=== PATIENT | female | born 1940 | race Caucasian/White ===

== ENCOUNTER 2016-10-23 20:12 | Inpatient (IN) | payer OTHER, MEDICARE ==
[~2016-10-23] VITALS: Ht 165.1 cm; Wt 83.5 kg
[~2016-10-23 20:12] MED LIST: AMT100 PO; ASPI-435 PO; BUTA1CAP17 PO; CLC100 PO; CYCL10TA6 PO; DILT120C67 PO; FLUT1INH7 PO; FRS/40 PO; FSM70 PO; HYDR2.5L TOP; IPRA1AER2 INH; IPRASOL4 INH; LDDP5 TD; LORA1TAB13 PO; LOSA100T30 PO; NITR0.4S UT; OXGN; OXYC-609 PO; OXYC15TA89 PO; PANT40TA PO; PLV75 PO; POTA20TA16 PO; PRED10TA PO; ROFL1TAB5 PO; SIMV10TA2 PO; TRMCR130WC TOP; TYL325X PO; UMEC1INH PO; VTMD PO
[2016-10-23] MEDS ORDERED: ALPR-411 PO (21:01)
[2016-10-23] MEDS ORDERED: BACL10TA PO (21:01)
[2016-10-23] MEDS ORDERED: TOPI100T20 PO (21:01)
[2016-10-23] MEDS ORDERED: CYNI1000 SC (21:01)
[2016-10-23] MEDS ORDERED: LOSA100T2 PO (21:01)
--- NOTE | 2016-10-23 21:07 | EMERGENCY ROOM VISIT NOTE ---
History Report prepared by Sharmin: Yassine Hou Under the Supervision of: Dr. Jesse Quintana M.D. First contact with patient: 20:56 Chief Complaint: RESPIRATORY PROBLEMS Stated Complaint: SOB,CHEST PAIN Nursing Triage Summary: Pt reports difficulty breathing, hx of COPD. pt reports back pain. denies chest pain. pt reports she uses Oxygen 4L nc at all times. History of Present Illness The patient is a 76 year old female with a history of COPD who presents to the Emergency Room with complaints of persistent shortness of breath throughout the week. The patient has a history of COPD for which she receives nebulizer treatments and wears BiPAP at night. She has been using BiPAP during the day lately secondary to shortness of breath. She wears 4L of oxygen. She takes Prednisone 10 mg as well. The patient also complains of clear productive cough. She has chest pain intermittently that is improved after taking Nitroglycerin. She has also had abdominal pain secondary to constipation. She denies fevers or chills. She had a fall two days ago but did not sustain any injuries. She has not seen her doctor in over two months. The patient lives alone but is frequently checked on by her grandson. She does have a cardiac history. She is not currently on antibiotics. Source of History: patient, family Onset: this week Position: other (respiratory) Quality: other (short of breath) Timing: other (persistent) Associated Symptoms: + abdominal pain, + chest pain, + cough, No chills, No fevers Review of Systems See HPI for pertinent positives & negatives. A total of 10 systems reviewed and were otherwise negative. Past Medical & Surgical Medical Problems: (1) AC MYOCARDIAL INFARCT,SUBENDO INFARCT,INITIAL EPIS (2) Acute bronchitis (3) ANXIETY STATE NOS (4) AORTIC VALVE DISORDER (5) ASTHMA, UNSPECIFIED (6) c diff colitis (7) CARDIOMYOPATH IN OTH DIS (8) Chest wall pain (9) CHRONIC RESPIRATORY FAILURE (10) Clostridium difficile colitis (11) CONGESTIVE HEART FAILURE NOS (12) COPD exacerbation (13) COPD exacerbation (14) copd exacerbation (15) ESOPHAGEAL REFLUX (16) Herpes zoster (17) HYPERLIPIDEMIA NEC/NOS (18) inflamation in lung (19) Multiple rib fractures (20) Multiple rib fractures (21) Multiple rib fractures (22) Neck pain, bilateral (23) OBSTR CHRONIC BRONCHITIS, W (ACUTE) EXACERBATION (24) OBSTRUCTIVE SLEEP APNEA (ADULT) (PEDIATRIC) (25) OSTEOARTHROS NOS-UNSPEC (26) OSTEOPOROSIS NOS (27) Rib pain on right side (28) Shortness of breath (29) Thoracic compression fracture (30) TOBACCO USE DISORDER Old medical records were reviewed. Nurse's notes were reviewed and I agree with. Family History FHx: lung disease Social History Smoking Status: Never Smoker Alcohol Use: none Drug Use: none Marital Status: Housing Status: lives with family Occupation Status: retired Current/Historical Medications Scheduled Amitriptyline HCl (Amitriptyline HCl), 100 MG PO HS Aspirin (Aspirin 81), 81 MG PO DAILY Clopidogrel Bisulfate (Clopidogrel), 75 MG PO DAILY Diltiazem Hcl Extended Release (Diltiazem Hcl Er), 120 MG PO DAILY Docusate Sodium (Docusate Sodium), 10 MG PO BID Fluticasone Furoate-Vilanterol (Breo Ellipta 200-25 Mcg/INH), 1 INHA PO DAILY Furosemide (Lasix), 120 MG PO DAILY Hydrocortisone (Topical) (Hydrocortisone), 1 APPLN TOP BID Ipratropium-Albuterol (Combivent Respimat), 1 PUFFS INH QID Ipratropium-Albuterol (Duoneb), 1 TREATMENT INH Q4H Losartan Potassium & Hydrochlo (Hyzaar), 12.5-100 MG PO DAILY Oxycodone Hcl (Oxycontin), 15 MG PO Q12 Oxygen (Oxygen), 4 LITERS NA CONTINOUS Pantoprazole (Protonix), 40 MG PO DAILY Potassium Ext Rel (Klor-Con), 60 MEQ PO TID Prednisone Tab (Prednisone), 10 MG PO QAM Roflumilast (Daliresp), 500 MCG PO DAILY Simvastatin (Zocor), 10 MG PO QPM Topiramate (Topamax), 100 MG PO DAILY Triamcinolone Acet (Aristocort 0.1%), 1 APPLN TOP BID Umeclidinium [place] (Incruse Ellipta), 1 INHA PO DAILY Scheduled PRN Acetaminophen (Tylenol), 650 MG PO Q4H PRN for Pain or Fever Alprazolam (Xanax), 0.5 MG PO Q12 PRN for Anxiety and/or Sedation Baclofen (Lioresal), 10 MG PO TID PRN for spasms Ikqshhqlfi-Bfwbdwsjovsai-Wgzdt (Fioricet), 1 TAB PO Q4 PRN for headache Nitroglycerin (Nitrostat), 0.4 MG UT UD PRN for Chest Pain Oxycodone HCl (Oxycodone HCl), 5 MG PO Q3.5H PRN for Pain Miscellaneous Medications Cyanocobalamin (Cyanocobalamin), 1 ML SC Allergies Coded Allergies: Zolpidem (Verified Allergy, Intermediate, RASH, 06/17/16) Banana (Verified Allergy, Unknown, 06/17/16) Metoprolol (Verified Adverse Reaction, Severe, BRONCHOSPASM,EXAC.COPD, ) Uncoded Allergies: "CLEANING PRODUCTS" (Allergy, Intermediate, Cleaning Products, 01/18/15) Physical Exam Vital Signs Date Time Temp Pulse Resp B/P Pulse Ox O2 Delivery O2 Flow Rate FiO2 10/23/16 22:13 73 16 134/81 100 Nebulizer 10.0 10/23/16 20:44 93 10/23/16 20:34 99 Nasal Cannula 4.0 10/23/16 20:21 96 Nasal Cannula 4.0 10/23/16 20:17 36.7 95 20 142/76 96 Nasal Cannula 4.0 Physical Exam General: Chronically ill-appearing older female, wearing baseline 4L nasal cannula. HEENT: Normal cephalic atraumatic. Pupils are equal round and reactive to light. Extraocular movements are intact. Oropharynx is pink with moist mucous membranes. No swelling of the mouth lips or tongue. Neck: Supple with a midline trachea. No meningeal signs or stiffness, no JVD or bruits. No Stridor. Chest: Scattered wheezing with diminished air movement, mild tachypnea. Heart: regular rate and rhythm. Abdomen: Soft nontender, nondistended without rebound guarding or rigidity. Extremities: No cyanosis clubbing or edema. No calf tenderness or assymetry. Several lower extremity bruises with no significant swelling, no petechiae. Spine/Back. Non tender to palpation. No CVA tenderness Skin: Good turgor without rashes. Neurologic exam: Cranial nerves two through 12 are intact. Motor and sensation are intact and symmetrical throughout. Medical Decision & Procedures ER Provider Diagnostic Interpretation: X-ray results as stated below per interpretation by me and the radiologist: CHEST ONE VIEW PORTABLE HISTORY: Atypical CHEST PAIN COMPARISON: Chest 06/07/2016. FINDINGS: The heart is normal in size. No pleural effusions. No pneumothorax. A few bibasilar linear scarlike densities remain unchanged. No new focal lung consolidations to suggest pneumonia. No evidence for pulmonary edema. Mild emphysema. IMPRESSION: No acute process. Electronically signed by: Redd Buck M.D. 10/23/2016 9:59 PM Dictated Date/Time: 10/23/2016 9:58 PM Laboratory Results 10/23/16 21:20 Red Blood Count 4.50, Mean Corpuscular Volume 85.6, Mean Corpuscular Hemoglobin 26.9, Mean Corpuscular Hemoglobin Concent 31.4, Mean Platelet Volume 9.0, Neutrophils (%) (Auto) 76.8, Lymphocytes (%) (Auto) 12.6, Monocytes (%) (Auto) 6.3, Eosinophils (%) (Auto) 3.6, Basophils (%) (Auto) 0.5, Neutrophils # (Auto) 6.77, Lymphocytes # (Auto) 1.11, Monocytes # (Auto) 0.56, Eosinophils # (Auto) 0.32, Basophils # (Auto) 0.04 10/23/16 21:20 Test 10/23/16 21:20 10/23/16 21:25 White Blood Count 8.82 K/uL (4.8-10.8) Red Blood Count 4.50 M/uL (4.2-5.4) Hemoglobin 12.1 g/dL (12.0-16.0) Hematocrit 38.5 % (37-47) Mean Corpuscular Volume 85.6 fL (80-100) Mean Corpuscular Hemoglobin 26.9 pg (25-34) Mean Corpuscular Hemoglobin Concent 31.4 g/dl (32-36) Platelet Count 329 K/uL (130-400) Mean Platelet Volume 9.0 fL (7.4-10.4) Neutrophils (%) (Auto) 76.8 % Lymphocytes (%) (Auto) 12.6 % Monocytes (%) (Auto) 6.3 % Eosinophils (%) (Auto) 3.6 % Basophils (%) (Auto) 0.5 % Neutrophils # (Auto) 6.77 K/uL (1.4-6.5) Lymphocytes # (Auto) 1.11 K/uL (1.2-3.4) Monocytes # (Auto) 0.56 K/uL (0.11-0.59) Eosinophils # (Auto) 0.32 K/uL (0-0.5) Basophils # (Auto) 0.04 K/uL (0-0.2) RDW Standard Deviation 43.7 fL (36.4-46.3) RDW Coefficient of Variation 13.9 % (11.5-14.5) Immature Granulocyte % (Auto) 0.2 % Immature Granulocyte # (Auto) 0.02 K/uL (0.00-0.02) Anion Gap 9.0 mmol/L (3-11) Est Creatinine Clear Calc Drug Dose 92.2 ml/min Estimated GFR () 105.2 Estimated GFR (Non- 90.8 BUN/Creatinine Ratio 24.0 (10-20) Calcium Level 8.6 mg/dl (8.5-10.1) Total Bilirubin 0.2 mg/dl (0.2-1) Direct Bilirubin < 0.1 mg/dl (0-0.2) Aspartate Amino Transf (AST/SGOT) 11 U/L (15-37) Alanine Aminotransferase (ALT/SGPT) 22 U/L (12-78) Alkaline Phosphatase 99 U/L (45-117) Total Protein 6.8 gm/dl (6.4-8.2) Albumin 3.4 gm/dl (3.4-5.0) Lipase 88 U/L (73-393) Bedside Troponin I 0.000 ng/ml (0-0.045) CY-Qeg-B-Type Natriuretic Peptide 178 pg/ml (0-900) Laboratory studies as stated above per my review. Medications Administered Medications (Trade) Dose Ordered Sig/Olimpia Route Start Time Stop Time Status Last Admin Dose Admin Methylprednisolone Sodium Succinate (Solu-Medrol IV) 125 mg ONE STAT IV 10/23/16 21:09 10/23/16 21:11 DC 10/23/16 21:30 125 MG Albuterol/ Ipratropium (Duoneb) 12 ml ONE ONCE INH 10/23/16 21:15 10/23/16 21:16 DC 10/23/16 21:36 12 ML ECG Indication: SOB/dyspnea Rate (beats per minute): 93 Rhythm: normal sinus Findings: no ectopy, other (non-specific T wave abnormalities) Comparison ECG Date: 17 June 2016 Change: no significant change ED Course 2057: Past medical records reviewed. The patient was evaluated in room C4, and a complete history and physical examination were performed. 2108: Solu-Medrol 125 mg IV. 2114: DuoNeb 12 ml INH. 2224: Checked on the patient. Updated her. 2299: [facility] Hospitalist Service consulted. The patient will be evaluated. Medical Decision Differential diagnosis includes COPD exacerbation, pneumonia, pneumothorax, acute coronary syndrome, arrhythmia. This patient comes in as described above. If she was placed in room C4. She is here for treatment and evaluation of increasing shortness of breath. She has significant history of severe COPD that is steroid and oxygen dependent and has been doing worse at home. She's been using her nebs about every hour or so and she gets extremely short of breath with any movement. She's had no fever or chills. No trauma of injury. Chest x-ray was obtained and was clear. She was given albuterol and Atrovent nebs over one hour and was feeling somewhat better but with this she still had some wheezing. She does not feel she is well enough to go home at this point I do think she needs to be admitted for the reasons outlined above. I do not find any evidence of pneumonia or CHF. Her cardiac evaluation was unremarkable so far. She will be admitted to the [facility] hospitalist group. Consults Time Called: [phone] Consulting Physician: [facility] Hospitalist Service Returned Call: [phone] Impression Primary Impression: COPD exacerbation Additional Impression: SOB (shortness of breath) Scribe Attestation The scribe's documentation has been prepared under my direction and personally reviewed by me in its entirety. I confirm that the note above accurately reflects all work, treatment, procedures, and medical decision making performed by me. Departure Information Dispostion Being Evaluated By Hospitalist Referrals Jaswant Patel M.D. (PCP) Patient Instructions My [facility] Problem Qualifiers
[2016-10-23] MEDS ORDERED: METHYLPREDNISOLONE 125 MG VIAL IV STA (21:09)
[2016-10-23] MEDS ORDERED: ALBUT/IPRATROP 3MG/0.5MG NEB 3 ML VIAL INH ONE (21:15)
[2016-10-23 21:32] LABS: BASO % 0.5 %; BASO ABS # 0.04 K/uL (0-0.2); COMPLETE YES; EOS % 3.6 %; HEMATOCRIT 38.5 % (37-47); IG% 0.2 %; LYMPH % 12.6 %; LYMPH ABS # 1.11 K/uL (1.2-3.4); MEAN CELL VOLUME 85.6 fL (80-100); MEAN CORPUSCULAR HEMOGLOBIN 26.9 pg (25-34); MEAN CORPUSCULAR HGB CONC 31.4 g/dl (32-36); MONO % 6.3 %; NEUT % 76.8 %; PLATELET COUNT 329 K/uL (130-400); WHITE BLOOD COUNT 8.82 K/uL (4.8-10.8)
[2016-10-23 21:48] LABS: ALT/SGPT 22 U/L (12-78); BLOOD UREA NITROGEN 14 mg/dl (7-18); CARBON DIOXIDE 31 mmol/L (21-32); CHLORIDE 103 mmol/L (98-107); CREATININE 0.58 mg/dl (0.60-1.20); GLUCOSE 117 mg/dl (70-99); POTASSIUM 3.8 mmol/L (3.5-5.1); SODIUM 143 mmol/L (136-145)
[2016-10-23 21:51] LABS: ALKALINE PHOSPHATASE 99 U/L (45-117); AST/SGOT 11 U/L (15-37)
[2016-10-23 22:00] LABS: CALCIUM 8.6 mg/dl (8.5-10.1)
--- NOTE | 2016-10-23 22:01 | DIAGNOSTIC IMAGING REPORT ---
CHEST ONE VIEW PORTABLE HISTORY: Atypical CHEST PAIN COMPARISON: Chest 06/07/2016. FINDINGS: The heart is normal in size. No pleural effusions. No pneumothorax. A few bibasilar linear scarlike densities remain unchanged. No new focal lung consolidations to suggest pneumonia. No evidence for pulmonary edema. Mild emphysema. IMPRESSION: No acute process. Electronically signed by: Redd Buck M.D. 10/23/2016 9:59 PM Dictated Date/Time: 10/23/2016 9:58 PM
[2016-10-23] MEDS ORDERED: ALUMINUM/MAGNESIUM/SIMETH (MAALOX MAX) 30 ML UDC PO PRN (23:15)
[2016-10-23] MEDS ORDERED: MAGNESIUM HYDROXIDE SUSP 30 ML UDC PO PRN (23:15)
[2016-10-23] MEDS ORDERED: ONDANSETRON INJ 2 MG/ML 2 ML VIAL IV PRN (23:15)
[2016-10-23] MEDS ORDERED: BACLOFEN 10 MG TAB PO PRN (23:30)
[2016-10-23] MEDS ORDERED: ALPRAZOLAM 0.5 MG TAB PO PRN (23:30)
[2016-10-23] MEDS ORDERED: NITROGLYCERIN 0.4 MG SL PER TAB CHARGE UT PRN (23:30)
--- NOTE | 2016-10-23 23:41 | History and Physical ---
History & Physical Date & Time of Service: Oct 23, 2016 at 23:20 Chief Complaint: Sob,Chest Pain Primary Care Physician: Jaswant Patel M.D. History of Present Illness Is a very pleasant 76-year-old female, with an extensive medical history which includes COPD, coronary artery disease, congestive heart failure, who presents today with shortness of breath for the past month, but acute worsening over the past 1 week. The patient states "I haven't been breathing write for a while". At her baseline she denies having a chronic cough. She states that occasionally she would have a dry quite hack, but thinks it's due to the use of her BiPAP. However for the past week she has been noticing a mildly productive cough. She states that the sputum is clear. There is no blood or purulence to the sputum. She also states that she is feeling constantly wheezy. She notes that she is also more short of breath, particularly with exertion. She states that at her baseline she is able to walk approximately 20 feet to the bathroom, but now for the past month she needs to stop half way and catch her breath before completing this task. She does have a history of CAD, and does note that she gets chest pain which she describes as "heartburn centrally". She has been taking her nitroglycerin for this, and notes that it actually helps. She also takes a PPI which she notes provides additional relief. She does note that she's been experiencing this discomfort more more frequently for the past month. It is not associated with exertion and happens mostly at rest. She denies palpitations. She denies lightheadedness, or syncope. She denies fevers, but says that she's been feeling sweaty, and has been having chills. Her appetite has been poor as well as her intake. She denies any nausea or vomiting. She denies abdominal pain. She has not had any diarrhea. She does note constipation for the past year since starting opiates for rib and vertebral fractures. She was most recently in [place] approximately 3 weeks ago. Her daughter, who is at the bedside also states that she was much more short of breath and meat than usual this year in [place] and as a result had to come back home sooner. Past Medical/Surgical History Medical Problems: (1) AC MYOCARDIAL INFARCT,SUBENDO INFARCT,INITIAL EPIS Status: Chronic (2) Acute bronchitis Status: Resolved (3) ANXIETY STATE NOS Status: Chronic (4) AORTIC VALVE DISORDER Status: Chronic (5) ASTHMA, UNSPECIFIED Status: Chronic (6) CARDIOMYOPATH IN OTH DIS Status: Chronic (7) Chest wall pain Status: Resolved (8) CHRONIC RESPIRATORY FAILURE Status: Chronic (9) Clostridium difficile colitis Status: Resolved (10) CONGESTIVE HEART FAILURE NOS Status: Chronic (11) COPD exacerbation Status: Resolved (12) ESOPHAGEAL REFLUX Status: Chronic (13) Herpes zoster Status: Chronic (14) HYPERLIPIDEMIA NEC/NOS Status: Chronic (15) Multiple rib fractures Status: Resolved (16) Multiple rib fractures Status: Resolved (17) Multiple rib fractures Status: Resolved (18) OBSTR CHRONIC BRONCHITIS, W (ACUTE) EXACERBATION Status: Chronic (19) OBSTRUCTIVE SLEEP APNEA (ADULT) (PEDIATRIC) Status: Chronic (20) OSTEOARTHROS NOS-UNSPEC Status: Chronic (21) OSTEOPOROSIS NOS Status: Chronic (22) Rib pain on right side Status: Resolved (23) Shortness of breath Status: Resolved (24) TOBACCO USE DISORDER Status: Chronic Family History FHx: lung disease Father had colon cancer Mother had heart disease otherwise unspecified Social History Smoking Status: Former Smoker Smokeless Tobacco Use: No Alcohol Use: none Drug Use: none Marital Status: Housing status: lives with family (grandson; daughter lives 3 minutes away and does majority of care for mother) Occupational Status: retired Immunizations History of Influenza Vaccine: No History of Tetanus Vaccine?: No Tetanus Immunization Date: Jun 07, 2003 History of Pneumococcal: Yes Pneumococcal Date: Jun 07, 2004 History of Hepatitis B Vaccine: No Multi-Drug Resistant Organisms History of MDRO: No Allergies Coded Allergies: Zolpidem (Verified Allergy, Intermediate, RASH, 06/17/16) Banana (Verified Allergy, Unknown, 06/17/16) Metoprolol (Verified Adverse Reaction, Severe, BRONCHOSPASM,EXAC.COPD, ) Uncoded Allergies: "CLEANING PRODUCTS" (Allergy, Intermediate, Cleaning Products, 01/18/15) Home Medications Scheduled Amitriptyline HCl (Amitriptyline HCl), 100 MG PO HS Aspirin (Aspirin 81), 81 MG PO DAILY Clopidogrel Bisulfate (Clopidogrel), 75 MG PO DAILY Diltiazem Hcl Extended Release (Diltiazem Hcl Er), 120 MG PO DAILY Docusate Sodium (Docusate Sodium), 10 MG PO BID Fluticasone Furoate-Vilanterol (Breo Ellipta 200-25 Mcg/INH), 1 INHA PO DAILY Furosemide (Lasix), 120 MG PO DAILY Hydrocortisone (Topical) (Hydrocortisone), 1 APPLN TOP BID Ipratropium-Albuterol (Combivent Respimat), 1 PUFFS INH QID Ipratropium-Albuterol (Duoneb), 1 TREATMENT INH Q4H Losartan Potassium & Hydrochlo (Hyzaar), 12.5-100 MG PO DAILY Oxycodone Hcl (Oxycontin), 15 MG PO Q12 Oxygen (Oxygen), 4 LITERS NA CONTINOUS Pantoprazole (Protonix), 40 MG PO DAILY Potassium Ext Rel (Klor-Con), 60 MEQ PO TID Prednisone Tab (Prednisone), 10 MG PO QAM Roflumilast (Daliresp), 500 MCG PO DAILY Simvastatin (Zocor), 10 MG PO QPM Topiramate (Topamax), 100 MG PO DAILY Triamcinolone Acet (Aristocort 0.1%), 1 APPLN TOP BID Umeclidinium [place] (Incruse Ellipta), 1 INHA PO DAILY Scheduled PRN Acetaminophen (Tylenol), 650 MG PO Q4H PRN for Pain or Fever Alprazolam (Xanax), 0.5 MG PO Q12 PRN for Anxiety and/or Sedation Baclofen (Lioresal), 10 MG PO TID PRN for spasms Snarfgybtw-Yzsokzcxciccm-Ytbhq (Fioricet), 1 TAB PO Q4 PRN for headache Nitroglycerin (Nitrostat), 0.4 MG UT UD PRN for Chest Pain Oxycodone HCl (Oxycodone HCl), 5 MG PO Q3.5H PRN for Pain Miscellaneous Medications Cyanocobalamin (Cyanocobalamin), 1 ML SC Review of Systems Constitutional: + chills, + fatigue, + sweats, No fever, No weight loss Eyes: No eye pain, No redness, No worsening of vision ENT: No sore throat, No tinnitus, No unusual epistaxis Respiratory: + cough, + dyspnea on exertion, + wheezing, No hemoptysis Cardiovascular: + chest pain, No claudication, No edema, No orthopnea, No palpitations Abdomen: + constipation, No diarrhea, No nausea, No pain, No vomiting Musculoskeletal: No joint pain, No muscle pain Genitourinary - Female: No dysuria, No urinary frequency Neurologic: No memory loss, No numbness/tingling, No vertigo Psychiatric: No anxiety Hematologic / Lymphatic: No abnormal bleeding/bruising, No night sweats, No swollen lymph nodes Integumentary: No color change, No new/changing skin lesions, No rash Physical Exam Vital Signs Date Time Temp Pulse Resp B/P Pulse Ox O2 Delivery O2 Flow Rate FiO2 10/23/16 22:13 73 16 134/81 100 Nebulizer 10.0 10/23/16 20:44 93 10/23/16 20:34 99 Nasal Cannula 4.0 10/23/16 20:21 96 Nasal Cannula 4.0 10/23/16 20:17 36.7 95 20 142/76 96 Nasal Cannula 4.0 General Appearance: WD/WN, no apparent distress, + obese Head: normocephalic, atraumatic Eyes: normal inspection, EOMI ENT: hearing grossly normal, pharynx normal Neck: supple, no adenopathy, no JVD (difficult to assess, due to extensive soft tissue around the neck) Respiratory/Chest: + pertinent finding (coarse breath sounds bilaterally, and expiratory wheezing, no focal crackles) Cardiovascular: regular rate, rhythm, no gallop, no murmur Abdomen/GI: normal bowel sounds, non tender, soft Back: no CVA tenderness, no muscle spasm Extremities/Musculoskelatal: no calf tenderness, no pedal edema Neurologic/Psych: alert, normal mood/affect, oriented x 3 Skin: normal color, warm/dry, no rash Lymphatic: no adenopathy Diagnostics Laboratory Results Results Past 24 Hours Test 10/23/16 21:20 10/23/16 21:25 Range/Units White Blood Count 8.82 4.8-10.8 K/uL Red Blood Count 4.50 4.2-5.4 M/uL Hemoglobin 12.1 12.0-16.0 g/dL Hematocrit 38.5 37-47 % Mean Corpuscular Volume 85.6 80-100 fL Mean Corpuscular Hemoglobin 26.9 25-34 pg Mean Corpuscular Hemoglobin Concent 31.4 32-36 g/dl Platelet Count 329 130-400 K/uL Mean Platelet Volume 9.0 7.4-10.4 fL Neutrophils (%) (Auto) 76.8 % Lymphocytes (%) (Auto) 12.6 % Monocytes (%) (Auto) 6.3 % Eosinophils (%) (Auto) 3.6 % Basophils (%) (Auto) 0.5 % Neutrophils # (Auto) 6.77 1.4-6.5 K/uL Lymphocytes # (Auto) 1.11 1.2-3.4 K/uL Monocytes # (Auto) 0.56 0.11-0.59 K/uL Eosinophils # (Auto) 0.32 0-0.5 K/uL Basophils # (Auto) 0.04 0-0.2 K/uL RDW Standard Deviation 43.7 36.4-46.3 fL RDW Coefficient of Variation 13.9 11.5-14.5 % Immature Granulocyte % (Auto) 0.2 % Immature Granulocyte # (Auto) 0.02 0.00-0.02 K/uL Sodium Level 143 136-145 mmol/L Potassium Level 3.8 3.5-5.1 mmol/L Chloride Level 103 98-107 mmol/L Carbon Dioxide Level 31 21-32 mmol/L Anion Gap 9.0 3-11 mmol/L Blood Urea Nitrogen 14 7-18 mg/dl Creatinine 0.58 0.60-1.20 mg/dl Est Creatinine Clear Calc Drug Dose 92.2 ml/min Estimated GFR () 105.2 Estimated GFR (Non- 90.8 BUN/Creatinine Ratio 24.0 10-20 Random Glucose 117 70-99 mg/dl Calcium Level 8.6 8.5-10.1 mg/dl Total Bilirubin 0.2 0.2-1 mg/dl Direct Bilirubin < 0.1 0-0.2 mg/dl Aspartate Amino Transf (AST/SGOT) 11 15-37 U/L Alanine Aminotransferase (ALT/SGPT) 22 12-78 U/L Alkaline Phosphatase 99 45-117 U/L Total Protein 6.8 6.4-8.2 gm/dl Albumin 3.4 3.4-5.0 gm/dl Lipase 88 73-393 U/L Bedside Troponin I 0.000 0-0.045 ng/ml FD-Vvs-L-Type Natriuretic Peptide 178 0-900 pg/ml CXR normal EKG Pending Impression Assessment and Plan 76-year-old female with history of COPD, CAD, and congestive heart failure, presents with increasing shortness of breath. Given the sudden decline over the past month, I certainly would consider COPD exacerbation is likely component to her presentation. However with overall deterioration, who will be with considering alternative diagnoses, such as a worsening of her congestive heart failure, or sequelae of chronic lung disease which would include pulmonary hypertension. Our plan for her is as follows: COPD Exacerbation - DuoNeb's every 4 hours daily, and every 2 hours for shortness of breath or wheezing - Patient received 125 mg Solu-Medrol in the emergency department We'll continue with 40 mg Solu-Medrol IV twice a day; rapidly weaned down to baseline dose of 10 mg prednisone daily - Set patient up for inpatient BiPAP - Hold all home medications at this time - Consult pulmonary service, for recommendations on hold med changes in light of subacute decline over the past month - Echocardiogram to be ordered to evaluate for alternative causes of increasing shortness of breath which include: CHF, pulmonary hypertension, new wall motion abnormalities suggestive of TN - Patient would benefit from repeat pulmonary function testing, once acute illness has improved Chronic shortness of breath - Evaluate further causes with echocardiogram, as described above - Increasing chest discomfort responsive to nitroglycerin, which occurs at rest is suggestive of possible unstable angina - EKG will be obtained and evaluated for any changes compared to prior EKGs - At this point I would hold off on checking a troponin level, as the patient does not complain of chest pain currently or in the past couple days Congestive heart failure - Continue Lasix 120 mg daily with 20 mEq potassium supplementation - Daily I/O, weight - No evidence clinically of acute fluid overload, BNP is negative - We'll repeat echocardiogram to evaluate ejection fraction Coronary artery disease - Continue aspirin, Plavix, simvastatin - Patient has an allergy to metoprolol; continue diltiazem Hypertension - Continue Hyzaar Chronic Back Pain - Secondary to vertebral flat fracture - Continue Flexeril - Continue oxycodone Anxiety - Continue Xanax Constipation - Continue Colace, milk of magnesium - We'll order MiraLAX DVT prophylaxis - SCDs to the knee - Lovenox 40 mg daily Disposition - Telemetry - OT and PT orders have been placed CODE STATUS - Patient consents to chest compressions/cardioversion; declines intubation and mechanical ventilation - Designates cirilo Ontiveros as substitute decision-maker if needed Level of Care Telemetry Resuscitation Status FULL NO MECH VENTILATION VTE Prophylaxis VTE Risk Assessment Done? Y/N: Yes Risk Level: Moderate Given or contraindicated: Enoxaparin (Lovenox)SQ Assessment and Plan Attending Addendum: I have physically seen and examined this patient, have directed their medical care, have supervised the medical residents activities, and agree with the H&P as noted above, with the following changes: NONE
[2016-10-24] VITALS (11 sets, daily range): BP systolic 130–178; BP diastolic 70–82; PULSE 71–110; TEMP 36.4–37; O2SAT 90–99; Ht 165.1 cm; Wt 83.5 kg
[2016-10-24 06:29] LABS: HEMATOCRIT 38.8 % (37-47); MEAN CELL VOLUME 84.7 fL (80-100); MEAN CORPUSCULAR HEMOGLOBIN 26.6 pg (25-34); MEAN CORPUSCULAR HGB CONC 31.4 g/dl (32-36); MEAN PLATELET VOLUME 8.9 fL (7.4-10.4); PLATELET COUNT 326 K/uL (130-400); RED BLOOD COUNT 4.58 M/uL (4.2-5.4); WHITE BLOOD COUNT 10.09 K/uL (4.8-10.8)
[2016-10-24 06:38] LABS: PROTHROMBIN TIME (PATIENT) 11.2 SECONDS (9.0-12.0)
[2016-10-24 07:05] LABS: BUN/CREATININE RATIO 22.9 (10-20); CALCIUM 8.8 mg/dl (8.5-10.1); CREATININE 0.64 mg/dl (0.60-1.20); POTASSIUM 3.8 mmol/L (3.5-5.1)
[2016-10-24] MEDS: ALBUT/IPRATROP 3MG/0.5MG NEB 3 ML VIAL INH SCH ×5 (07:35→19:48)
[2016-10-24] MEDS ORDERED: INFLUENZA ADMINISTRATION CHARGE ONE (08:00)
[2016-10-24] MEDS ORDERED: INFLUENZA VIRUS QUAD VACCINE 0.5 ML SYR IM. ONE (08:00)
[2016-10-24] MEDS: TRIAMCINOLONE ACET 0.1% CR 15 GM TUBE EXT SCH ×2 (08:04→20:20)
[2016-10-24] MEDS: METHYLPREDNISOLONE IV 40 MG in SYRINGE 0 ML IV SCH ×2 (08:09→20:22)
[2016-10-24] MEDS: PANTOprazole SOD 40 MG TAB PO SCH (08:10)
[2016-10-24] MEDS: DILTIAZEM HCL 120 MG EXT REL CAP PO SCH (08:11)
[2016-10-24] MEDS: ASPIRIN 81 MG ECTAB PO SCH (08:11)
[2016-10-24] MEDS: LOSARTAN/HCTZ 50-12.5 EA TAB PO SCH (08:11)
[2016-10-24] MEDS: TOPIRAMATE 100 MG TAB PO SCH (08:12)
[2016-10-24] MEDS: POTASSIUM CHLORIDE 20 MEQ TABCR PO SCH ×3 (08:12→20:21)
[2016-10-24] MEDS: LOSARTAN POTASSIUM 50 MG TAB PO SCH (08:13)
[2016-10-24] MEDS: ROFLUMILAST 500 MCG TAB PO SCH (08:13)
[2016-10-24] MEDS: FUROSEMIDE 40 MG TAB PO SCH (08:19)
[2016-10-24] MEDS: CLOPIDOGREL BISULFATE 75 MG TAB PO SCH (08:20)
[2016-10-24] MEDS: DOCUSATE SODIUM 100 MG CAP PO SCH ×2 (08:21→20:21)
[2016-10-24] MEDS: ENOXAPARIN 40 MG/0.4 ML SYR SC SCH (08:22)
[2016-10-24] MEDS ORDERED: LEVALBUTEROL 1.25MG/3ML NEB INH PRN (08:45)
[2016-10-24] MEDS: OXYCODONE HCL 15 MG TABCR (OXYCONTIN) PO SCH ×2 (09:06→20:33)
--- NOTE | 2016-10-24 10:56 | Pulmonary Consultation ---
History General Date of Service: Oct 24, 2016. Stated Complaint: Copd Exacerbation HPI The patient is a 76 year old female who presents to [facility] with complaints of Copd Exacerbation. The patient's primary care provider is Jaswant Patel M.D.. 76-year-old female admitted for progressive dyspnea on exertion/shortness of breath at rest over the previous 3-4 weeks. The patient notes severe increase in her dyspnea at rest over the previous week and becoming to Her she presented to the emergency room. In the emergency room the patient was noted to be tachypnea joint signs of labored breathing have active wheezing on physical exam was initiated on BiPAP and given Solu-Medrol 125 mg IV. She has been noting increased dyspnea on exertion with tachypnea, nonproductive cough and atypical chest pain relieved with nitroglycerin over the past 3-4 weeks. She is also noted increasing constipation over this period of time. Currently she denies: Fever, chills, productive cough, unexplained weight loss, pleurisy or typical chest pain. Current Hospital Work-up: 1. EKG: NSR no signs of acute ischemic changes 2. WBC: 10K 3. PLT: 326 4. H/H: 12/39 5. INR: 1.0 6. PT: 11.2 7. BUN/Cr: 14/0.58 8. Pro-BNP: 178 9. SaO2: 96-100% 10 Flow Rate: 4-10L 11. Troponin I: Pending 12. CXR: Treatment: 1. Solu-Medrol: 125mg IV in the ED 2. BiPAP: 3. Lasix 20mg IV ED 4. Solu-Medrol: 40mg IV BID 5. Daliresp 500mcg OP QD 6. [place] Neb QID Previous Work-up 1. Stress Echo (01/30/15) No signs of significant myocardial ischemia Normal LVEF Mild TR 2. BAL (06/07/2016) Haemophilus Parahaemolyticus 3. CT: Chest, ABD, Pelvis (05/15/2016) Bronchiectasis of the RB7, RB10 regions with associated RLL posterior atelectasis Review of Systems Constitutional: reports: malaise, weakness ENT: reports: no symptoms Cardiovascular: reports: chest tightness Respiratory: reports: as stated in HPI Gastrointestinal: reports: as stated in HPI Genitourinary - Female: reports: no symptoms Musculoskeletal: reports: back pain, joint pain, myalgias Integumentary: reports: no symptoms Neurologic: reports: no symptoms Psychiatric: reports: no symptoms Endocrine: no symptoms Hematologic / Lymphatic: no symptoms Allergic / Immunologic: no symptoms Past Medical History Past Medical History: 1. Altered mental status 2. Ambulatory dysfunction 3. Anxiety 4. C. difficile colitis 5. Cardiomyopathy/ Chronic ischemic heart disease 6. Cataract 7. Migraines 8. Moderately Sever Chronic obstructive pulmonary disease a. Dependence on supplemental oxygen b. FEV1: 1.00/52% (11/30/2011) c. FVC: significant reversibility 9. Chronic pain 10. Chronic reflux esophagitis 11. 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 GI bleed 14. Herpes zoster 15. Hiatal hernia 16. Hyperlipidemia 17. Hypertension 18. Hypokalemia 19. Insomnia 20. Leg weakness 21. Multiple rib fractures 22. Obstructive sleep apnea 23. Osteoporosis 24. Recurrent UTI 25. Renal calculi 26. Vitamin B12 deficiency Past Surgical History: 1. Card Cath 2. Hysterectomy 3. Oophorectomy Family History FHx: lung disease 1. Asthma 2. Heart Disease 3. Colon Cancer 4. Kidney Cancer 5. Heart Disease Social History Denied: History of Drug Use Former smoker ( ) Housing Without Smoke Detectors Marital History - Never Drank Alcohol Occupation: Retired From Work [employer] Housing: lives with family (grandson; daughter lives 3 minutes away and does majority of care for mother) Hx Tobacco Use In Past Year?: No Smoking Status: Never Smoker Marital status: Housing status: lives with family (grandson; daughter lives 3 minutes away and does majority of care for mother) Occupational Status: retired Immunizations History of Influenza Vaccine: No History of Tetanus Vaccine?: No Tetanus Immunization Date: Jun 07, 2003 History of Pneumococcal: Yes Pneumococcal Date: Jun 07, 2004 History of Hepatitis B Vaccine: No History of MDRO History of MDRO: No Allergies Coded Allergies: Zolpidem (Verified Allergy, Intermediate, RASH, 06/17/16) Banana (Verified Allergy, Unknown, 06/17/16) Metoprolol (Verified Adverse Reaction, Severe, BRONCHOSPASM,EXAC.COPD, ) Uncoded Allergies: "CLEANING PRODUCTS" (Allergy, Intermediate, Cleaning Products, 01/18/15) Current Medications Reported Home Medications Medications Dose Route/Sig Max Daily Dose Days Date Category Dose Instructions Hyzaar (Losartan Potassium & Hydrochlo) 1 Tab Tab 12.5-100 Mg PO DAILY 90 10/23/16 Reported Xanax (Alprazolam) 0.5 Mg Tab 0.5 Mg PO Q12 PRN 10/23/16 Reported Lioresal (Baclofen) 10 Mg Tab 10 Mg PO TID PRN 10/23/16 Reported Cyanocobalamin 1,000 Mcg/Ml Inj 1 Ml SC 10/23/16 Reported Topamax (Topiramate) 100 Mg Tab 100 Mg PO DAILY 10/23/16 Reported Oxycodone HCl 5 Mg Tab 5 Mg PO Q3.5H PRN 06/17/16 Reported Oxycontin (Oxycodone Hcl) 15 Mg Tab 15 Mg PO Q12 06/17/16 Reported Duoneb (Ipratropium-Albuterol) 3 Ml Nebu 1 Treatment INH Q4H 06/17/16 Reported Hydrocortisone (Hydrocortisone (Topical)) 2.5 % Lot 1 Appln TOP BID 10 06/17/16 Reported Combivent Respimat (Ipratropium-Albuterol) 1 Aer Aer 1 Puffs INH QID 06/17/16 Reported Fioricet (Kfzwegdvhy-Lmmjzdrohlduu-Dodco) 1 Cap Cap 1 Tab PO Q4 PRN 06/17/16 Reported Aspirin 81 (Aspirin) 81 Mg Tab 81 Mg PO DAILY 06/17/16 Reported Prednisone 10 Mg Tab 10 Mg PO QAM 06/03/16 Reported Docusate Sodium 100 Mg Cap 10 Mg PO BID 05/23/16 Rx Incruse Ellipta (Umeclidinium [place]) 62.5 Mcg/Inh Inh 1 Inha PO DAILY 30 05/23/16 Rx Breo Ellipta 200-25 Mcg/INH (Fluticasone Furoate-Vilanterol) 1 Inh Inh 1 Inha PO DAILY 05/23/16 Rx Tylenol (Acetaminophen) 325 Mg Tab 650 Mg PO Q4H PRN 30 05/23/16 Rx Klor-Con (Potassium Chloride) 20 Meq Tabcr 60 Meq PO TID 05/15/16 Reported Daliresp (Roflumilast) 500 Mcg Tab 500 Mcg PO DAILY 04/12/16 Reported Protonix (Pantoprazole Sodium) 40 Mg Tab 40 Mg PO DAILY 01/18/15 Reported Diltiazem Hcl Er (Diltiazem Hcl Extended Release) 120 Mg Cap 120 Mg PO DAILY 01/18/15 Reported Amitriptyline HCl 100 Mg Tab 100 Mg PO HS 01/18/15 Reported Clopidogrel (Clopidogrel Bisulfate) 75 Mg Tab 75 Mg PO DAILY 01/18/15 Reported Aristocort 0.1% (Triamcinolone Acet) 90 Appln/30 Gm Cr 1 Appln TOP BID 01/19/13 Reported APPLY SPARINGLY TO AFFECTED AREA(S). Nitrostat (Nitroglycerin) 0.4 Mg Sub 0.4 Mg UT UD PRN 01/19/[address] ONE TABLET UNDER THE TONGUE EVERY MINUTES FOR UP TO 3 DOSES IF NEEDED FOR CHEST PAIN. Oxygen Gas 4 Liters NA CONTINOUS 01/19/13 Reported Zocor (Simvastatin) 10 Mg Tab 10 Mg PO QPM 04/19/11 Reported Lasix (Furosemide) 40 Mg Tab 120 Mg PO DAILY 04/19/11 Reported Physical Physical Exam Vital Signs: Date Time Temp Pulse Resp B/P Pulse Ox O2 Delivery O2 Flow Rate FiO2 10/24/16 08:30 36.8 104 18 144/70 97 Nasal Cannula 4.0 10/24/16 08:00 98 Nasal Cannula 4.0 10/24/16 07:36 110 20 98 Nasal Cannula 4.0 10/24/16 04:00 36.8 88 16 141/82 98 CPAP 10/24/16 04:00 97 Nasal Cannula 4.0 10/24/16 00:15 37.0 97 20 178/81 97 Nasal Cannula 4.0 10/23/16 23:53 76 18 128/70 97 10/23/16 22:13 73 16 134/81 100 Nebulizer 10.0 10/23/16 20:44 93 10/23/16 20:34 99 Nasal Cannula 4.0 10/23/16 20:21 96 Nasal Cannula 4.0 10/23/16 20:17 36.7 95 20 142/76 96 Nasal Cannula 4.0 General Appearance: moderate distress Head: NORMOCEPHALIC, ATRAUMATIC Eyes: PERRLA, NO DISCHARGE, EOMI, SCLERAE NORMAL ENT: NORMAL EAR EXAM, NORMAL NASAL EXAM, NORMAL MOUTH EXAM, NORMAL THROAT EXAM , NORMAL DENTAL EXAM Neck: NORMAL RANGE OF MOTION, NO TENDERNESS, TRACHEA MIDLINE, NO STRIDOR Respiratory: accessory muscle use, rhonchi, wheezing, other (thoracic ultrasound: Showing minimal bilateral B-lines at the apices notable bilateral B- lines at the bases no pleural effusions noted) Cardiovasular: REGULAR RATE/RHYTHM, NORMAL S1S2, NO M/G/R, NO MURMUR, NO GALLOP Abdomen: NO REBOUND, NO MASSES, NO GUARDING, NO ORGANOMEGALY, hypoactive bowel sounds Genitourinary - Female: EXTERNAL GENITALIA NORMAL Back: NORMAL INSPECTION, NO MIDLINE TENDERNESS, paravertebral tenderness Upper Extremities: NO EDEMA Lower Extremities: edema Edema: Bilateral LE (2+) Pulses: carotid (R) (1+), carotid (L) (1+), posterior tibial (R), posterior tibial (L) (1+) Neuro: ALERT, ORIENTED x 3, NORMAL MOTOR EXAM, NORMAL SENSATION Reflexes: biceps (R) (2+), bicpes (L) (2+), achilles (R) (2+), achilles (L) (2+ ) Babinski Testing: right (downgoing), left (downgoing) Psychiatric: NORMAL AFFECT, NO SUICIDAL IDEATION Diagnostics Labs Results Past 24 Hours Test 10/23/16 21:20 10/23/16 21:25 10/24/16 06:18 Range/Units White Blood Count 8.82 10.09 4.8-10.8 K/uL Red Blood Count 4.50 4.58 4.2-5.4 M/uL Hemoglobin 12.1 12.2 12.0-16.0 g/dL Hematocrit 38.5 38.8 37-47 % Mean Corpuscular Volume 85.6 84.7 80-100 fL Mean Corpuscular Hemoglobin 26.9 26.6 25-34 pg Mean Corpuscular Hemoglobin Concent 31.4 31.4 32-36 g/dl Platelet Count 329 326 130-400 K/uL Mean Platelet Volume 9.0 8.9 7.4-10.4 fL Neutrophils (%) (Auto) 76.8 % Lymphocytes (%) (Auto) 12.6 % Monocytes (%) (Auto) 6.3 % Eosinophils (%) (Auto) 3.6 % Basophils (%) (Auto) 0.5 % Neutrophils # (Auto) 6.77 1.4-6.5 K/uL Lymphocytes # (Auto) 1.11 1.2-3.4 K/uL Monocytes # (Auto) 0.56 0.11-0.59 K/uL Eosinophils # (Auto) 0.32 0-0.5 K/uL Basophils # (Auto) 0.04 0-0.2 K/uL RDW Standard Deviation 43.7 41.9 36.4-46.3 fL RDW Coefficient of Variation 13.9 13.7 11.5-14.5 % Immature Granulocyte % (Auto) 0.2 % Immature Granulocyte # (Auto) 0.02 0.00-0.02 K/uL Sodium Level 143 140 136-145 mmol/L Potassium Level 3.8 3.8 3.5-5.1 mmol/L Chloride Level 103 103 98-107 mmol/L Carbon Dioxide Level 31 28 21-32 mmol/L Anion Gap 9.0 9.0 3-11 mmol/L Blood Urea Nitrogen 14 15 7-18 mg/dl Creatinine 0.58 0.64 0.60-1.20 mg/dl Est Creatinine Clear Calc Drug Dose 92.2 83.5 ml/min Estimated GFR () 105.2 101.9 Estimated GFR (Non- 90.8 87.9 BUN/Creatinine Ratio 24.0 22.9 10-20 Random Glucose 117 148 70-99 mg/dl Calcium Level 8.6 8.8 8.5-10.1 mg/dl Total Bilirubin 0.2 0.2-1 mg/dl Direct Bilirubin < 0.1 0-0.2 mg/dl Aspartate Amino Transf (AST/SGOT) 11 15-37 U/L Alanine Aminotransferase (ALT/SGPT) 22 12-78 U/L Alkaline Phosphatase 99 45-117 U/L Total Protein 6.8 6.4-8.2 gm/dl Albumin 3.4 3.4-5.0 gm/dl Lipase 88 73-393 U/L Bedside Troponin I 0.000 0-0.045 ng/ml GY-Htd-Y-Type Natriuretic Peptide 178 0-900 pg/ml Prothrombin Time 11.2 9.0-12.0 SECONDS Prothromb Time International Ratio 1.0 0.9-1.1 Troponin I < 0.015 0-0.045 ng/ml Diagnostic Radiology CT: Chest, ABD, Pelvis (05/15/2016) Bronchiectasis of the RB7, RB10 regions with associated RLL posterior atelectasis EKG EKG: NSR no signs of acute ischemic changes Impression Assessment and Plan 76-year-old female admitted for acute on chronic shortness of breath/dyspnea: #1 dyspnea: At this time I agree with current steroid use and holding off on antibiotics. I will also order a noncontrast CT of the chest and patient had previous CT showing bronchiectatic change in the right lower lobe with chronic atelectasis. Also order KUB as patient has decreased/hypo-attenuated bowel sounds history of chronic opiate use and C. difficile. Also follow-up on influenza A and B swab, echocardiogram, and initiate Xopenex on a when necessary basis. Also agree with current BiPAP settings and continued use is much as tolerated. #2 ID: Order C. difficile sample in place patient isolation for C. difficile/ history of Thank you for this consultation we'll continue to follow.
--- NOTE | 2016-10-24 11:36 | DIAGNOSTIC IMAGING REPORT ---
CT OF THE CHEST WITHOUT IV CONTRAST CLINICAL HISTORY: Shortness of breath. COPD exacerbation. Right lower lobe bronchiectasis. COMPARISON STUDY: Chest CT April 12, 2016 and chest radiograph October 23, 2016. CT DOSE: 550.13 mGy.cm TECHNIQUE: Axial images of the chest were obtained without IV contrast. Images were reviewed in the axial, sagittal, and coronal planes. IV contrast was not administered for this examination. FINDINGS: No enlarged axillary, mediastinal or hilar lymph nodes are present. There is no pericardial effusion. There is moderate coronary artery calcification. An aberrant right subclavian artery is incidentally noted. Central airways are patent. There is moderate emphysema. There are no areas of consolidation to suggest pneumonia. There are no suspicious pulmonary nodules. A few small calcified and noncalcified pulmonary nodules are unchanged in its earlier exams. These are benign. No new nodules are present. There are old bilateral rib fractures. There is a severe T4 compression fracture which has progressed since exam of May 13, 2016. Minimal retropulsion at this level. Note is also made of a healing fracture through the spinous process at this level. There is a mild T3 compression fracture. IMPRESSION: 1. No acute intrathoracic findings. 2. Moderate emphysema. 3. No thoracic lymphadenopathy. 4. Severe T4 compression fracture which is old. Vertebral body height loss has significantly increased since CT of May 13, 2016. Healing fracture through the spinous process of the T4 vertebra. Electronically signed by: Ovidio Santos M.D. 10/24/2016 11:34 AM Dictated Date/Time: 10/24/2016 11:23 AM
--- NOTE | 2016-10-24 13:17 | DIAGNOSTIC IMAGING REPORT ---
KUB CLINICAL HISTORY: chronic opioid use COMPARISON STUDY: 05/13/2016 FINDINGS: There is no pathologic bowel dilatation. There is no conventional radiographic evidence organomegaly. There are no calcification suspicious for renal calculi. There are nonspecific pelvic basin calcifications likely vascular. There are old rib fractures present. There is scattered stool present within the colon. IMPRESSION: No evidence of pathologic bowel dilatation. No evidence of significant constipation. Electronically signed by: Stephen Ferrell M.D. 10/24/2016 1:15 PM Dictated Date/Time: 10/24/2016 1:13 PM
[2016-10-24] MEDS ORDERED: PERFLUTREN LIPID MICROSPHERE (DEFINITY) IV ONE (14:05)
[2016-10-24] MEDS: BUTALBITAL/ACETAMIN/CAFFEINE TAB PO PRN ×2 (14:50→19:14)
--- NOTE | 2016-10-24 17:12 | ECHOCARDIOGRAM REPORT ---
*NOTICE TO RECEIVING CONSTITUTION PARTY AGENCY This information is strictly Confidential and protected under [place] law. [place] law prohibits you from making any further disclosure of this information unless further disclosure is expressly permitted by the written consent of the person to whom it pertains or is authorized by law. A general authorization for the release of medical or other information is not sufficient for this purpose. Hospital accepts no responsibility if the information is made available to any other person, INCLUDING THE PATIENT. Interpretation Summary * Name: WANDY ROE Study Date: 10/24/2016 01:21 PM BP: 144/81 mmHg * Patient Location: [facility]\S\N283\S\2 HR: 101 * : 1940 (M/d/yyyy) Gender: Female Height: 65 in * Age: 76 yrs Ethnicity: CA Weight: 189 lb * Ordering Physician: Tylor Allen * Referring Physician: Self, Referred * Performed By: Eli Chandler [facility] * * Reason For Study: CHF * BSA: 1.9 m2 * Normal biventricular systolic function. * Mild concentric left ventricular hypertrophy. * Left ventricular diastolic dysfunction. * Mild left atrial dilatation. * No significant valvular abnormalities. Procedure Details * A complete two-dimensional transthoracic echocardiogram was performed (2D, M-mode, Doppler and color flow Doppler). * The study was technically difficult. * There were technical limitations due to patient'sPoor acoustic windows secondary to severe lung disease. * A contrast injection of Definity was performed to improve assessment of LV function. * Contrast was injected into an intravenous site in the right arm. * One vial of Definity ultrasound contrast was diluted in normal saline to a total volume of 10 ml. A total of '2' ml of solution was administered during imaging. * Lot # [id number] of Definity utilized for procedure. * Expiration date 1 AUG 20. * The attending nurse who injected the contrast agent was RONNY SCOTT CPL, RN. Left Ventricle * The left ventricle is normal in size. * There is mild concentric left ventricular hypertrophy. * A full diastolic examination was done with clinical findings of Class I diastolic dysfunction. * Left ventricular systolic function is normal. * Ejection Fraction = 60-65%. * The left ventricular wall motion is normal. Right Ventricle * The right ventricle is normal in size and function. Atria * The left atrium is mildly dilated. * Right atrial size is normal. * No ASD detected; PFO is not assessed. Mitral Valve * There is mild mitral annular calcification. * The mitral valve is grossly normal. * There is no mitral valve stenosis. * Significant mitral regurgitation is absent. Tricuspid Valve * The tricuspid valve is not well visualized, but is grossly normal. * There is no tricuspid stenosis. * Significant tricuspid regurgitation is absent. Aortic Valve * The aortic valve is not well visualized. * Aortic stenosis is absent. * Aortic valve area was calculated at 2.3 cm\S\2 using the continuity equation. * No aortic regurgitation is present. Pulmonic Valve * The pulmonic valve is not well visualized. * The pulmonary valve is inadequately visualized, but the Doppler data is adequate for interpretation. * There is no significant pulmonary regurgitation. Great Vessels * The aortic root is normal size. Pericardium/Pleural * There is no pericardial effusion. Great Vessels * Normal inferior vena cava diameter and respiratory variation suggests normal central venous pressure. MMode 2D Measurements and Calculations IVSd 1.2 cm IVSs 1.7 cm LVIDd 4.3 cm LVIDs 2.9 cm LVPWd 1.2 cm LVPWs 1.4 cm IVS/LVPW 0.99 FS 32.5 % EDV(Teich) 81.7 ml ESV(Teich) 31.7 ml EF(Teich) 61.2 % EDV(cubed) 77.9 ml ESV(cubed) 24.0 ml EF(cubed) 69.2 % % IVS thick 45.0 % % LVPW thick 20.6 % LV mass(C)d 179.2 grams LV mass(C)dI 92.8 grams/m\S\2 LV mass(C)s 162.8 grams LV mass(C)sI 84.3 grams/m\S\2 SV(Teich) 50.0 ml SI(Teich) 25.9 ml/m\S\2 SV(cubed) 53.9 ml SI(cubed) 27.9 ml/m\S\2 Ao root diam 3.8 cm Ao root area 11.3 cm\S\2 LA dimension 4.1 cm LA/Ao 1.1 LVOT diam 2.0 cm LVOT area 3.0 cm\S\2 LVAs ap4 11.4 cm\S\2 LVLs ap4 4.6 cm ESV(MOD-sp4) 24.3 ml ESV(sp4-el) 24.4 ml Doppler Measurements and Calculations MV E max steve 73.3 cm/sec MV A max steve 100.8 cm/sec MV E/A 0.73 MV P1/2t max steve 83.0 cm/sec MV P1/2t 45.2 msec MVA(P1/2t) 4.9 cm\S\2 MV dec slope 537.9 cm/sec\S\2 MV dec time 0.23 sec Ao V2 max 126.3 cm/sec Ao max PG 6.4 mmHg Ao max PG (full) 2.8 mmHg HERNANDEZ(V,A) 2.3 cm\S\2 HERNANDEZ(V,D) 2.3 cm\S\2 LV V1 max PG 3.6 mmHg LV V1 max 94.9 cm/sec PA V2 max 128.3 cm/sec PA max PG 6.6 mmHg
--- NOTE | 2016-10-24 18:00 | Family Medicine Progress Note ---
Progress Note Date of Service Oct 24, 2016. Subjective Pt evaluation today including: conversation w/ patient, physical exam, chart review, lab review Pain: denies any pain Voiding: no voiding problems 76-year-old female with past medical history of asthma, cardiomyopathy, COPD, CHF, osteoporosis, C. difficile colitis presented with complaints of shortness of breath which started about a month ago with worsening about a week ago with mildly productive cough. Has been using BiPAP overnight and tolerating it well. Feels somewhat better today than breathing is somewhat improved. Denies any chest pain, palpitations, dizziness Constitutional: No chills, No fever Eyes: No worsening of vision ENT: No hearing loss, No unusual epistaxis Respiratory: + shortness of breath, + wheezing, No cough, No sputum Cardiovascular: No chest pain Breast: No breast lump Abdomen: No nausea, No pain, No vomiting Musculoskeletal: No joint pain Female : No dysuria Neurologic: No memory loss, No paralysis Psychiatric: No depression symptoms Medications Current Inpatient Medications Medications (Trade) Dose Ordered Sig/Olimpia Route Start Time Stop Time Status Last Admin Dose Admin Enoxaparin Sodium (Lovenox Inj) 40 mg Q24H SC 10/24/16 09:00 11/23/16 08:59 10/24/16 08:22 40 MG Acetaminophen (Tylenol Tab) 650 mg Q4H PRN PO 10/23/16 23:15 11/22/16 23:14 Al Hydrox/Mg Hydrox/Simethicone (Maalox Max Susp) 15 ml Q4H PRN PO 10/23/16 23:15 11/22/16 23:14 Magnesium Hydroxide (Milk Of Magnesia Susp) 30 ml Q12H PRN PO 10/23/16 23:15 11/22/16 23:14 Ondansetron HCl (Zofran Inj) 4 mg Q6H PRN IV 10/23/16 23:15 11/22/16 23:14 Polyethylene (Miralax Powder Packet) 17 gm DAILY PRN PO 10/23/16 23:15 11/22/16 23:14 Albuterol/ Ipratropium 3 ml 3 ml QIDR INH 10/24/16 08:00 11/23/16 07:59 10/24/16 16:00 3 ML Methylprednisolone Sodium Succinate/ Syringe (Solu-Medrol IV/ Syringe) 0.64 ml @ 1.5 mls/min BID IV 10/24/16 09:00 11/23/16 08:59 10/24/16 08:09 1.5 MLS/MIN Alprazolam (Xanax Tab) 0.5 mg Q12 PRN PO 10/23/16 23:30 11/22/16 23:29 Amitriptyline HCl (Elavil Tab) 100 mg HS PO 10/24/16 21:00 11/23/16 20:59 Aspirin (Ecotrin Tab) 81 mg DAILY PO 10/24/16 09:00 11/23/16 08:59 10/24/16 08:11 81 MG Baclofen (Lioresal Tab) 10 mg TID PRN PO 10/23/16 23:30 11/22/16 23:29 Clopidogrel Bisulfate (plAVix TAB) 75 mg DAILY PO 10/24/16 09:00 11/23/16 08:59 10/24/16 08:20 75 MG Diltiazem HCl (TIAzac CAP) 120 mg DAILY PO 10/24/16 09:00 11/23/16 08:59 10/24/16 08:11 120 MG Docusate Sodium (coLACE CAP) 100 mg BID PO 10/24/16 09:00 11/23/16 08:59 10/24/16 08:21 100 MG Furosemide (Lasix Tab) 120 mg DAILY PO 10/24/16 09:00 11/23/16 08:59 10/24/16 08:19 120 MG Nitroglycerin (Nitrostat Tab) 0.4 mg UD PRN [place] 10/23/16 23:30 11/22/16 23:29 Oxycodone HCl (Oxycontin Tab) 15 mg Q12 PO 10/24/16 09:00 11/07/16 08:59 10/24/16 09:06 15 MG Pantoprazole Sodium (Protonix Tab) 40 mg DAILY PO 10/24/16 09:00 11/23/16 08:59 10/24/16 08:10 40 MG Potassium Chloride (Klor-Con Tab) 60 meq TID PO 10/24/16 09:00 11/23/16 08:59 10/24/16 14:50 60 MEQ Roflumilast (Daliresp Tab) 500 mcg DAILY PO 10/24/16 09:00 11/23/16 08:59 10/24/16 08:13 500 MCG Simvastatin (Zocor Tab) 10 mg QPM PO 10/24/16 21:00 11/23/16 20:59 Topiramate (Topamax Tab) 100 mg DAILY PO 10/24/16 09:00 11/23/16 08:59 10/24/16 08:12 100 MG Triamcinolone Acetonide (Kenalog 0.1% Cream) 1 appln BID EXT 10/24/16 09:00 11/23/16 08:59 Acetaminophen/ Butalbital/ Caffeine (Fioricet Tab) 1 tab Q4 PRN PO 10/23/16 23:30 11/22/16 23:29 10/24/16 14:50 1 TAB Miscellaneous Information (Order Awaiting Action) 1 ea QS N/A 10/24/16 08:00 11/23/16 07:59 Miscellaneous Information (Order Awaiting Action) 1 ea QS N/A 10/24/16 08:00 11/23/16 07:59 HCTZ/Losartan Potassium (Hyzaar 50-12.5 Tab) 1 tab DAILY PO 10/24/16 09:00 11/23/16 08:59 10/24/16 08:11 1 TAB Losartan Potassium (coZAAR TAB) 50 mg DAILY PO 10/24/16 09:00 11/23/16 08:59 10/24/16 08:13 50 MG Levalbuterol (Xopenex 1.25MG/ 3ML Neb) 1.25 mg Q6R PRN INH 10/24/16 08:45 11/23/16 08:44 Objective Vital Signs Date Time Temp Pulse Resp B/P Pulse Ox O2 Delivery O2 Flow Rate FiO2 10/24/16 16:26 83 20 98 Nasal Cannula 4.0 10/24/16 16:00 Nasal Cannula 4.0 10/24/16 15:21 36.7 91 16 130/74 97 10/24/16 12:00 Nasal Cannula 4.0 10/24/16 11:19 36.4 110 19 144/81 97 Room Air 10/24/16 11:11 109 20 98 Nasal Cannula 4.0 10/24/16 08:30 36.8 104 18 144/70 97 Nasal Cannula 4.0 10/24/16 08:00 98 Nasal Cannula 4.0 10/24/16 07:36 110 20 98 Nasal Cannula 4.0 10/24/16 04:00 36.8 88 16 141/82 98 CPAP 10/24/16 04:00 97 Nasal Cannula 4.0 10/24/16 00:15 37.0 97 20 178/81 97 Nasal Cannula 4.0 10/23/16 23:53 76 18 128/70 97 10/23/16 22:13 73 16 134/81 100 Nebulizer 10.0 10/23/16 20:44 93 10/23/16 20:34 99 Nasal Cannula 4.0 10/23/16 20:21 96 Nasal Cannula 4.0 10/23/16 20:17 36.7 95 20 142/76 96 Nasal Cannula 4.0 Physical Exam General Appearance: WD/WN, no apparent distress Eyes: normal inspection ENT: normal ENT inspection, hearing grossly normal Neck: supple Respiratory/Chest: chest non-tender, + decreased breath sounds Cardiovascular: regular rate, rhythm, no edema Abdomen: normal bowel sounds, non tender, soft, + distended (mildly) Extremities: no pedal edema Neurologic/Psychiatric: alert, normal mood/affect, oriented x 3 Skin: normal color Laboratory Results 10/24/16 06:18 10/24/16 06:18 Test 10/23/16 21:20 10/23/16 21:25 10/24/16 06:18 10/24/16 14:20 Immature Granulocyte % (Auto) 0.2 % White Blood Count 8.82 K/uL (4.8-10.8) Red Blood Count 4.50 M/uL (4.2-5.4) 4.58 M/uL (4.2-5.4) Hemoglobin 12.1 g/dL (12.0-16.0) Hematocrit 38.5 % (37-47) Mean Corpuscular Volume 85.6 fL (80-100) 84.7 fL (80-100) Mean Corpuscular Hemoglobin 26.9 pg (25-34) 26.6 pg (25-34) Mean Corpuscular Hemoglobin Concent 31.4 g/dl (32-36) 31.4 g/dl (32-36) Platelet Count 329 K/uL (130-400) Mean Platelet Volume 9.0 fL (7.4-10.4) 8.9 fL (7.4-10.4) Neutrophils (%) (Auto) 76.8 % Lymphocytes (%) (Auto) 12.6 % Monocytes (%) (Auto) 6.3 % Eosinophils (%) (Auto) 3.6 % Basophils (%) (Auto) 0.5 % Neutrophils # (Auto) 6.77 K/uL (1.4-6.5) Lymphocytes # (Auto) 1.11 K/uL (1.2-3.4) Monocytes # (Auto) 0.56 K/uL (0.11-0.59) Eosinophils # (Auto) 0.32 K/uL (0-0.5) Basophils # (Auto) 0.04 K/uL (0-0.2) Immature Granulocyte # (Auto) 0.02 K/uL (0.00-0.02) Total Bilirubin 0.2 mg/dl (0.2-1) Direct Bilirubin < 0.1 mg/dl (0-0.2) Aspartate Amino Transf (AST/SGOT) 11 U/L (15-37) Alanine Aminotransferase (ALT/SGPT) 22 U/L (12-78) Alkaline Phosphatase 99 U/L (45-117) Total Protein 6.8 gm/dl (6.4-8.2) Albumin 3.4 gm/dl (3.4-5.0) Lipase 88 U/L (73-393) Bedside Troponin I 0.000 ng/ml (0-0.045) IX-[id number]-Type Natriuretic Peptide 178 pg/ml (0-900) RDW Standard Deviation 41.9 fL (36.4-46.3) RDW Coefficient of Variation 13.7 % (11.5-14.5) Prothrombin Time 11.2 SECONDS (9.0-12.0) Prothromb Time International Ratio 1.0 (0.9-1.1) Anion Gap 9.0 mmol/L (3-11) Est Creatinine Clear Calc Drug Dose 83.5 ml/min Estimated GFR () 101.9 Estimated GFR (Non- 87.9 BUN/Creatinine Ratio 22.9 (10-20) Calcium Level 8.8 mg/dl (8.5-10.1) Troponin I < 0.015 ng/ml (0-0.045) Influenza Type A Antigen Neg for Influ A (NEG) Influenza Type B Antigen Neg for Influ B (NEG) Assessment and Plan 76-year-old female with past medical history of asthma, cardiomyopathy, COPD, CHF, osteoporosis, C. difficile colitis presented with complaints of shortness of breath which started about a month ago with worsening about a week ago with mildly productive cough. Acute on chronic COPD Exacerbation - DuoNeb's every 4 hours daily, and every 2 hours for shortness of breath or wheezing - 40 mg Solu-Medrol BID - Echocardiogram ordered for potential pulmonary hypertension -Pulmonology consultation- appreciate input - CT chest ordered Congestive heart failure - Continue Lasix 120 mg daily with 20 mEq potassium supplementation - Daily I/O, weight Coronary artery disease - Continue aspirin, Plavix, simvastatin - Patient has an allergy to metoprolol; continue diltiazem - Troponins trended and negative so far Hypertension - Continue Hyzaar Chronic Back Pain - Secondary to vertebral flat fracture - Continue Flexeril - Continue oxycodone Anxiety - Continue Xanax Constipation - Continue Colace, milk of magnesium and MiraLAX DVT prophylaxis - SCDs to the knee - Lovenox 40 mg daily Disposition - Telemetry - OT and PT CPR but no mechanical ventilation Resident Physician Supervision Note: I interviewed and examined the patient. Discussed with Dr. Austin and agree with findings and plan as documented in the note. Any exceptions or clarifications are listed here: Upon my examination this afternoon, the patient noted increase ease in breathing compared to admission. Pulmonary note reviewed and appreciated. Documented By: Evaristo Rojas Documented By: Evaristo Rojas Resident Tracking Resident Involvement: Resident Care Provided Care Provided: Adult Hospital Medicine
[2016-10-24] MEDS: ACETAMINOPHEN 325 MG TAB PO PRN (18:04)
[2016-10-24] MEDS: SIMVASTATIN 10 MG TAB PO SCH (20:21)
[2016-10-24] MEDS: AMITRIPTYLINE HCL 100 MG TAB PO SCH (20:21)
[2016-10-25] VITALS (11 sets, daily range): BP systolic 106–138; BP diastolic 68–82; PULSE 77–92; TEMP 36.5–36.8; O2SAT 77–98
[2016-10-25 05:53] LABS: HEMATOCRIT 37.7 % (37-47); MEAN CELL VOLUME 84.2 fL (80-100); MEAN CORPUSCULAR HEMOGLOBIN 26.6 pg (25-34); MEAN CORPUSCULAR HGB CONC 31.6 g/dl (32-36); MEAN PLATELET VOLUME 9.1 fL (7.4-10.4); PLATELET COUNT 355 K/uL (130-400); RED BLOOD COUNT 4.48 M/uL (4.2-5.4); WHITE BLOOD COUNT 12.96 K/uL (4.8-10.8)
[2016-10-25 06:37] LABS: BUN/CREATININE RATIO 27.7 (10-20); CALCIUM 9.2 mg/dl (8.5-10.1); CREATININE 0.7 mg/dl (0.60-1.20); POTASSIUM 4.6 mmol/L (3.5-5.1)
--- NOTE | 2016-10-25 07:08 | Clinical Documentation Query ---
CLINICAL DOCUMENTATION QUERY 76 year old female with a history of COPD who presents to the Emergency Room with complaints of persistent shortness of breath. Pulmonology is stating, "place patient on volume restriction as she is showing bilateral lower extremity 2+ edema and B-lines about midway of the thorax via ultrasound. We'll monitor patient over the next 24 hours but try to diurese 0.5-1 L over the next 24 hours." In your clinical opinion is this patient being managed for: ( ) Acute on Chronic Diastolic (Preserved EF) CHF ( ) Chronic diastolic (Preserved EF) CHF ( ) Other explanation of clinical findings (Please Explain) ( ) Unable to determine (Please Define) ( ) Need to Discuss ( ) Not Agree The medical record reflects the following clinical findings, treatment, and risk factors. Clinical Indicators: As above. Echo showed EF of 60-65%, left ventricular hypertrophy, with class I diastolic dysfunction. Treatment: Lasix, I/O's, daily weights, fluid restriction, with diuresis goal of 0.5-1L, Echo Risk Factors: Age, hx of CHF, COPD, Please clarify and document your clinical opinion in the progress notes and discharge summary. Terms such as "probable", "suspected", "likely", "questionable", "possible", or "still to be ruled out" are acceptable. IF IN AGREEMENT, YOU MUST DOCUMENT ABOVE DIAGNOSTIC STATEMENT IN DAILY PROGRESS NOTES AND DISCHARGE SUMMARY. This document is not part of the patient's record. Thank You, Jude Fairbanks, THERESE [phone]
--- NOTE | 2016-10-25 07:11 | Clinical Documentation Query ---
CLINICAL DOCUMENTATION QUERY 76 year old female with a history of COPD who presents to the Emergency Room with complaints of persistent shortness of breath. Pulmonology is stating, "place patient on volume restriction as she is showing bilateral lower extremity 2+ edema and B-lines about midway of the thorax via ultrasound. We'll monitor patient over the next 24 hours but try to diurese 0.5-1 L over the next 24 hours." In your clinical opinion is this patient being managed for: ( ) Acute on Chronic Diastolic (Preserved EF) CHF ( ) Chronic diastolic (Preserved EF) CHF ( ) Other explanation of clinical findings (Please Explain) ( ) Unable to determine (Please Define) ( ) Need to Discuss ( X) Not Agree The medical record reflects the following clinical findings, treatment, and risk factors. Clinical Indicators: As above. Echo showed EF of 60-65%, left ventricular hypertrophy, with class I diastolic dysfunction. Treatment: Lasix, I/O's, daily weights, fluid restriction, with diuresis goal of 0.5-1L, Echo Risk Factors: Age, hx of CHF, COPD, Please clarify and document your clinical opinion in the progress notes and discharge summary. Terms such as "probable", "suspected", "likely", "questionable", "possible", or "still to be ruled out" are acceptable. IF IN AGREEMENT, YOU MUST DOCUMENT ABOVE DIAGNOSTIC STATEMENT IN DAILY PROGRESS NOTES AND DISCHARGE SUMMARY. This document is not part of the patient's record. Thank You, Jude Fairbanks, RN [phone]
[2016-10-25] MEDS: ALBUT/IPRATROP 3MG/0.5MG NEB 3 ML VIAL INH SCH ×5 (07:19→19:59)
[2016-10-25] MEDS: CLOPIDOGREL BISULFATE 75 MG TAB PO SCH (09:25)
[2016-10-25] MEDS: TRIAMCINOLONE ACET 0.1% CR 15 GM TUBE EXT SCH ×2 (09:25→21:00)
[2016-10-25] MEDS: METHYLPREDNISOLONE IV 40 MG in SYRINGE 0 ML IV SCH ×2 (09:25→21:28)
[2016-10-25] MEDS: ASPIRIN 81 MG ECTAB PO SCH (09:25)
[2016-10-25] MEDS: PANTOprazole SOD 40 MG TAB PO SCH (09:26)
[2016-10-25] MEDS: ROFLUMILAST 500 MCG TAB PO SCH (09:26)
[2016-10-25] MEDS: DOCUSATE SODIUM 100 MG CAP PO SCH ×2 (09:26→21:26)
[2016-10-25] MEDS: TOPIRAMATE 100 MG TAB PO SCH (09:26)
[2016-10-25] MEDS: LOSARTAN/HCTZ 50-12.5 EA TAB PO SCH (09:27)
[2016-10-25] MEDS: FUROSEMIDE 40 MG TAB PO SCH (09:27)
[2016-10-25] MEDS: LOSARTAN POTASSIUM 50 MG TAB PO SCH (09:27)
[2016-10-25] MEDS: POTASSIUM CHLORIDE 20 MEQ TABCR PO SCH ×3 (09:28→21:27)
[2016-10-25] MEDS: DILTIAZEM HCL 120 MG EXT REL CAP PO SCH (09:28)
[2016-10-25] MEDS: ENOXAPARIN 40 MG/0.4 ML SYR SC SCH (09:29)
[2016-10-25] MEDS: POLYETHYLENE (MIRALAX) 17 GM PACK PO PRN (09:33)
[2016-10-25] MEDS: OXYCODONE HCL 15 MG TABCR (OXYCONTIN) PO SCH ×2 (09:34→21:25)
--- NOTE | 2016-10-25 12:24 | PROGRESS NOTE ---
DATE: 10/25/2016 PROBLEM LIST: 1. Severe COPD. 2. Chronic atelectasis. 3. Dyspnea. SUBJECTIVE: The patient reports she is feeling much better today, not quite short of breath. No significant chest heaviness or tightness. She still does have little bit of cough. The cough is nonproductive. She has not noticed any wheezing. No significant shortness of breath on exertion. She is still using her oxygen and still using BiPAP. She has been diuresing quite a bit. No chest pain. She does complain a little bit of left-sided flank/abdominal pain. She states it is in the area where she had shingles previously. She has no swelling in her extremities. No other complaints at this time. OBJECTIVE: GENERAL: The patient is a 76-year-old female in no acute distress. She is alert and oriented x3. Mood is good. Affect is good. VITAL SIGNS: Temp 36.8, pulse 84, respirations 16, blood pressure 137/78, pulse ox 93% on 2 liters. HEENT: Normocephalic, atraumatic. Pupils equal, round and reactive to light and accommodation. Extraocular movements are intact. [place] moist gingival and buccal mucosae. NECK: Short and thick. No mass. No adenopathy. No JVD. No thyromegaly. No bruit. CHEST: The patient has diminished breath sounds bilaterally. She does have few coarse wheezes. No rales noted. CARDIOVASCULAR: Regular rate and rhythm. No murmurs, gallops or rub. Normal S1, S2. ABDOMEN: Bowel sounds present. Abdomen is soft and nontender. No guarding, rigidity or organomegaly. EXTREMITIES: At most +1 edema, no erythema, no tenderness. No cyanosis or clubbing noted. NEUROLOGIC: Cranial nerves II-XII are intact. No focal deficit noted. LABORATORY DATA: Shows a white count of 12,000, H\T\H of 11.9 and 37.7, platelet count 355,000. BUN 19, creatinine 0.7, potassium is 4.6. Influenza A and B are negative. Abdominal x-ray shows no evidence of constipation. No evidence of stool retention. No other abnormality. CT of the chest shows moderate emphysema, stable T4 compression fracture which is old, dating back at least to 2016. IMPRESSION: This is a 76-year-old female with fairly severe chronic obstructive pulmonary disease at this time. She is currently on Solu-Medrol 40 b.i.d., I would continue that for another 24 hours with the possibility of transitioning her over to oral prednisone tomorrow. I think that some of what is happening can be attributed to is general overall decline in her pulmonary function. This was discussed with her as well. At this point, continue her current meds as they are. Continue aggressive pulmonary toilet. I did discuss the possibility of doing chest percussion, but patient does not feel that there is much mucous there, and with her thoracic compression fracture I would be concerned that this may cause more discomfort than anything else. For now, just continue to monitor. If patient continues to do well, she should be ready from a pulmonary aspect to be discharged within the next 24-48 hours. Patient's case reviewed and plan agreed upon. GARY
--- NOTE | 2016-10-25 13:15 | Family Medicine Progress Note ---
Progress Note Date of Service Oct 25, 2016. Subjective Pt evaluation today including: conversation w/ patient, physical exam Pain: well-controlled PO Intake: good Voiding: no voiding problems 76-year-old female with past medical history of asthma, cardiomyopathy, COPD, CHF, osteoporosis, C. difficile colitis presented with complaints of shortness of breath which started about a month ago with worsening about a week ago with mildly productive cough. Has been using BiPAP overnight and tolerating it well. Feels better. Has been getting breathing treatments which seem to be helping with her symptoms. Denies any chest pain, palpitations. Constitutional: No chills, No fever Eyes: No worsening of vision ENT: No hearing loss Respiratory: + shortness of breath, No cough, No sputum Cardiovascular: No chest pain Abdomen: No diarrhea, No nausea, No pain, No vomiting Musculoskeletal: No joint pain Female : No dysuria Psychiatric: No depression symptoms Medications Current Inpatient Medications Medications (Trade) Dose Ordered Sig/Olimpia Route Start Time Stop Time Status Last Admin Dose Admin Enoxaparin Sodium (Lovenox Inj) 40 mg Q24H SC 10/24/16 09:00 11/23/16 08:59 10/25/16 09:29 40 MG Acetaminophen (Tylenol Tab) 650 mg Q4H PRN PO 10/23/16 23:15 11/22/16 23:14 10/24/16 18:04 650 MG Al Hydrox/Mg Hydrox/Simethicone (Maalox Max Susp) 15 ml Q4H PRN PO 10/23/16 23:15 11/22/16 23:14 Magnesium Hydroxide (Milk Of Magnesia Susp) 30 ml Q12H PRN PO 10/23/16 23:15 11/22/16 23:14 Ondansetron HCl (Zofran Inj) 4 mg Q6H PRN IV 10/23/16 23:15 11/22/16 23:14 Polyethylene (Miralax Powder Packet) 17 gm DAILY PRN PO 10/23/16 23:15 11/22/16 23:14 10/25/16 09:33 17 GM Albuterol/ Ipratropium 3 ml 3 ml QIDR INH 10/24/16 08:00 11/23/16 07:59 10/24/16 12:00 3 ML Methylprednisolone Sodium Succinate/ Syringe (Solu-Medrol IV/ Syringe) 0.64 ml @ 1.5 mls/min BID IV 10/24/16 09:00 11/23/16 08:59 10/25/16 09:25 1.5 MLS/MIN Alprazolam (Xanax Tab) 0.5 mg Q12 PRN PO 10/23/16 23:30 11/22/16 23:29 Amitriptyline HCl (Elavil Tab) 100 mg HS PO 10/24/16 21:00 11/23/16 20:59 10/24/16 20:21 100 MG Aspirin (Ecotrin Tab) 81 mg DAILY PO 10/24/16 09:00 11/23/16 08:59 10/25/16 09:25 81 MG Baclofen (Lioresal Tab) 10 mg TID PRN PO 10/23/16 23:30 11/22/16 23:29 Clopidogrel Bisulfate (plAVix TAB) 75 mg DAILY PO 10/24/16 09:00 11/23/16 08:59 10/25/16 09:25 75 MG Diltiazem HCl (TIAzac CAP) 120 mg DAILY PO 10/24/16 09:00 11/23/16 08:59 10/25/16 09:28 120 MG Docusate Sodium (coLACE CAP) 100 mg BID PO 10/24/16 09:00 11/23/16 08:59 10/25/16 09:26 100 MG Furosemide (Lasix Tab) 120 mg DAILY PO 10/24/16 09:00 11/23/16 08:59 10/25/16 09:27 120 MG Nitroglycerin (Nitrostat Tab) 0.4 mg UD PRN [place] 10/23/16 23:30 11/22/16 23:29 Oxycodone HCl (Oxycontin Tab) 15 mg Q12 PO 10/24/16 09:00 11/07/16 08:59 10/25/16 09:34 15 MG Pantoprazole Sodium (Protonix Tab) 40 mg DAILY PO 10/24/16 09:00 11/23/16 08:59 10/25/16 09:26 40 MG Potassium Chloride (Klor-Con Tab) 60 meq TID PO 10/24/16 09:00 11/23/16 08:59 10/25/16 14:00 60 MEQ Roflumilast (Daliresp Tab) 500 mcg DAILY PO 10/24/16 09:00 11/23/16 08:59 10/25/16 09:26 500 MCG Simvastatin (Zocor Tab) 10 mg QPM PO 10/24/16 21:00 11/23/16 20:59 10/24/16 20:21 10 MG Topiramate (Topamax Tab) 100 mg DAILY PO 10/24/16 09:00 11/23/16 08:59 10/25/16 09:26 100 MG Triamcinolone Acetonide (Kenalog 0.1% Cream) 1 appln BID EXT 10/24/16 09:00 11/23/16 08:59 10/25/16 09:25 1 APPLN Acetaminophen/ Butalbital/ Caffeine (Fioricet Tab) 1 tab Q4 PRN PO 10/23/16 23:30 11/22/16 23:29 10/24/16 19:14 1 TAB Miscellaneous Information (Order Awaiting Action) 1 ea QS N/A 10/24/16 08:00 11/23/16 07:59 Miscellaneous Information (Order Awaiting Action) 1 ea QS N/A 10/24/16 08:00 11/23/16 07:59 HCTZ/Losartan Potassium (Hyzaar 50-12.5 Tab) 1 tab DAILY PO 10/24/16 09:00 11/23/16 08:59 10/25/16 09:27 1 TAB Losartan Potassium (coZAAR TAB) 50 mg DAILY PO 10/24/16 09:00 11/23/16 08:59 10/25/16 09:27 50 MG Levalbuterol (Xopenex 1.25MG/ 3ML Neb) 1.25 mg Q6R PRN INH 10/24/16 08:45 11/23/16 08:44 Objective Vital Signs Date Time Temp Pulse Resp B/P Pulse Ox O2 Delivery O2 Flow Rate FiO2 10/25/16 12:40 92 20 93 Nasal Cannula 4.0 10/25/16 12:00 Room Air 2.0 10/25/16 11:11 36.8 84 16 137/78 93 Nasal Cannula 5.5 10/25/16 08:00 Room Air 2.0 10/25/16 07:45 36.7 88 18 138/82 93 Room Air 10/25/16 07:19 77 20 91 Nasal Cannula 4.0 10/25/16 04:22 36.6 85 16 115/70 98 Mask 4.0 10/25/16 04:00 Nasal Cannula 2.0 CPAP 10/25/16 00:14 36.7 81 20 122/71 96 BiPAP 2.0 10/25/16 00:00 Nasal Cannula 2.0 CPAP 10/24/16 20:00 Nasal Cannula 2.0 CPAP 10/24/16 19:48 71 20 90 Nasal Cannula 4.0 10/24/16 19:46 37.0 86 20 139/80 99 Nasal Cannula 10/24/16 16:26 83 20 98 Nasal Cannula 4.0 10/24/16 16:00 Nasal Cannula 4.0 10/24/16 15:21 36.7 91 16 130/74 97 Physical Exam General Appearance: WD/WN, no apparent distress Eyes: normal inspection ENT: normal ENT inspection, hearing grossly normal Neck: supple Respiratory/Chest: chest non-tender, normal breath sounds, no respiratory distress, no accessory muscle use, + wheezing (scattered) Cardiovascular: regular rate, rhythm, no edema Abdomen: soft, no organomegaly Extremities: + pedal edema, + pertinent finding (right lower extremity swelling which is chronic) Neurologic/Psychiatric: alert, normal mood/affect, oriented x 3 Laboratory Results 10/25/16 05:35 10/25/16 05:35 Test 10/25/16 05:35 Red Blood Count 4.48 M/uL (4.2-5.4) Mean Corpuscular Volume 84.2 fL (80-100) Mean Corpuscular Hemoglobin 26.6 pg (25-34) Mean Corpuscular Hemoglobin Concent 31.6 g/dl (32-36) RDW Standard Deviation 41.6 fL (36.4-46.3) RDW Coefficient of Variation 13.6 % (11.5-14.5) Mean Platelet Volume 9.1 fL (7.4-10.4) Anion Gap 4.0 mmol/L (3-11) Est Creatinine Clear Calc Drug Dose 76.4 ml/min Estimated GFR () 98.9 Estimated GFR (Non- 85.4 BUN/Creatinine Ratio 27.7 (10-20) Calcium Level 9.2 mg/dl (8.5-10.1) Assessment and Plan 76-year-old female with past medical history of asthma, cardiomyopathy, COPD, CHF, osteoporosis, C. difficile colitis presented with complaints of shortness of breath which started about a month ago with worsening about a week ago with mildly productive cough. Is currently on BiPAP overnight. Acute on chronic COPD Exacerbation - DuoNeb's every 4 hours daily, and every 2 hours for shortness of breath or wheezing - 40 mg Solu-Medrol BID- will transition to PO steroids tomorrow - Echocardiogram : * Normal biventricular systolic function. * Mild concentric left ventricular hypertrophy. * Left ventricular diastolic dysfunction. * Mild left atrial dilatation. * No significant valvular abnormalities. - CT chest: 1. No acute intrathoracic findings. 2. Moderate emphysema. 3. No thoracic lymphadenopathy. 4. Severe T4 compression fracture which is old. Vertebral body height loss has significantly increased since CT of May 13, 2016. Healing fracture through the spinous process of the T4 vertebra. Congestive heart failure - Continue Lasix 120 mg daily with 20 mEq potassium supplementation - Daily I/O, weight Coronary artery disease - Continue aspirin, Plavix, simvastatin - Patient has an allergy to metoprolol; continue diltiazem - Troponins trended and negative Hypertension - Continue Hyzaar Chronic Back Pain - Secondary to vertebral flat fracture - Continue Flexeril - Continue oxycodone Anxiety - Continue Xanax Constipation - Continue Colace, milk of magnesium and MiraLAX DVT prophylaxis - SCDs to the knee - Lovenox 40 mg daily Disposition - Telemetry - OT and PT CPR but no mechanical ventilation Resident Physician Supervision Note: I was present with Dr. Austin during the history and exam. I discussed the case with the resident and agree with the findings and plan as documented in the note. Any exceptions or clarifications are listed here: Subtle improvement compared to yesterday. Will continue IV solumedrol and hopefully transition to PO steroids in the AM. Documented By: Evaristo Rojas Resident Tracking Resident Involvement: Resident Care Provided (he he) Care Provided: Adult Hospital Medicine
[2016-10-25] MEDS: AMITRIPTYLINE HCL 100 MG TAB PO SCH (21:26)
[2016-10-25] MEDS: SIMVASTATIN 10 MG TAB PO SCH (21:26)
[2016-10-25] MEDS: BUTALBITAL/ACETAMIN/CAFFEINE TAB PO PRN (21:33)
[2016-10-26] VITALS (10 sets, daily range): BP systolic 94–141; BP diastolic 52–79; PULSE 70–103; TEMP 36.3–36.8; O2SAT 92–99
[2016-10-26 05:34] LABS: HEMATOCRIT 39.7 % (37-47); MEAN CELL VOLUME 84.5 fL (80-100); MEAN CORPUSCULAR HEMOGLOBIN 26.2 pg (25-34); PLATELET COUNT 369 K/uL (130-400); WHITE BLOOD COUNT 11.72 K/uL (4.8-10.8)
[2016-10-26] MEDS: ALBUT/IPRATROP 3MG/0.5MG NEB 3 ML VIAL INH SCH ×3 (05:50→15:46)
[2016-10-26 06:17] LABS: BUN/CREATININE RATIO 29.5 (10-20); CALCIUM 8.8 mg/dl (8.5-10.1); CREATININE 0.77 mg/dl (0.60-1.20); POTASSIUM 4.8 mmol/L (3.5-5.1)
[2016-10-26] MEDS: METHYLPREDNISOLONE IV 40 MG in SYRINGE 0 ML IV SCH ×2 (07:41→20:21)
[2016-10-26] MEDS: ASPIRIN 81 MG ECTAB PO SCH (07:41)
[2016-10-26] MEDS: ROFLUMILAST 500 MCG TAB PO SCH (07:42)
[2016-10-26] MEDS: LOSARTAN POTASSIUM 50 MG TAB PO SCH (07:43)
[2016-10-26] MEDS: OXYCODONE HCL 15 MG TABCR (OXYCONTIN) PO SCH ×2 (07:43→20:33)
[2016-10-26] MEDS: TOPIRAMATE 100 MG TAB PO SCH (07:43)
[2016-10-26] MEDS: DILTIAZEM HCL 120 MG EXT REL CAP PO SCH (07:44)
[2016-10-26] MEDS: CLOPIDOGREL BISULFATE 75 MG TAB PO SCH (07:44)
[2016-10-26] MEDS: POTASSIUM CHLORIDE 20 MEQ TABCR PO SCH ×3 (07:44→20:24)
[2016-10-26] MEDS: PANTOprazole SOD 40 MG TAB PO SCH (07:45)
[2016-10-26] MEDS: LOSARTAN/HCTZ 50-12.5 EA TAB PO SCH (07:45)
[2016-10-26] MEDS: FUROSEMIDE 40 MG TAB PO SCH (07:45)
[2016-10-26] MEDS: ENOXAPARIN 40 MG/0.4 ML SYR SC SCH (07:47)
[2016-10-26] MEDS: TRIAMCINOLONE ACET 0.1% CR 15 GM TUBE EXT SCH ×2 (07:47→20:22)
[2016-10-26] MEDS: DOCUSATE SODIUM 100 MG CAP PO SCH ×2 (08:19→20:25)
[2016-10-26] MEDS ORDERED: NURSING VERBAL MED ORDER ONE (14:00)
--- NOTE | 2016-10-26 18:18 | Family Medicine Progress Note ---
Progress Note Date of Service Oct 26, 2016. Subjective Pt evaluation today including: conversation w/ patient, physical exam, chart review, lab review Pain: denies pain PO Intake: good Voiding: no voiding problems Constitutional: No chills, No fever Eyes: No worsening of vision ENT: No hearing loss Respiratory: + shortness of breath, No cough Cardiovascular: No chest pain Abdomen: + constipation, No nausea, No pain Musculoskeletal: No joint pain Female : No dysuria Neurologic: No memory loss Medications Current Inpatient Medications Medications (Trade) Dose Ordered Sig/Olimpia Route Start Time Stop Time Status Last Admin Dose Admin Enoxaparin Sodium (Lovenox Inj) 40 mg Q24H SC 10/24/16 09:00 11/23/16 08:59 10/26/16 07:47 40 MG Acetaminophen (Tylenol Tab) 650 mg Q4H PRN PO 10/23/16 23:15 11/22/16 23:14 10/24/16 18:04 650 MG Al Hydrox/Mg Hydrox/Simethicone (Maalox Max Susp) 15 ml Q4H PRN PO 10/23/16 23:15 11/22/16 23:14 Magnesium Hydroxide (Milk Of Magnesia Susp) 30 ml Q12H PRN PO 10/23/16 23:15 11/22/16 23:14 Ondansetron HCl (Zofran Inj) 4 mg Q6H PRN IV 10/23/16 23:15 11/22/16 23:14 Polyethylene (Miralax Powder Packet) 17 gm DAILY PRN PO 10/23/16 23:15 11/22/16 23:14 10/25/16 09:33 17 GM Albuterol/ Ipratropium 3 ml 3 ml QIDR INH 10/24/16 08:00 11/23/16 07:59 10/26/16 15:46 3 ML Methylprednisolone Sodium Succinate/ Syringe (Solu-Medrol IV/ Syringe) 0.64 ml @ 1.5 mls/min BID IV 10/24/16 09:00 11/23/16 08:59 10/26/16 07:41 1.5 MLS/MIN Alprazolam (Xanax Tab) 0.5 mg Q12 PRN PO 10/23/16 23:30 11/22/16 23:29 10/25/16 21:25 0.5 MG Amitriptyline HCl (Elavil Tab) 100 mg HS PO 10/24/16 21:00 11/23/16 20:59 10/25/16 21:26 100 MG Aspirin (Ecotrin Tab) 81 mg DAILY PO 10/24/16 09:00 11/23/16 08:59 10/26/16 07:41 81 MG Baclofen (Lioresal Tab) 10 mg TID PRN PO 10/23/16 23:30 11/22/16 23:29 Clopidogrel Bisulfate (plAVix TAB) 75 mg DAILY PO 10/24/16 09:00 11/23/16 08:59 10/26/16 07:44 75 MG Diltiazem HCl (TIAzac CAP) 120 mg DAILY PO 10/24/16 09:00 11/23/16 08:59 10/26/16 07:44 120 MG Docusate Sodium (coLACE CAP) 100 mg BID PO 10/24/16 09:00 11/23/16 08:59 10/26/16 08:19 100 MG Furosemide (Lasix Tab) 120 mg DAILY PO 10/24/16 09:00 11/23/16 08:59 10/26/16 07:45 120 MG Nitroglycerin (Nitrostat Tab) 0.4 mg UD PRN UT 10/23/16 23:30 11/22/16 23:29 Oxycodone HCl (Oxycontin Tab) 15 mg Q12 PO 10/24/16 09:00 11/07/16 08:59 10/26/16 07:43 15 MG Pantoprazole Sodium (Protonix Tab) 40 mg DAILY PO 10/24/16 09:00 11/23/16 08:59 10/26/16 07:45 40 MG Potassium Chloride (Klor-Con Tab) 60 meq TID PO 10/24/16 09:00 11/23/16 08:59 10/26/16 07:44 60 MEQ Roflumilast (Daliresp Tab) 500 mcg DAILY PO 10/24/16 09:00 11/23/16 08:59 10/26/16 07:42 500 MCG Simvastatin (Zocor Tab) 10 mg QPM PO 10/24/16 21:00 11/23/16 20:59 10/25/16 21:26 10 MG Topiramate (Topamax Tab) 100 mg DAILY PO 10/24/16 09:00 11/23/16 08:59 10/26/16 07:43 100 MG Triamcinolone Acetonide (Kenalog 0.1% Cream) 1 appln BID EXT 10/24/16 09:00 11/23/16 08:59 10/26/16 07:47 1 APPLN Acetaminophen/ Butalbital/ Caffeine (Fioricet Tab) 1 tab Q4 PRN PO 10/23/16 23:30 11/22/16 23:29 10/25/16 21:33 1 TAB Miscellaneous Information (Order Awaiting Action) 1 ea QS N/A 10/24/16 08:00 11/23/16 07:59 Miscellaneous Information (Order Awaiting Action) 1 ea QS N/A 10/24/16 08:00 11/23/16 07:59 HCTZ/Losartan Potassium (Hyzaar 50-12.5 Tab) 1 tab DAILY PO 10/24/16 09:00 11/23/16 08:59 10/26/16 07:45 1 TAB Losartan Potassium (coZAAR TAB) 50 mg DAILY PO 10/24/16 09:00 11/23/16 08:59 10/26/16 07:43 50 MG Levalbuterol (Xopenex 1.25MG/ 3ML Neb) 1.25 mg Q6R PRN INH 10/24/16 08:45 11/23/16 08:44 Nystatin (Mycostatin Powder) 1 appln BID EXT 10/26/16 21:00 11/25/16 20:59 Objective Vital Signs Date Time Temp Pulse Resp B/P Pulse Ox O2 Delivery O2 Flow Rate FiO2 10/26/16 16:00 Nasal Cannula 4.0 10/26/16 15:47 79 18 92 Nasal Cannula 4.0 10/26/16 15:30 36.6 86 20 132/74 99 Nasal Cannula 4.0 10/26/16 12:00 Nasal Cannula 4.0 10/26/16 11:43 36.8 101 18 141/67 96 Nasal Cannula 4.0 10/26/16 10:48 103 18 99 Nasal Cannula 4.0 10/26/16 08:00 Room Air 4.0 10/26/16 07:18 36.3 74 16 94/52 95 BiPAP 4.0 10/26/16 05:50 89 18 95 Nasal Cannula 4.0 10/26/16 04:52 36.3 70 16 106/53 98 BiPAP 3.0 10/26/16 04:05 Nasal Cannula 4.0 10/26/16 00:05 Nasal Cannula 4.0 10/25/16 23:37 36.5 77 16 106/68 77 BiPAP 10/25/16 20:00 Nasal Cannula 4.0 10/25/16 19:59 84 18 93 Nasal Cannula 4.0 10/25/16 19:50 36.7 92 20 126/75 96 Nasal Cannula 4.0 Physical Exam General Appearance: WD/WN, no apparent distress Eyes: normal inspection ENT: normal ENT inspection, hearing grossly normal Neck: supple Respiratory/Chest: chest non-tender, + wheezing (scattered) Cardiovascular: regular rate, rhythm Abdomen: normal bowel sounds, non tender, soft Extremities: normal range of motion, non-tender, no pedal edema Neurologic/Psychiatric: alert, normal mood/affect, oriented x 3 Laboratory Results 10/26/16 05:21 10/26/16 05:21 Test 10/26/16 05:21 Red Blood Count 4.70 M/uL (4.2-5.4) Mean Corpuscular Volume 84.5 fL (80-100) Mean Corpuscular Hemoglobin 26.2 pg (25-34) Mean Corpuscular Hemoglobin Concent 31.0 g/dl (32-36) RDW Standard Deviation 41.7 fL (36.4-46.3) RDW Coefficient of Variation 13.7 % (11.5-14.5) Mean Platelet Volume 9.0 fL (7.4-10.4) Anion Gap 6.0 mmol/L (3-11) Est Creatinine Clear Calc Drug Dose 68.4 ml/min Estimated GFR () 88.2 Estimated GFR (Non- 76.1 BUN/Creatinine Ratio 29.5 (10-20) Calcium Level 8.8 mg/dl (8.5-10.1) Date/Time Source Procedure Growth Status 10/26/16 05:50 Stool C.difficile Toxin B Gene (PCR) - Final No C. difficile toxin B gene detected Complete Assessment and Plan 76-year-old female with past medical history of asthma, cardiomyopathy, COPD, CHF, osteoporosis, C. difficile colitis presented with complaints of shortness of breath which started about a month ago with worsening about a week ago with mildly productive cough. Is currently on BiPAP overnight. Had some LUQ abdominal pain in the morning which was relieved after a bowel movement later in the evening Acute on chronic COPD Exacerbation - DuoNeb's every 4 hours daily, and every 2 hours for shortness of breath or wheezing - 40 mg Solu-Medrol BID- - Echocardiogram : * Normal biventricular systolic function. * Mild concentric left ventricular hypertrophy. * Left ventricular diastolic dysfunction. * Mild left atrial dilatation. * No significant valvular abnormalities. - CT chest: 1. No acute intrathoracic findings. 2. Moderate emphysema. 3. No thoracic lymphadenopathy. 4. Severe T4 compression fracture which is old. Vertebral body height loss has significantly increased since CT of May 13, 2016. Healing fracture through the spinous process of the T4 vertebra. Congestive heart failure - Continue Lasix 120 mg daily with 20 mEq potassium supplementation - Daily I/O, weight Coronary artery disease - Continue aspirin, Plavix, simvastatin - Patient has an allergy to metoprolol; continue diltiazem - Troponins trended and negative Hypertension - Continue Hyzaar Chronic Back Pain - Secondary to vertebral flat fracture - Continue Flexeril - Continue oxycodone Anxiety - Continue Xanax Constipation - Continue Colace, milk of magnesium and MiraLAX DVT prophylaxis - SCDs to the knee - Lovenox 40 mg daily Disposition - Telemetry - OT and PT CPR but no mechanical ventilation Resident Physician Supervision Note: I was present with Dr. Austin during the history and exam. I discussed the case with the resident and agree with the findings and plan as documented in the note. Any exceptions or clarifications are listed here: Documented By: Evaristo Rojas Resident Tracking Resident Involvement: Resident Care Provided Care Provided: Adult Hospital Medicine
--- NOTE | 2016-10-26 19:57 | PROGRESS NOTE ---
DATE: 10/26/2016 PROBLEM LIST: Includes: 1. Severe chronic obstructive pulmonary disease. 2. Chronic atelectasis. 3. Dyspnea. SUBJECTIVE: The patient reports that she is actually feeling worse today. She states that she feels like she in not moving as much air and she is not sure what triggered it. She states that nothing has really changed that she is aware of. She is still using her BiPAP. She feels that she has to use it frequently; however, when I saw her, she was off her BiPAP. She is using her nebulizer and feels that is somewhat helpful. She is not having any significant coughing at this time. She is not having any wheezing. She states that her chest does feel tight. She has no chest pain or painful respirations. Also, she is feeling very depressed and frustrated. She knows that her breathing is not really getting any better and she realizes that it may not get better. She is also frustrated in that. She is tired of fighting. We did have a long conversation regarding this. She denies any other concerns or problems at this time. OBJECTIVE: GENERAL: The patient is a 76-year-old female, currently in no acute distress. She is able to complete sentences without significant respiratory difficulty. She is alert and oriented x3. Mood is good. Affect is good. VITAL SIGNS: Temp 36.6, pulse 86, respirations 20, blood pressure is 132/74 and pulse ox 98% on 4 liters. HEENT: Normocephalic and atraumatic. Pupils are equal, round and reactive to light and accommodation. Extraocular movements are intact. [place] moist gingival and buccal mucosa. NECK: Supple. No mass. No adenopathy. No bruit. CHEST: Diminished breath sounds. She does not have very good air movement. I do not appreciate any wheezing at this time; however, I am not sure her air movement is enough to elicit any wheezing. CARDIOVASCULAR: Regular rate and rhythm. No murmurs, gallops or rubs. ABDOMEN: Soft and nontender. No guarding, rigidity or organomegaly. EXTREMITIES: No erythema or edema. NEUROLOGIC: Cranial nerves II through XII are intact. There is no focal deficit. LABORATORY DATA: Shows a white count of 11,000, H\T\H of 12.3 and 39.7 and platelet count 369,000. She had a C. diff toxin done that was negative. No new imaging data. IMPRESSION: This is a 76-year-old female, who we follow in the office, who has fairly severe oxygen dependent chronic obstructive pulmonary disease. At this point, the patient's breathing is progressively worsening unfortunately. I think that some of her breathing difficulty is secondary to her anxiety and stress. We did have a long conversation regarding some of her responsibilities and things she needs to do. We also discussed whether she was tired of fighting or not. At this point, she states that she is tired of fighting. Although, I am not sure she is ready for hospice; I would like to broach this tomorrow with her as she was getting very anxious and upset. For now, I would like for the patient to continue transition to prednisone. I think that she will do fine with this. I think that another night in the hospital would be beneficial for her with potential discharge to home tomorrow. She seemed agreeable to this. I also recommend to continue aggressive pulmonary toilet. At some point, we may need to consider hospice or at least palliative and I would like to discuss this with her tomorrow in more detail. Of note, also she did bring up that she has a rash under her breast. I will also start her on some Nystatin powder as she has gotten yeast infections in the past. We will continue to follow through hospitalization. Patient reviewed and plan agreed with. GARY
[2016-10-26] MEDS: SIMVASTATIN 10 MG TAB PO SCH (20:24)
[2016-10-26] MEDS: AMITRIPTYLINE HCL 100 MG TAB PO SCH (20:25)
[2016-10-26] MEDS: ACETAMINOPHEN 325 MG TAB PO PRN (20:34)
[2016-10-26] MEDS: NYSTATIN POWDER 15GM BTL EXT SCH (20:34)
[2016-10-27 04:32] VITALS: BP 125/72; PULSE 82; TEMP 36.7; O2SAT 96
[2016-10-27 06:26] LABS: CREATININE 0.75 mg/dl (0.60-1.20)
[2016-10-27 07:20] VITALS: BP 126/78; PULSE 81; TEMP 36.4; O2SAT 98
[2016-10-27 07:24] VITALS: PULSE 82; O2SAT 96
[2016-10-27] MEDS: ALBUT/IPRATROP 3MG/0.5MG NEB 3 ML VIAL INH SCH ×2 (07:29→11:17)
[2016-10-27] MEDS: CLOPIDOGREL BISULFATE 75 MG TAB PO SCH (08:44)
[2016-10-27] MEDS: DOCUSATE SODIUM 100 MG CAP PO SCH (08:44)
[2016-10-27] MEDS: ASPIRIN 81 MG ECTAB PO SCH (08:45)
[2016-10-27] MEDS: PANTOprazole SOD 40 MG TAB PO SCH (08:45)
[2016-10-27] MEDS: ENOXAPARIN 40 MG/0.4 ML SYR SC SCH (08:45)
[2016-10-27] MEDS: TOPIRAMATE 100 MG TAB PO SCH (08:45)
[2016-10-27] MEDS: DILTIAZEM HCL 120 MG EXT REL CAP PO SCH (08:46)
[2016-10-27] MEDS: ROFLUMILAST 500 MCG TAB PO SCH (08:47)
[2016-10-27] MEDS: LOSARTAN POTASSIUM 50 MG TAB PO SCH (08:47)
[2016-10-27] MEDS: LOSARTAN/HCTZ 50-12.5 EA TAB PO SCH (08:47)
[2016-10-27] MEDS: POTASSIUM CHLORIDE 20 MEQ TABCR PO SCH (08:48)
[2016-10-27] MEDS: METHYLPREDNISOLONE IV 40 MG in SYRINGE 0 ML IV SCH (08:49)
[2016-10-27] MEDS: FUROSEMIDE 40 MG TAB PO SCH (08:49)
[2016-10-27] MEDS: TRIAMCINOLONE ACET 0.1% CR 15 GM TUBE EXT SCH (08:50)
[2016-10-27] MEDS: NYSTATIN POWDER 15GM BTL EXT SCH (08:50)
[2016-10-27] MEDS: OXYCODONE HCL 15 MG TABCR (OXYCONTIN) PO SCH (09:00)
[2016-10-27] MEDS: POLYETHYLENE (MIRALAX) 17 GM PACK PO PRN (09:08)
--- NOTE | 2016-10-27 10:07 | PULMONARY PROGRESS NOTE ---
DATE: 10/27/2016 PROBLEM LIST: Includes: 1. Severe chronic obstructive pulmonary disease. 2. Chronic atelectasis. 3. Dyspnea. SUBJECTIVE: The patient reports that she is about the same today. Overall, she feels that she may be a little bit better. She does feel that she is ready to go home. She is not having any significant coughing at this time. She is spending more time off the BiPAP. She is using her oxygen. She has not noted any wheezing. She has not had any fever or chills. She has not had any chest discomfort. No abdominal pain. No increased swelling in her extremities. OBJECTIVE: GENERAL: The patient is a 76-year-old female. She does not appear in any acute distress. She is alert and oriented x3. Mood is good. Affect is good. She is able to complete sentences. VITAL SIGNS: Temp 36.4, pulse 81, respiration 20, blood pressure is 126/78, pulse ox 98% on 4 liters. HEENT: Normocephalic, atraumatic. Pupils equal, round and reactive to light and accommodation. Extraocular movements are intact. [place] moist gingival and buccal mucosa. NECK: Short and thick. No mass. No adenopathy. No bruit. CHEST: Diminished breath sounds but I do not appreciate any wheezing today. There is no rale or rhonchi noted. CARDIOVASCULAR: Regular rate and rhythm. There are no murmurs, gallops or rubs at this time. ABDOMEN: Bowel sounds are present throughout. Abdomen soft, nontender. No guarding, rigidity or organomegaly. EXTREMITIES: +1 edema bilaterally. No tenderness at this time. No cyanosis, clubbing or edema. NEUROLOGIC: Cranial nerves II-XII are intact. There is no focal deficit noted. LABORATORY DATA: No new lab data. No new imaging data. IMPRESSION: This is a 76-year-old female with severe chronic obstructive pulmonary disease. At this time, she appears fairly close to her baseline. I think that she can be discharged to home. Would recommend to start at 40 mg of prednisone and keep her on for 5 days, then taper by 5 mg every 3-4 days. I would like her on the 35 mg until I see her in the office next Monday. I did contact the office and she is set up for 1:45 in the [place] office. Otherwise, she is to continue her pulmonary toilet as it is. She is to continue her routine nebulization and inhaler. Currently, she is not on any antibiotic, I do not feel that she needs it. I would like for her to restart her Daliresp now. Patient reviewed and plan agreed with. GARY
--- NOTE | 2016-10-27 10:27 | Discharge Instructions ---
Discharge Instructions Date of Service Oct 27, 2016. Admission Reason for Admission: Copd Exacerbation Discharge Discharge Diagnosis / Problem: COPD exacerbation Discharge Goals Goal(s): Improve function Activity Recommendations Activity Limitations: resume your previous activity . Instructions / Follow-Up Instructions / Follow-Up You were admitted for difficulty breathing and treated for COPD exacerbation. Recommendations : Acute on chronic COPD Exacerbation - Continue home inhalers and Daliresp along with your Oxygen - Use 40 mg Prednisone daily until this weekend and then use 35 mg until you see Gilmer Chandler on Monday Congestive heart failure - Continue Lasix 120 mg daily with 20 mEq potassium supplementation as scheduled Coronary artery disease - Continue aspirin, Plavix, simvastatin - Continue diltiazem Hypertension - Continue Hyzaar Chronic Back Pain - Continue Flexeril - Continue oxycodone Anxiety - Continue Xanax Constipation - Continue Colace, milk of magnesium and MiraLAX Please follow up with Gilmer Chandler as scheduled on Thursday 11/02 Current Hospital Diet Patient's current hospital diet: AHA Diet (Heart Healthy), Low Sodium Diet (2gm Na) Discharge Diet Recommended Diet: AHA Diet (Heart Healthy), Low Sodium Diet (2gm Na) Pending Studies Studies pending at discharge: no Medical Emergencies . Who to Call and When: Medical Emergencies: If at any time you feel your situation is an emergency, please call 911 immediately. . Non-Emergent Contact Non-Emergency issues call your: Primary Care Provider . . "Provider Documentation" section prepared by Chantell Austin. . VTE Core Measure Inpt VTE Proph given/why not?: Enoxaparin (Lovenox)SQ
--- NOTE | 2016-10-27 10:28 | Discharge Summary ---
Discharge Summary Date of Service Oct 27, 2016. (Chantell Austin MD) 10/27/2016 (Evaristo Rojas D.O.) Discharge Summary Admission Date: Oct 23, 2016 at 23:15 Discharge Date: Oct 27, 2016 Discharge Disposition: Home Principal Diagnosis: COPD exacerbation Immunizations: Have You Had Influenza Vaccine: No History of Tetanus Vaccine?: No Tetanus Immunization Date: Jun 07, 2003 History of Pneumococcal: Yes Pneumococcal Date: Jun 07, 2004 History of Hepatitis B Vaccine: No Consultations: Pulmonology (Chantell Austin MD) Medication Reconciliation New Medications: Prednisone Tab (Prednisone) 10 Mg Tab 10 MG PO DIRECTED, #24 TABS Use 4 tabs ( 4X10 mg )40 mg tabs for 3 days Use 3 tabs and half tab ( 3X 10 mg tabs and half tab) 35 mg for 3 days Continued Medications: Acetaminophen (Tylenol) 325 Mg Tab 650 MG PO Q4H PRN for Pain or Fever for 30 Days, #240 TAB Alprazolam (Xanax) 0.5 Mg Tab 0.5 MG PO Q12 PRN for Anxiety and/or Sedation, TAB Amitriptyline HCl (Amitriptyline HCl) 100 Mg Tab 100 MG PO HS Aspirin (Aspirin 81) 81 Mg Tab 81 MG PO DAILY Baclofen (Lioresal) 10 Mg Tab 10 MG PO TID PRN for spasms, TAB Aknsjncodg-Uhxgqilwacnrz-Suuqn (Fioricet) 1 Cap Cap 1 TAB PO Q4 PRN for headache Clopidogrel Bisulfate (Clopidogrel) 75 Mg Tab 75 MG PO DAILY Cyanocobalamin (Cyanocobalamin) 1,000 Mcg/Ml Inj 1 ML SC Diltiazem Hcl Extended Release (Diltiazem Hcl Er) 120 Mg Cap 120 MG PO DAILY Docusate Sodium (Docusate Sodium) 100 Mg Cap 10 MG PO BID, #60 CAP Fluticasone Furoate-Vilanterol (Breo Ellipta 200-25 Mcg/INH) 1 Inh Inh 1 INHA PO DAILY, #1 INHALER Furosemide (Lasix) 40 Mg Tab 120 MG PO DAILY, 0 Refills Hydrocortisone (Topical) (Hydrocortisone) 2.5 % Lot 1 APPLN TOP BID for 10 Days, #60 ML Ipratropium-Albuterol (Combivent Respimat) 1 Aer Aer 1 PUFFS INH QID, INH Ipratropium-Albuterol (Duoneb) 3 Ml Nebu 1 TREATMENT INH Q4H, INHA Losartan Potassium & Hydrochlo (Hyzaar) 1 Tab Tab 12.5-100 MG PO DAILY for 90 Days, TAB 3 Refills Nitroglycerin (Nitrostat) 0.4 Mg Sub 0.4 MG UT UD PRN for Chest Pain, BTL PLACE ONE TABLET UNDER THE TONGUE EVERY MINUTES FOR UP TO 3 DOSES IF NEEDED FOR CHEST PAIN. Oxycodone Hcl (Oxycontin) 15 Mg Tab 15 MG PO Q12, #60 Oxycodone HCl (Oxycodone HCl) 5 Mg Tab 5 MG PO Q3.5H PRN for Pain, #75 Oxygen (Oxygen) Gas 4 LITERS NA CONTINOUS Pantoprazole (Protonix) 40 Mg Tab 40 MG PO DAILY, TAB Potassium Ext Rel (Klor-Con) 20 Meq Tabcr 60 MEQ PO TID, TAB Roflumilast (Daliresp) 500 Mcg Tab 500 MCG PO DAILY, TAB 5 Refills Simvastatin (Zocor) 10 Mg Tab 10 MG PO QPM, 0 Refills Topiramate (Topamax) 100 Mg Tab 100 MG PO DAILY, TAB Triamcinolone Acet (Aristocort 0.1%) 90 Appln/30 Gm Cr 1 APPLN TOP BID APPLY SPARINGLY TO AFFECTED AREA(S). Umeclidinium [place] (Incruse Ellipta) 62.5 Mcg/Inh Inh 1 INHA PO DAILY for 30 Days, #1 INHALER Discontinued Medications: Prednisone Tab (Prednisone) 10 Mg Tab 10 MG PO QAM, TAB Discharge Exam Feeling better.denies any chest pain, fevers chills, palpitations. Review of Systems: Constitutional: No chills, No fever Eyes: No worsening of vision ENT: No hearing loss Respiratory: No cough, No sputum Cardiovascular: No chest pain Abdomen: No nausea, No pain, No vomiting Genitourinary - Female: No dysuria Neurologic: No memory loss, No paralysis Physical Exam: General Appearance: WD/WN, no apparent distress Eyes: normal inspection ENT: normal ENT inspection, hearing grossly normal Neck: supple Respiratory/Chest: chest non-tender, no respiratory distress, no accessory muscle use, + wheezing (scattered) Cardiovascular: regular rate, rhythm Abdomen / GI: normal bowel sounds, non tender, soft Extremities: no pedal edema (trace), + pertinent finding (chronic leg swelling) Neurologic/Psychiatric: alert, normal mood/affect, oriented x 3 Skin: normal color (Chantell Austin MD) Hospital Course 76-year-old female, with an extensive medical history which includes COPD, coronary artery disease, congestive heart failure, who presents today with shortness of breath for the past month, but acute worsening over the past 1 week. The patient states "I haven't been breathing write for a while". At her baseline she denies having a chronic cough. She states that occasionally she would have a dry quite hack, but thinks it's due to the use of her BiPAP. However for the past week she has been noticing a mildly productive cough. She states that the sputum is clear. There is no blood or purulence to the sputum. She also states that she is feeling constantly wheezy. She notes that she is also more short of breath, particularly with exertion. She states that at her baseline she is able to walk approximately 20 feet to the bathroom, but now for the past month she needs to stop half way and catch her breath before completing this task. She does have a history of CAD, and does note that she gets chest pain which she describes as "heartburn centrally". She has been taking her nitroglycerin for this, and notes that it actually helps. She also takes a PPI which she notes provides additional relief. She does note that she's been experiencing this discomfort more more frequently for the past month. It is not associated with exertion and happens mostly at rest. She denies palpitations. She denies lightheadedness, or syncope. She denies fevers, but says that she's been feeling sweaty, and has been having chills. Her appetite has been poor as well as her intake. She denies any nausea or vomiting. She denies abdominal pain. She has not had any diarrhea. She does note constipation for the past year since starting opiates for rib and vertebral fractures. She was most recently in [place] approximately 3 weeks ago. Her daughter, who is at the bedside also states that she was much more short of breath and meat than usual this year in [place] and as a result had to come back home sooner. Acute on chronic COPD Exacerbation - DuoNeb's were given every 4 hours daily, and every 2 hours for shortness of breath or wheezing - She initially received 40 mg Solu-Medrol BID,she was discharged on 40 mg of prednisone daily for the next 3 days and wean to 35 mg daily for the next 3 days until she sees pulmonology as an outpatient - Echocardiogram : * Normal biventricular systolic function. * Mild concentric left ventricular hypertrophy. * Left ventricular diastolic dysfunction. * Mild left atrial dilatation. * No significant valvular abnormalities. - CT chest: 1. No acute intrathoracic findings. 2. Moderate emphysema. 3. No thoracic lymphadenopathy. 4. Severe T4 compression fracture which is old. Vertebral body height loss has significantly increased since CT of May 13, 2016. Healing fracture through the spinous process of the T4 vertebra. Congestive heart failure - Continue Lasix 120 mg daily with 20 mEq potassium supplementation Coronary artery disease - Continue aspirin, Plavix, simvastatin - Patient has an allergy to metoprolol; continue diltiazem - Troponins were trended trended and negative Hypertension - Continue Hyzaar Chronic Back Pain - Secondary to vertebral flat fracture - Continue Flexeril - Continue oxycodone Anxiety - Continue Xanax Constipation - Continue Colace, milk of magnesium and MiraLAX Follow-up appointment with Gilmer Chandler on Monday, 11/02 Total Time Spent: Greater than 30 minutes This includes examination of the patient, discharge planning, medication reconciliation, and communication with other providers. (Chantell Austin MD) Resident Physician Supervision Note: I was present with Dr. Austin during the history and exam. I discussed the case with the resident and agree with the findings and plan as documented in the note. Any exceptions or clarifications are listed here: [None] Documented By: Evaristo Rojas (Evaristo Rojas,D.O.) Discharge Instructions Please refer to the electronic Patient Visit Report (Discharge Instructions) for additional information. (Chantell Austin MD) Follow-Up With Gilmer Chandler on 11/02 (Chantell Austin MD) Additional Copies To Gilmer Chandler PA-C Resident Tracking Resident Involvement: Resident Care Provided Care Provided: Adult [facility] Medicine (Chantell Austin MD)
[2016-10-27] MEDS ORDERED: PRED10TA PO (11:11)
[2016-10-27 11:17] VITALS: PULSE 94; O2SAT 98
[2016-10-27 11:33] VITALS: BP 136/73; PULSE 98; TEMP 36.3; O2SAT 98
[2016-10-27 11:53] VITALS: BP 136/73; PULSE 98; TEMP 36.3; O2SAT 98
[2016-11-30] MEDS ORDERED: AZIT250T PO (09:46)
[2016-11-30] MEDS ORDERED: FLUC150T PO (09:46)
[2016-11-30] MEDS ORDERED: ROFL1TAB5 PO (09:46)
[2016-11-30] MEDS ORDERED: PRED10TA PO (09:51)
== END 2016-10-27 13:30 | disposition home or self-care (01) | DRG 192 ==
LOC: ENRESERVDT → ENRESERVTM → C.EDB 20:14 → C.MED 23:15
PROVIDERS: ADMIT Student in an Organized Health Care Education/Training Program; ATTEND Family Medicine
DX: J44.1 Chronic obstructive pulmonary disease with (acute) exacerbation (principal); I50.9 Heart failure, unspecified; F17.200 Nicotine dependence, unspecified, uncomplicated; F41.9 Anxiety disorder, unspecified; I25.2 Old myocardial infarction; J45.909 Unspecified asthma, uncomplicated; K21.9 Gastro-esophageal reflux disease without esophagitis; E78.5 Hyperlipidemia, unspecified; G47.33 Obstructive sleep apnea (adult) (pediatric); M81.0 Age-related osteoporosis without current pathological fracture; M19.90 Unspecified osteoarthritis, unspecified site; Z79.82 Long term (current) use of aspirin; Z99.81 Dependence on supplemental oxygen; I25.10 Atherosclerotic heart disease of native coronary artery without angina pectoris; I10 Essential (primary) hypertension; M54.9 Dorsalgia, unspecified; G89.29 Other chronic pain; K59.00 Constipation, unspecified

== ENCOUNTER → 2016-11-04 | Outpatient (CLI) | payer OTHER, MEDICARE ==
[~2016-11-04] MED LIST changes: +ACET-1311 PO; +ALPR-411 PO; +AZIT250T PO; +BACL10TA PO; -CYCL10TA6 PO; +CYNI1000 SC; +ERGO500011 PO; +FLUC150T PO; +FLUT1INH INH; -FSM70 PO; -LDDP5 TD; -LORA1TAB13 PO; +LOSA100T2 PO; -LOSA100T30 PO; +LVQ500 PO; +TOPI100T20 PO; -VTMD PO
--- NOTE | 2016-11-04 09:49 | DIAGNOSTIC IMAGING REPORT ---
ULTRASOUND RIGHT UPPER QUADRANT ABDOMEN CLINICAL HISTORY: Right upper quadrant abdominal pain. COMPARISON STUDY: Abdominal CT dated 05/15/2016. TECHNIQUE: Real-time, grayscale, and color flow sonography of the right upper quadrant of the abdomen was performed. Images are reviewed in the transverse and longitudinal planes. FINDINGS: Liver: The liver is normal in size and echotexture. There is no intrahepatic biliary ductal dilatation. The main portal vein is patent. Gallbladder: The gallbladder is normal in appearance. No gallstones are identified. There is no gallbladder wall thickening or pericholecystic fluid. A sonographic Morris's sign is reportedly absent. The common bile duct measures up to 0.6 cm in diameter. Pancreas: Visualized portions of the pancreatic head and body appear atrophic. Right kidney: Survey images of the right kidney demonstrate mild cortical atrophy. There is no hydronephrosis. Ascites: None. IMPRESSION: No acute sonographic abnormality is identified in the right upper quadrant. No gallstones are seen. Electronically signed by: Cyril Saldivar M.D. 11/04/2016 9:48 AM Dictated Date/Time: 11/04/2016 9:47 AM
== END | disposition home or self-care (01) ==
LOC: C.ULTR 09:13
PROVIDERS: ATTEND Physician Assistant
DX: R10.9 Unspecified abdominal pain (principal)

== ENCOUNTER 2016-11-10 08:42 | Inpatient (IN) | payer OTHER, MEDICARE ==
[~2016-11-10] VITALS: Ht 152.4 cm; Wt 84.5 kg
[~2016-11-10 08:42] MED LIST changes: -ACET-1311 PO; -AZIT250T PO; -ERGO500011 PO; -FLUC150T PO; -FLUT1INH INH; -LVQ500 PO
[2016-11-10] MEDS ORDERED: CEFTRIAXONE SOD INJ 1 GM ADDVIAL IV STA (08:55)
[2016-11-10] MEDS ORDERED: IPRATROPIUM BROMIDE NEB SOLN 0.02% 2.5 ML VIAL INH STA (08:55)
[2016-11-10] MEDS ORDERED: LEVALBUTEROL 1.25MG/0.5ML NEB INH STA (08:55)
[2016-11-10] MEDS ORDERED: METHYLPREDNISOLONE 125 MG VIAL IV STA (08:55)
[2016-11-10 09:11] VITALS: PULSE 104; O2SAT 100
--- NOTE | 2016-11-10 09:14 | EMERGENCY ROOM VISIT NOTE ---
History Report prepared by Sharmin: Yassine Hou Under the Supervision of: Dr. Cyril Deleon M.D. First contact with patient: 08:52 Chief Complaint: SHORTNESS OF BREATH Stated Complaint: SOB Nursing Triage Summary: Pt presents with c/o difficulty breathing worse over the past couple days. Cough of clear sputum. Pain in back/chest from coughing. History of Present Illness The patient is a 76 year old female who presents to the Emergency Room with complaints of persistent shortness of breath for the past two days. The patient has also had a productive cough. The cough is somewhat painful in her chest. She denies fevers. The patient has a history of COPD for which she wears 4L of oxygen at home. She also uses a nebulizer and inhalers at home. Her last nebulizer treatment was one hour prior to arrival, which did improve her symptoms. The patient is on Prednisone 10 mg all the time. She is also on Plavix and Aspirin but no Coumadin. She is not currently on antibiotics. She was in the hospital less than one month ago for a COPD exacerbation. She did not have the cough at that time. Source of History: patient Onset: two days ago Position: other (respiratory) Quality: other (short of breath) Timing: other (persistent) Modifying Factors (Relieving): other (nebulzer) Associated Symptoms: + chest pain (with cough), + cough, No fevers Review of Systems See HPI for pertinent positives & negatives. A total of 10 systems reviewed and were otherwise negative. Past Medical & Surgical Medical Problems: (1) AC MYOCARDIAL INFARCT,SUBENDO INFARCT,INITIAL EPIS (2) Acute bronchitis (3) ANXIETY STATE NOS (4) AORTIC VALVE DISORDER (5) ASTHMA, UNSPECIFIED (6) c diff colitis (7) CARDIOMYOPATH IN OTH DIS (8) Chest wall pain (9) CHRONIC RESPIRATORY FAILURE (10) Clostridium difficile colitis (11) CONGESTIVE HEART FAILURE NOS (12) COPD exacerbation (13) COPD exacerbation (14) copd exacerbation (15) ESOPHAGEAL REFLUX (16) Herpes zoster (17) HYPERLIPIDEMIA NEC/NOS (18) inflamation in lung (19) Multiple rib fractures (20) Multiple rib fractures (21) Multiple rib fractures (22) Neck pain, bilateral (23) OBSTR CHRONIC BRONCHITIS, W (ACUTE) EXACERBATION (24) OBSTRUCTIVE SLEEP APNEA (ADULT) (PEDIATRIC) (25) OSTEOARTHROS NOS-UNSPEC (26) OSTEOPOROSIS NOS (27) Rib pain on right side (28) Shortness of breath (29) SOB (shortness of breath) (30) Thoracic compression fracture (31) TOBACCO USE DISORDER Family History FHx: lung disease Social History Smoking Status: Former Smoker Alcohol Use: none Drug Use: none Marital Status: Housing Status: lives with family Occupation Status: retired Current/Historical Medications Scheduled Amitriptyline HCl (Amitriptyline HCl), 100 MG PO HS Aspirin (Aspirin 81), 81 MG PO DAILY Clopidogrel Bisulfate (Clopidogrel), 75 MG PO DAILY Diltiazem Hcl Extended Release (Diltiazem Hcl Er), 120 MG PO DAILY Docusate Sodium (Docusate Sodium), 10 MG PO BID Fluticasone Furoate-Vilanterol (Breo Ellipta 200-25 Mcg/INH), 1 INHA PO DAILY Furosemide (Lasix), 120 MG PO DAILY Hydrocortisone (Topical) (Hydrocortisone), 1 APPLN TOP BID Ipratropium-Albuterol (Combivent Respimat), 1 PUFFS INH QID Ipratropium-Albuterol (Duoneb), 1 TREATMENT INH Q4H Losartan Potassium & Hydrochlo (Hyzaar), 12.5-100 MG PO DAILY Oxycodone Hcl (Oxycontin), 15 MG PO Q12 Oxygen (Oxygen), 4 LITERS NA CONTINOUS Pantoprazole (Protonix), 40 MG PO BID Potassium Ext Rel (Klor-Con), 60 MEQ PO TID Prednisone Tab (Prednisone), 10 MG PO DIRECTED Simvastatin (Zocor), 10 MG PO QPM Topiramate (Topamax), 100 MG PO DAILY Triamcinolone Acet (Aristocort 0.1%), 1 APPLN TOP BID Umeclidinium Tracy (Incruse Ellipta), 1 INHA PO DAILY Scheduled PRN Acetaminophen (Tylenol), 650 MG PO Q4 PRN for Pain or Fever Alprazolam (Xanax), 0.5 MG PO Q12 PRN for Anxiety and/or Sedation Baclofen (Lioresal), 10 MG PO TID PRN for spasms Xsbqtzyyuh-Vrlcqaoxsbyvd-Ondnv (Fioricet), 1 TAB PO Q4 PRN for headache Nitroglycerin (Nitrostat), 0.4 MG UT UD PRN for Chest Pain Oxycodone HCl (Oxycodone HCl), 5 MG PO Q3.5H PRN for Pain Allergies Coded Allergies: Zolpidem (Verified Allergy, Intermediate, RASH, 11/10/16) Banana (Verified Allergy, Unknown, 11/10/16) Metoprolol (Verified Adverse Reaction, Severe, BRONCHOSPASM,EXAC.COPD, 05/19) Uncoded Allergies: "CLEANING PRODUCTS" (Allergy, Intermediate, Cleaning Products, 01/18/15) Physical Exam Vital Signs Date Time Temp Pulse Resp B/P Pulse Ox O2 Delivery O2 Flow Rate FiO2 11/10/16 11:51 Nasal Cannula 4.0 11/10/16 11:05 108 22 143/59 99 Nasal Cannula 4.0 11/10/16 09:52 97 22 149/74 99 Nasal Cannula 4.0 11/10/16 09:16 105 22 154/77 100 Nebulizer 11/10/16 09:11 104 22 100 Nasal Cannula 4.0 11/10/16 08:57 105 11/10/16 08:55 98 Nasal Cannula 4.0 11/10/16 08:54 98 Nasal Cannula 4.0 11/10/16 08:46 95 Nasal Cannula 4.0 11/10/16 08:45 36.7 108 20 138/70 95 Nasal Cannula 4.0 Physical Exam GENERAL: Patient is in no acute distress. HEENT: No acute trauma, normocephalic atraumatic, mucous membranes moist, no nasal congestion, no scleral icterus. NECK: No stridor, no adenopathy, no meningismus, trachea is midline. LUNGS: Increased respiratory rate, wheezing bilaterally, no rhonchi, breath sounds are equal. HEART: Tachycardic with a regular rhythm and no murmurs. ABDOMEN: Soft, nontender, bowel sounds positive, no hernias, no peritonitis. EXTREMITIES: No cyanosis or edema, full range of motion of all the joints without pain or difficulty, no signs for acute trauma. NEUROLOGIC: Oriented x 3, no acute motor or sensory deficits, no focal weakness. SKIN: No rash, no jaundice, no diaphoresis. Medical Decision & Procedures ER Provider Diagnostic Interpretation: X-ray results as stated below per interpretation by me and the radiologist: CHEST ONE VIEW PORTABLE CLINICAL HISTORY: EVALUATE RESPIRATORY DISTRESS. DYSPNEA COMPARISON STUDY: No previous studies for comparison. FINDINGS: The bones soft tissues and hemidiaphragms are normal. The cardiomediastinal silhouette is normal. The lungs are clear. The pulmonary vasculature is normal. IMPRESSION: Negative chest. Electronically signed by: Conor Santos M.D. 11/10/2016 9:27 AM Dictated Date/Time: 11/10/2016 9:19 AM Laboratory Results 11/10/16 09:00 Red Blood Count 4.69, Mean Corpuscular Volume 85.7, Mean Corpuscular Hemoglobin 26.4, Mean Corpuscular Hemoglobin Concent 30.8, Mean Platelet Volume 8.9, Neutrophils (%) (Auto) 73.9, Lymphocytes (%) (Auto) 14.1, Monocytes (%) (Auto) 7.2, Eosinophils (%) (Auto) 3.6, Basophils (%) (Auto) 0.5, Neutrophils # (Auto) 7.23, Lymphocytes # (Auto) 1.38, Monocytes # (Auto) 0.70, Eosinophils # (Auto) 0.35, Basophils # (Auto) 0.05 11/10/16 09:00 Test 11/10/16 09:00 11/10/16 10:00 White Blood Count 9.78 K/uL (4.8-10.8) Red Blood Count 4.69 M/uL (4.2-5.4) Hemoglobin 12.4 g/dL (12.0-16.0) Hematocrit 40.2 % (37-47) Mean Corpuscular Volume 85.7 fL (80-100) Mean Corpuscular Hemoglobin 26.4 pg (25-34) Mean Corpuscular Hemoglobin Concent 30.8 g/dl (32-36) Platelet Count 293 K/uL (130-400) Mean Platelet Volume 8.9 fL (7.4-10.4) Neutrophils (%) (Auto) 73.9 % Lymphocytes (%) (Auto) 14.1 % Monocytes (%) (Auto) 7.2 % Eosinophils (%) (Auto) 3.6 % Basophils (%) (Auto) 0.5 % Neutrophils # (Auto) 7.23 K/uL (1.4-6.5) Lymphocytes # (Auto) 1.38 K/uL (1.2-3.4) Monocytes # (Auto) 0.70 K/uL (0.11-0.59) Eosinophils # (Auto) 0.35 K/uL (0-0.5) Basophils # (Auto) 0.05 K/uL (0-0.2) RDW Standard Deviation 43.6 fL (36.4-46.3) RDW Coefficient of Variation 14.0 % (11.5-14.5) Immature Granulocyte % (Auto) 0.7 % Immature Granulocyte # (Auto) 0.07 K/uL (0.00-0.02) Anion Gap 5.0 mmol/L (3-11) Est Creatinine Clear Calc Drug Dose 76.0 ml/min Estimated GFR () 103.0 Estimated GFR (Non- 88.8 BUN/Creatinine Ratio 21.0 (10-20) Calcium Level 9.0 mg/dl (8.5-10.1) Total Bilirubin 0.3 mg/dl (0.2-1) Aspartate Amino Transf (AST/SGOT) 9 U/L (15-37) Alanine Aminotransferase (ALT/SGPT) 29 U/L (12-78) Alkaline Phosphatase 93 U/L (45-117) Total Protein 6.8 gm/dl (6.4-8.2) Albumin 3.4 gm/dl (3.4-5.0) Globulin 3.4 gm/dl (2.5-4.0) Albumin/Globulin Ratio 1.0 (0.9-2) Prothrombin Time 10.8 SECONDS (9.0-12.0) Prothromb Time International Ratio 1.0 (0.9-1.1) Activated Partial Thromboplast Time 27.3 SECONDS (21.0-31.0) Partial Thromboplastin Ratio 1.1 Laboratory results reviewed by me. Medications Administered Medications (Trade) Dose Ordered Sig/Olimpia Route Start Time Stop Time Status Last Admin Dose Admin Levalbuterol (Xopenex 1.25MG/ 0.5ML Neb) 1.25 mg NOW STAT INH 11/10/16 08:55 11/10/16 08:59 DC 11/10/16 09:11 1.25 MG Ipratropium Tracy (Atrovent 0.02% 0.5MG/2.5ML Neb) 0.5 mg NOW STAT INH 11/10/16 08:55 11/10/16 08:59 DC 11/10/16 09:11 0.5 MG Methylprednisolone Sodium Succinate (Solu-Medrol IV) 80 mg NOW STAT IV 11/10/16 08:55 11/10/16 08:59 DC 11/10/16 09:14 80 MG Ceftriaxone Sodium (Rocephin Inj) 1 gm NOW STAT IV 11/10/16 08:55 11/10/16 08:59 DC 11/10/16 09:14 1 GM ECG Indication: SOB/dyspnea Rate (beats per minute): 106 Rhythm: sinus tachycardia Findings: no acute ischemic change, no ectopy, other (non-specific T wave changes) ED Course 0854: The patient was evaluated in room B2. A complete history and physical exam was performed. 0855: Rocephin 1 gm IV, Solu-Medrol 80 mg IV, Ipratropium Tracy 0.5 mg INH, : Levalbuterol 1.25 mg INH. 1100: Reassessed and updated the patient. Medicine is being paged. 1112: Discussed the case with DEBBIE Estrada Hospitalist. The patient will be evaluated. Medical Decision Differential diagnosis includes exacerbation of COPD, pneumonia, bronchitis, CHF , cardiac ischemia, dysthymia, anemia, electrolyte imbalance. There is no leukocytosis or concerning anemia. No significant electrolyte abnormality, kidney failure or hepatitis. There is no coagulopathy. EKG shows a sinus tachycardia with an old anterior septal infarct, no acute ischemia. Chest x-ray does not show any obvious pneumonia, no CHF or pneumothorax. The patient presents with increasing dyspnea. She has chronic COPD and wears chronic O2. Despite her outpatient treatment, she feels like she is worsening. Looking at old records, she has had similar presentations and has required hospitalization. The patient received a Xopenex Atrovent neb, she was given IV ceftriaxone and IV Solu-Medrol. Despite this treatment, the patient still feels quite poorly. She is too short of breath to be at home. I suspect she has acute bronchitis with a flare of her COPD. I did discuss the case with the patient case manager. The on-call hospitalist was consulted. Consults Time Called: 1100 Consulting Physician: DEBBIE Estrada Hospitalist Returned Call: 1112 The patient will be evaluated. Impression Primary Impression: Shortness of breath Additional Impressions: COPD exacerbation Acute bronchitis Scribe Attestation The scribe's documentation has been prepared under my direction and personally reviewed by me in its entirety. I confirm that the note above accurately reflects all work, treatment, procedures, and medical decision making performed by me. Departure Information Dispostion Being Evaluated By Hospitalist Referrals No Doctor, Assigned (PCP) Patient Instructions My [facility] Problem Qualifiers Additional Impressions: Acute bronchitis Bronchitis organism: unspecified organism Qualified Codes: J20.9 - Acute bronchitis, unspecified
[2016-11-10 09:29] LABS: BASO % 0.5 %; BASO ABS # 0.05 K/uL (0-0.2); COMPLETE YES; EOS % 3.6 %; HEMATOCRIT 40.2 % (37-47); IG% 0.7 %; LYMPH % 14.1 %; LYMPH ABS # 1.38 K/uL (1.2-3.4); MEAN CELL VOLUME 85.7 fL (80-100); MEAN CORPUSCULAR HEMOGLOBIN 26.4 pg (25-34); MEAN CORPUSCULAR HGB CONC 30.8 g/dl (32-36); MEAN PLATELET VOLUME 8.9 fL (7.4-10.4); MONO % 7.2 %; NEUT % 73.9 %; PLATELET COUNT 293 K/uL (130-400); RED BLOOD COUNT 4.69 M/uL (4.2-5.4); WHITE BLOOD COUNT 9.78 K/uL (4.8-10.8)
--- NOTE | 2016-11-10 09:29 | DIAGNOSTIC IMAGING REPORT ---
CHEST ONE VIEW PORTABLE CLINICAL HISTORY: EVALUATE RESPIRATORY DISTRESS. DYSPNEA COMPARISON STUDY: No previous studies for comparison. FINDINGS: The bones soft tissues and hemidiaphragms are normal. The cardiomediastinal silhouette is normal. The lungs are clear. The pulmonary vasculature is normal. IMPRESSION: Negative chest. Electronically signed by: Conor Sanots M.D. 11/10/2016 9:27 AM Dictated Date/Time: 11/10/2016 9:19 AM
[2016-11-10] MEDS ORDERED: ACET-1311 PO (09:36)
[2016-11-10 09:49] LABS: CREATININE 0.62 mg/dl (0.60-1.20); POTASSIUM 3.8 mmol/L (3.5-5.1)
[2016-11-10 10:21] LABS: PARTIAL THROMBOPLASTIN RATIO 1.1; PROTHROMBIN TIME (PATIENT) 10.8 SECONDS (9.0-12.0)
[2016-11-10 11:51] VITALS: BMI 35.7
[2016-11-10] MEDS ORDERED: POLYETHYLENE (MIRALAX) 17 GM PACK PO PRN (12:15)
[2016-11-10] MEDS ORDERED: ONDANSETRON INJ 2 MG/ML 2 ML VIAL IV PRN (12:15)
[2016-11-10] MEDS ORDERED: LEVALBUTEROL/IPRATROPIUM NEB INH SCH (12:15)
[2016-11-10] MEDS ORDERED: NITROGLYCERIN 0.4 MG SL PER TAB CHARGE SL PRN (12:15)
--- NOTE | 2016-11-10 12:45 | History and Physical ---
History & Physical Date & Time of Service: November 10, 2016 at 12:35 Chief Complaint: SOB Primary Care Physician: Jaswant Patel M.D. History of Present Illness 76-year-old female with a past medical history of extensive COPD, coronary artery disease, hyperlipidemia, anxiety, severe compression fractures presented to the ER with complaints of persistent shortness of breath that started 2 days prior to arrival. She was recently admitted from October 23- for COPD exacerbation and discharged on 40 mg of prednisone to be weaned down. She had been using 10 mg of prednisone for the last 4 days. She also complained about cough productive of mucoid sputum. She however denied any fevers or chills. Also complains of backache which is worsened with coughing Past Medical/Surgical History Medical Problems: (1) AC MYOCARDIAL INFARCT,SUBENDO INFARCT,INITIAL EPIS Status: Chronic (2) Acute bronchitis Status: Resolved (3) ANXIETY STATE NOS Status: Chronic (4) AORTIC VALVE DISORDER Status: Chronic (5) ASTHMA, UNSPECIFIED Status: Chronic (6) CARDIOMYOPATH IN OTH DIS Status: Chronic (7) Chest wall pain Status: Resolved (8) CHRONIC RESPIRATORY FAILURE Status: Chronic (9) Clostridium difficile colitis Status: Resolved (10) CONGESTIVE HEART FAILURE NOS Status: Chronic (11) COPD exacerbation Status: Resolved (12) ESOPHAGEAL REFLUX Status: Chronic (13) Herpes zoster Status: Chronic (14) HYPERLIPIDEMIA NEC/NOS Status: Chronic (15) Multiple rib fractures Status: Resolved (16) Multiple rib fractures Status: Resolved (17) Multiple rib fractures Status: Resolved (18) OBSTR CHRONIC BRONCHITIS, W (ACUTE) EXACERBATION Status: Chronic (19) OBSTRUCTIVE SLEEP APNEA (ADULT) (PEDIATRIC) Status: Chronic (20) OSTEOARTHROS NOS-UNSPEC Status: Chronic (21) OSTEOPOROSIS NOS Status: Chronic (22) Rib pain on right side Status: Resolved (23) Shortness of breath Status: Resolved (24) TOBACCO USE DISORDER Status: Chronic Family History FHx: lung disease Social History Smoking Status: Former Smoker Drug Use: none Marital Status: Housing status: lives with family Occupational Status: retired Immunizations History of Influenza Vaccine: No History of Tetanus Vaccine?: No Tetanus Immunization Date: Jun 07, 2003 History of Pneumococcal: Yes Pneumococcal Date: Jun 07, 2004 History of Hepatitis B Vaccine: No Multi-Drug Resistant Organisms History of MDRO: No Allergies Coded Allergies: Zolpidem (Verified Allergy, Intermediate, RASH, 11/10/16) Banana (Verified Allergy, Unknown, 11/10/16) Metoprolol (Verified Adverse Reaction, Severe, BRONCHOSPASM,EXAC.COPD, 05/19) Uncoded Allergies: "CLEANING PRODUCTS" (Allergy, Intermediate, Cleaning Products, 01/18/15) Home Medications Scheduled Amitriptyline HCl (Amitriptyline HCl), 100 MG PO HS Aspirin (Aspirin 81), 81 MG PO DAILY Clopidogrel Bisulfate (Clopidogrel), 75 MG PO DAILY Diltiazem Hcl Extended Release (Diltiazem Hcl Er), 120 MG PO DAILY Docusate Sodium (Docusate Sodium), 10 MG PO BID Fluticasone Furoate-Vilanterol (Breo Ellipta 200-25 Mcg/INH), 1 INHA PO DAILY Furosemide (Lasix), 120 MG PO DAILY Hydrocortisone (Topical) (Hydrocortisone), 1 APPLN TOP BID Ipratropium-Albuterol (Combivent Respimat), 1 PUFFS INH QID Ipratropium-Albuterol (Duoneb), 1 TREATMENT INH Q4H Losartan Potassium & Hydrochlo (Hyzaar), 12.5-100 MG PO DAILY Oxycodone Hcl (Oxycontin), 15 MG PO Q12 Oxygen (Oxygen), 4 LITERS NA CONTINOUS Pantoprazole (Protonix), 40 MG PO BID Potassium Ext Rel (Klor-Con), 60 MEQ PO TID Prednisone Tab (Prednisone), 10 MG PO DIRECTED Simvastatin (Zocor), 10 MG PO QPM Topiramate (Topamax), 100 MG PO DAILY Triamcinolone Acet (Aristocort 0.1%), 1 APPLN TOP BID Umeclidinium [place] (Incruse Ellipta), 1 INHA PO DAILY Scheduled PRN Acetaminophen (Tylenol), 650 MG PO Q4 PRN for Pain or Fever Alprazolam (Xanax), 0.5 MG PO Q12 PRN for Anxiety and/or Sedation Baclofen (Lioresal), 10 MG PO TID PRN for spasms Ceambersln-Txgwhimqgraqf-Peyup (Fioricet), 1 TAB PO Q4 PRN for headache Nitroglycerin (Nitrostat), 0.4 MG UT UD PRN for Chest Pain Oxycodone HCl (Oxycodone HCl), 5 MG PO Q3.5H PRN for Pain Review of Systems Constitutional: No chills, No fever Eyes: No worsening of vision ENT: No hearing loss Respiratory: + cough, + dyspnea at rest, + dyspnea on exertion, + shortness of breath, + sputum (clear), No hemoptysis Cardiovascular: No PND, No chest pain, No edema, No orthopnea Abdomen: No nausea, No pain, No vomiting Musculoskeletal: + joint pain (chronic back pain) Genitourinary - Female: No dysuria, No urinary frequency, No urinary urgency Neurologic: No memory loss, No numbness/tingling, No paralysis Psychiatric: + anxiety, No depression symptoms Endocrine: No fatigue Hematologic / Lymphatic: No abnormal bleeding/bruising Physical Exam Vital Signs Date Time Temp Pulse Resp B/P Pulse Ox O2 Delivery O2 Flow Rate FiO2 11/10/16 11:51 Nasal Cannula 4.0 11/10/16 11:05 108 22 143/59 99 Nasal Cannula 4.0 11/10/16 09:52 97 22 149/74 99 Nasal Cannula 4.0 11/10/16 09:16 105 22 154/77 100 Nebulizer 11/10/16 09:11 104 22 100 Nasal Cannula 4.0 11/10/16 08:57 105 11/10/16 08:55 98 Nasal Cannula 4.0 11/10/16 08:54 98 Nasal Cannula 4.0 11/10/16 08:46 95 Nasal Cannula 4.0 11/10/16 08:45 36.7 108 20 138/70 95 Nasal Cannula 4.0 General Appearance: WD/WN, + moderate distress Head: normocephalic, atraumatic Eyes: normal inspection ENT: normal ENT inspection, hearing grossly normal Neck: supple Respiratory/Chest: + respiratory distress, + accessory muscle use, + wheezing ( diffusely) Cardiovascular: + tachycardia Back: no CVA tenderness Extremities/Musculoskelatal: + pedal edema Neurologic/Psych: alert, normal mood/affect, oriented x 3 Skin: normal color Diagnostics Laboratory Results Results Past 24 Hours Test 11/10/16 09:00 11/10/16 10:00 Range/Units White Blood Count 9.78 4.8-10.8 K/uL Red Blood Count 4.69 4.2-5.4 M/uL Hemoglobin 12.4 12.0-16.0 g/dL Hematocrit 40.2 37-47 % Mean Corpuscular Volume 85.7 80-100 fL Mean Corpuscular Hemoglobin 26.4 25-34 pg Mean Corpuscular Hemoglobin Concent 30.8 32-36 g/dl Platelet Count 293 130-400 K/uL Mean Platelet Volume 8.9 7.4-10.4 fL Neutrophils (%) (Auto) 73.9 % Lymphocytes (%) (Auto) 14.1 % Monocytes (%) (Auto) 7.2 % Eosinophils (%) (Auto) 3.6 % Basophils (%) (Auto) 0.5 % Neutrophils # (Auto) 7.23 1.4-6.5 K/uL Lymphocytes # (Auto) 1.38 1.2-3.4 K/uL Monocytes # (Auto) 0.70 0.11-0.59 K/uL Eosinophils # (Auto) 0.35 0-0.5 K/uL Basophils # (Auto) 0.05 0-0.2 K/uL RDW Standard Deviation 43.6 36.4-46.3 fL RDW Coefficient of Variation 14.0 11.5-14.5 % Immature Granulocyte % (Auto) 0.7 % Immature Granulocyte # (Auto) 0.07 0.00-0.02 K/uL Sodium Level 141 136-145 mmol/L Potassium Level 3.8 3.5-5.1 mmol/L Chloride Level 104 98-107 mmol/L Carbon Dioxide Level 32 21-32 mmol/L Anion Gap 5.0 3-11 mmol/L Blood Urea Nitrogen 13 7-18 mg/dl Creatinine 0.62 0.60-1.20 mg/dl Est Creatinine Clear Calc Drug Dose 76.0 ml/min Estimated GFR () 103.0 Estimated GFR (Non- 88.8 BUN/Creatinine Ratio 21.0 10-20 Random Glucose 107 70-99 mg/dl Calcium Level 9.0 8.5-10.1 mg/dl Total Bilirubin 0.3 0.2-1 mg/dl Aspartate Amino Transf (AST/SGOT) 9 15-37 U/L Alanine Aminotransferase (ALT/SGPT) 29 12-78 U/L Alkaline Phosphatase 93 45-117 U/L Total Protein 6.8 6.4-8.2 gm/dl Albumin 3.4 3.4-5.0 gm/dl Globulin 3.4 2.5-4.0 gm/dl Albumin/Globulin Ratio 1.0 0.9-2 Prothrombin Time 10.8 9.0-12.0 SECONDS Prothromb Time International Ratio 1.0 0.9-1.1 Activated Partial Thromboplast Time 27.3 21.0-31.0 SECONDS Partial Thromboplastin Ratio 1.1 Microbiology Results 11/10/16 Blood Culture, Received Pending 11/10/16 Blood Culture, Received Pending Diagnostic Radiology CHEST ONE VIEW PORTABLE CLINICAL HISTORY: EVALUATE RESPIRATORY DISTRESS. DYSPNEA COMPARISON STUDY: No previous studies for comparison. FINDINGS: The bones soft tissues and hemidiaphragms are normal. The cardiomediastinal silhouette is normal. The lungs are clear. The pulmonary vasculature is normal. IMPRESSION: Negative chest. EKG Sinus tachycardia possible limb lead reversal. interpretation assumes no reversal. Left posterior fascicular block Nonspecific T wave abnormality Abnormal ECG When compared with ECG of 23-OCT-2016 20:34, there now appears to be a limb lead reversal Impression Assessment and Plan Acute on chronic COPD Exacerbation CXR negative - ABG ordered - DuoNeb's every 6 hours daily, and every 2 hours for shortness of breath or wheezing - Solumedrol 60 mg q6h - levaquin 500 mg qd - Echocardiogram : 10/23 * Normal biventricular systolic function. * Mild concentric left ventricular hypertrophy. * Left ventricular diastolic dysfunction. * Mild left atrial dilatation. * No significant valvular abnormalities. - CT chest:10/24 1. No acute intrathoracic findings. 2. Moderate emphysema. 3. No thoracic lymphadenopathy. 4. Severe T4 compression fracture which is old. Vertebral body height loss has significantly increased since CT of May 13, 2016. Healing fracture through the spinous process of the T4 vertebra. Congestive heart failure - Continue Lasix 120 mg daily with 20 mEq potassium supplementation Coronary artery disease - Continue aspirin, Plavix, simvastatin - continue diltiazem Hypertension - Continue Hyzaar Chronic Back Pain - Secondary to vertebral Compression fracture - Continue Flexeril - Continue oxycodone Anxiety - Continue Xanax DVT prophylaxis: Lovenox Disposition: admitted to telemetry Level of Care Telemetry Advanced Directives Existing Living Will: Yes Existing Power of Mud Analysis Well Logging Captain: Yes VTE Prophylaxis VTE Risk Assessment Done? Y/N: Yes Risk Level: Moderate Given or contraindicated: Enoxaparin (Lovenox)SQ Resident Tracking Resident Involvement: Resident Care Provided Care Provided: Adult Hospital Medicine Reviewed: Pt Seen/Exam by Me History Resident Physician Supervision Note: I interviewed and examined the patient. Discussed with Dr. Austin and agree with findings and plan as documented in the note. Any exceptions or clarifications are listed here: Patient returns to the ER after recent admission for acute exacerbation of COPD with worsening shortness of breath after being tapered down to her home dose of prednisone. She was not acutely hypoxic but she had increased work of breathing and tachypnea in the ER despite nebulizer treatments and IV Solu- Medrol. She is also having to use BiPAP as needed at home, but normally she is on 4 L nasal cannula chronically. Laboratories were all essentially normal, her EKG showed a limb lead reversal but otherwise no ischemic changes, and her chest x-ray showed no acute changes. She will be admitted for acute exacerbation of COPD. Vital signs reviewed Morbidly obese, in no acute distress, is mildly diaphoretic Regular rate and rhythm, no murmurs gallops or rubs Diffuse mild wheezing but very difficult to auscultate breath sounds throughout given morbidly obese body habitus Abdomen positive bowel sounds, morbidly obese, soft, nontender, nondistended Extremities right greater than left trace pitting edema which she says is chronic for her Skin no rashes 76-year-old female with multiple medical problems here with recurrent acute exacerbation of COPD. ABG with no evidence of significant hypercarbia or acidosis. -IV steroids and taper down as able to to her home dose of prednisone 10 mg daily -Nebulizers scheduled around the clock and she will bring in her home inhalers which are long-acting beta agonist with inhaled corticosteroid and long-acting muscarinic antagonist -Levaquin 500 milligrams IV daily for severe exacerbation of COPD -Appreciate pulmonology consultation -BiPAP when necessary -Continue home medications for all other conditions -Checking Doppler of the right lower extremity to rule out DVT -Lovenox for DVT prophylaxis, however patient is refusing this due to multiple bruises on her abdomen from previous admission-we'll order SCDs Documented By: Jazmin Karimi
[2016-11-10 12:54] LABS: ALLEN TEST POS (POS); O2 ADMINISTRATION 4L
[2016-11-10 13:00] LABS: ARTERIAL BLD GAS O2 SATURATION 97.7 % (90-95); ARTERIAL BLOOD GAS BASE EXCESS 4.9 mEq/L (-9-1.8); ARTERIAL BLOOD GAS HCO3 30 mmol/L (19-24); ARTERIAL BLOOD GAS PO2 100 mm/Hg (80-95); ARTERIAL BLOOD GAS pH 7.45 (7.35-7.45)
[2016-11-10] MEDS ORDERED: BUTALBITAL/ACETAMIN/CAFFEINE TAB PO PRN (13:00)
[2016-11-10] MEDS ORDERED: ACETAMINOPHEN 325 MG TAB PO PRN (13:00)
[2016-11-10] MEDS ORDERED: BACLOFEN 10 MG TAB PO PRN (13:00)
[2016-11-10 13:16] VITALS: BP 133/76; PULSE 107; TEMP 36.9; O2SAT 94
[2016-11-10] MEDS ORDERED: POTASSIUM CHLORIDE 20 MEQ TABCR PO SCH (14:00)
[2016-11-10] MEDS: ENOXAPARIN 40 MG/0.4 ML SYR SC SCH (14:00)
[2016-11-10 14:25] VITALS: PULSE 105; O2SAT 100
[2016-11-10] MEDS ORDERED: IPRATROPIUM BROMIDE NEB SOLN 0.02% 2.5 ML VIAL INH SCH (15:00)
[2016-11-10] MEDS ORDERED: LEVALBUTEROL 1.25MG/0.5ML NEB INH SCH (15:00)
[2016-11-10] MEDS: METHYLPREDNISOLONE IV 60 MG in SYRINGE 0 ML IV SCH ×2 (15:35→20:51)
[2016-11-10] MEDS: LEVOFLOXACIN / D5W 500 MG in PREMIXED IN D5W 100 ML IV SCH (15:35)
[2016-11-10 15:44] VITALS: BP 143/77; PULSE 100; TEMP 36.8; O2SAT 95
[2016-11-10] MEDS ORDERED: NURSING VERBAL MED ORDER ONE (16:00)
[2016-11-10] MEDS: OXYCODONE HCL IR 5 MG TAB (IMMEDIATE RELEASE) PO PRN (16:15)
--- NOTE | 2016-11-10 17:13 | PULMONARY CONSULTATION ---
DATE OF CONSULTATION: 11/10/2016 TIME: 3:00 p.m. REPORT OF CONSULTATION: The patient was seen in room #232. She is a 76-year-old female with a longstanding history of COPD. She has had breathing problems for about 15 years. She was last hospitalized from October 23 through October 27. She had an exacerbation of COPD at that time. She was doing well. She followed up and saw Gilmer Chandler PA-C on November 04. Beginning in November 07 she developed a worsening cough. She states she does not usually cough. She typically is short of breath, but without much cough. The cough has been severe at times. She tried benzonatate Perles without benefit. She tried Coricidin HBP without benefit. Her cough has been productive of scant amounts of clear sputum. There has been no hemoptysis at all. The cough has made it hard for her to sleep. She has had nasal congestion. She has had a sore throat. She has had some sweats but no fevers. She has not had chest pains. She has noticed increased back pain. She has a history of compression fractures and when her cough gets worse, the back pain gets worse. She has had increased urinary incontinence related to her coughing. She was not feeling well. Her daughter stayed with her last night because she knew she did not feel good. Today, they came to the Emergency Room and she was admitted. PAST MEDICAL HISTORY: 1. MD 2. CHF. 3. COPD as noted. 4. Rib fractures, April 2016 when she was hospitalized after a fall. 5. GERD. 6. Anxiety. 7. Prior C. diff. 8. Hyperlipidemia. 9. Herpes zoster. PAST SURGICAL HISTORY: 1. Hysterectomy. 2. Low back surgery. 3. Cardiac catheterization x3. SOCIAL HISTORY: Tobacco none for 7 years. Previously 1 pack per day for about 45 years. ETOH - very occasional. ALLERGIES: 1. ZOLPIDEM. 2. METOPROLOL. 3. CLEANING AGENTS. FAMILY HISTORY: Father at age 80, colon cancer. Mother at age 70, CHF. MEDICATIONS AT HOME: 1. Alprazolam 0.5 q. 12 hours p.r.n. 2. Aspirin 81 mg daily. 3. Baclofen 10 mg t.i.d. p.r.n. spasms. 4. Fioricet p.r.n. 5. Clopidogrel 75 mg daily. 6. Diltiazem 120 mg daily. 7. Docusate 100 mg b.i.d. 8. Breo Ellipta 200/25 one puff daily. 9. Furosemide 40 mg daily. 10. Hydrocortisone topical. 11. Combivent Respimat q.i.d. 12. DuoNebs q. 4 hours p.r.n. 13. Losartan 12.5/100 one daily. 14. Nitro p.r.n. 15. Oxycodone 5 mg q. 3-1/2 hours p.r.n. 16. O2 4 liters continuous. 17. Pantoprazole 40 mg b.i.d. 18. Potassium 60 mEq b.i.d. 19. Prednisone 10 mg daily. 20. Simvastatin 10 mg daily. 21. Topiramate 100 mg daily. 22. Aristocort 0.1% b.i.d. 23. Incruse Ellipta 1 puff daily. REVIEW OF SYSTEMS: In addition to the above-mentioned complaints, the patient's daughter thinks that the right leg is a little swollen compared with normal. The patient is not complaining of pain. The remainder of the review of systems is negative except as noted above. Ten systems were reviewed. PHYSICAL EXAMINATION: GENERAL: The patient is a 76-year-old female who was cooperative, alert and oriented. She did not appear in any distress. She coughed occasionally. VITAL SIGNS: The patient's BMI is 35.7. Weight is 83 kilograms. Temperature is 36.9. HEENT: Eye exam showed evidence of cataract surgery bilaterally. Nares were clear. Mouth exam was unremarkable. NECK: Palpation of the neck reveals no lymph nodes or masses. CHEST: Normal expansion and development. Heart rate was 110 per minute. The rhythm was regular. Blood pressure 133/76. Respiratory rate 22 per minute and not labored. Auscultation revealed wheezes heard bilaterally on expiration. She had marked prolongation to the expiratory phase of respiration. Saturation was 94% on 4 liters. ABDOMEN: Soft. It was obese. Bowel sounds were present. There was no tenderness to palpation or masses. EXTREMITIES: Showed that the right leg is slightly larger than the left leg, below the knee. She has ecchymosis in the left arm area from use of a blood pressure cuff in the Emergency Room. In part, because of this, she has refused subcutaneous injections for anticoagulation. IMAGING DATA: Chest x-ray done today was essentially negative. She did have a CAT scan of the chest done October 24 that likewise did not show any acute process. Emphysema was noted. Severe T4 compression fracture was noted. A healing fracture was noted through the spinous process of T4. LABORATORY DATA: White count is 9.78. Hemoglobin is 12.4. Platelets are 293,000. INR was 1.0 and PTT was 27.3. Blood gas showed a pH of 7.45 with a pCO2 of 44 and a pO2 of 100% on 4 liters. Electrolytes showed sodium 141, potassium 3.8, chloride 104, bicarbonate 32. BUN was 13 with a creatinine of 0.62. Liver functions were normal. IMPRESSION: 1. Chronic obstructive pulmonary disease with exacerbation. 2. Obstructive sleep apnea - treated with BiPAP. 3. Obesity. 4. Coronary artery disease. 5. Right leg is larger than left leg. COMMENTS AND RECOMMENDATIONS: The patient is on methylprednisolone 60 mg IV q. 6 hours. She is on levofloxacin. She is ordered levalbuterol and ipratropium every 3 hours. I believe that should be every 6 hours, but she could have them sooner if in distress. I am going to order a venous Doppler to make sure she does not have a DVT in her leg. Further suggestions will be made as her course unfolds. Thank you for asking us to assist in her care.
[2016-11-10 19:12] VITALS: BP 148/98; PULSE 95; TEMP 37.3; O2SAT 98
[2016-11-10] MEDS ORDERED: LEVALBUTEROL/IPRATROPIUM NEB INH PRN (19:15)
[2016-11-10] MEDS: LEVALBUTEROL 1.25MG/0.5ML NEB INH SCH (20:12)
[2016-11-10] MEDS: IPRATROPIUM BROMIDE NEB SOLN 0.02% 2.5 ML VIAL INH SCH (20:13)
[2016-11-10] MEDS: OXYCODONE HCL 15 MG TABCR (OXYCONTIN) PO SCH (20:48)
[2016-11-10] MEDS: POTASSIUM CHLORIDE 20 MEQ TABCR PO SCH (20:49)
[2016-11-10] MEDS: AMITRIPTYLINE HCL 100 MG TAB PO SCH (20:50)
[2016-11-10] MEDS: SIMVASTATIN 10 MG TAB PO SCH (20:50)
[2016-11-10] MEDS: PANTOprazole SOD 40 MG TAB PO SCH (20:50)
[2016-11-10] MEDS: DOCUSATE SODIUM 100 MG CAP PO SCH (20:51)
[2016-11-10] MEDS: ALPRAZOLAM 0.5 MG TAB PO PRN (20:55)
[2016-11-10 23:36] VITALS: BP 107/68; PULSE 90; TEMP 36.4; O2SAT 97
[2016-11-11] VITALS (13 sets, daily range): BP systolic 113–149; BP diastolic 66–77; PULSE 82–98; TEMP 36.3–36.9; O2SAT 91–100
[2016-11-11] MEDS: LEVALBUTEROL 1.25MG/0.5ML NEB INH SCH ×4 (02:20→20:54)
[2016-11-11] MEDS: IPRATROPIUM BROMIDE NEB SOLN 0.02% 2.5 ML VIAL INH SCH ×4 (02:20→20:53)
[2016-11-11] MEDS: METHYLPREDNISOLONE IV 60 MG in SYRINGE 0 ML IV SCH ×4 (04:41→22:04)
[2016-11-11 05:52] LABS: COMPLETE YES; HEMATOCRIT 36.7 % (37-47); IG% 0.3 %; LYMPH % 9.7 %; LYMPH ABS # 0.59 K/uL (1.2-3.4); MEAN CELL VOLUME 86.6 fL (80-100); MEAN CORPUSCULAR HEMOGLOBIN 27.4 pg (25-34); MEAN CORPUSCULAR HGB CONC 31.6 g/dl (32-36); MONO % 5.3 %; NEUT % 84.7 %; PLATELET COUNT 284 K/uL (130-400); RED BLOOD COUNT 4.24 M/uL (4.2-5.4); WHITE BLOOD COUNT 6.06 K/uL (4.8-10.8)
[2016-11-11 06:37] LABS: BUN/CREATININE RATIO 23.2 (10-20); CALCIUM 8.6 mg/dl (8.5-10.1); CREATININE 0.7 mg/dl (0.60-1.20); MAGNESIUM 2.4 mg/dl (1.8-2.4)
--- NOTE | 2016-11-11 08:03 | DIAGNOSTIC IMAGING REPORT ---
BILATERAL LOWER EXTREMITY VENOUS DOPPLER HISTORY: Pain. Edema. right leg > left leg COMPARISON STUDY: 12/15/2011 FINDINGS: There is normal compressibility, flow, and augmentation within the bilateral lower extremity deep venous systems. IMPRESSION: No DVT within the right or left lower extremity. Electronically signed by: Conor Santos M.D. 11/11/2016 8:02 AM Dictated Date/Time: 11/11/2016 8:01 AM
[2016-11-11] MEDS: DOCUSATE SODIUM 100 MG CAP PO SCH ×2 (08:06→20:28)
[2016-11-11] MEDS: PANTOprazole SOD 40 MG TAB PO SCH ×2 (08:06→20:29)
[2016-11-11] MEDS: FUROSEMIDE 40 MG TAB PO SCH (08:06)
[2016-11-11] MEDS: POTASSIUM CHLORIDE 20 MEQ TABCR PO SCH ×2 (08:07→20:33)
[2016-11-11] MEDS: ASPIRIN 81 MG ECTAB PO SCH (08:08)
[2016-11-11] MEDS: HYDROCHLOROTHIAZIDE 25 MG TAB PO SCH (08:09)
[2016-11-11] MEDS: CLOPIDOGREL BISULFATE 75 MG TAB PO SCH (08:10)
[2016-11-11] MEDS: LOSARTAN POTASSIUM 50 MG TAB PO SCH (08:10)
[2016-11-11] MEDS: DILTIAZEM HCL 120 MG EXT REL CAP PO SCH (08:10)
[2016-11-11] MEDS: TOPIRAMATE 100 MG TAB PO SCH (08:11)
[2016-11-11] MEDS: OXYCODONE HCL IR 5 MG TAB (IMMEDIATE RELEASE) PO PRN (08:12)
[2016-11-11] MEDS: OXYCODONE HCL 15 MG TABCR (OXYCONTIN) PO SCH ×2 (08:15→20:27)
--- NOTE | 2016-11-11 08:57 | Clinical Documentation Query ---
QUERY 1 OF [address] BIGGS, In your clinical opinion is this patient being managed for: ( ) Acute and chronic respiratory failure, POA ( ) Other explanation of clinical findings (Please Explain) ( ) Unable to determine (Please Define) ( ) Need to Discuss ( ) Not Agree The medical record reflects the following clinical findings, treatment, and risk factors. Clinical Indicators: 76 yo female presenting with persistent shortness of breath x 2 days. H/P describes pt as being in moderate respiratory distress, using accessory muscles, being tachypneic and increased work of breathing. VS 36.7-108-20 to 24, 138/70, 95% on 4L Treatment: tele, O2 support, duonebs, IV solumedrol, IV levaquin, BIPAP prn, uses chronic home O2. Risk Factors: age, COPD exacerbation, MITCH, obesity, CHF QUERY 2 OF 2 In your clinical opinion is this patient being managed for: ( ) Chronic diastolic CHF ( ) Other explanation of clinical findings (Please Explain) ( ) Unable to determine (Please Define) ( ) Need to Discuss ( ) Not Agree The medical record reflects the following clinical findings, treatment, and risk factors. Clinical Indicators: Pt noted to have chronic CHF. Review of October 2016 ECHO showed EF of 60-65% Treatment: diltiazem, lasix, HCTZ, cozaar Risk Factors: age, MD, COPD, cardiomyopathy, aortic valve disorder, CAD Please clarify and document your clinical opinion in the progress notes and discharge summary. Terms such as "probable", "suspected", "likely", "questionable", "possible", or "still to be ruled out" are acceptable. IF IN AGREEMENT, YOU MUST DOCUMENT ABOVE DIAGNOSTIC STATEMENT IN DAILY PROGRESS NOTES AND DISCHARGE SUMMARY. This document is not part of the patient's record. Thank You, Corine Wiley RN [phone]
--- NOTE | 2016-11-11 09:00 | Clinical Documentation Query ---
QUERY 1 OF [address] ESPITIA, In your clinical opinion is this patient being managed for: ( x ) Acute and chronic respiratory failure, POA ( ) Other explanation of clinical findings (Please Explain) ( ) Unable to determine (Please Define) ( ) Need to Discuss ( ) Not Agree The medical record reflects the following clinical findings, treatment, and risk factors. Clinical Indicators: 76 yo female presenting with persistent shortness of breath x 2 days. H/P describes pt as being in moderate respiratory distress, using accessory muscles, being tachypneic and increased work of breathing. VS 36.7-108-20 to 24, 138/70, 95% on 4L Treatment: tele, O2 support, duonebs, IV solumedrol, IV levaquin, BIPAP prn, uses chronic home O2. Risk Factors: age, COPD exacerbation, MITCH, obesity, CHF QUERY 2 OF 2 In your clinical opinion is this patient being managed for: ( x ) Chronic diastolic CHF ( ) Other explanation of clinical findings (Please Explain) ( ) Unable to determine (Please Define) ( ) Need to Discuss ( ) Not Agree The medical record reflects the following clinical findings, treatment, and risk factors. Clinical Indicators: Pt noted to have chronic CHF. Review of October 2016 ECHO showed EF of 60-65% Treatment: diltiazem, lasix, HCTZ, cozaar Risk Factors: age, [place], COPD, cardiomyopathy, aortic valve disorder, CAD Please clarify and document your clinical opinion in the progress notes and discharge summary. Terms such as "probable", "suspected", "likely", "questionable", "possible", or "still to be ruled out" are acceptable. IF IN AGREEMENT, YOU MUST DOCUMENT ABOVE DIAGNOSTIC STATEMENT IN DAILY PROGRESS NOTES AND DISCHARGE SUMMARY. This document is not part of the patient's record. Thank You, Corine Wiley, RN [phone]
--- NOTE | 2016-11-11 10:59 | Family Medicine Progress Note ---
Progress Note Date of Service November 11, 2016. Subjective Pt evaluation today including: conversation w/ patient, physical exam, chart review, lab review, review of studies, conversation w/ skin care consultant Pain: well controlled PO Intake: good Voiding: no voiding problems Doing better today. She doesn't seem to feel as anxious and breathing is not as labored. Denies any chest pains, palpitations, abdominal pain, nausea, vomiting. Continues to have a cough but denies any fevers or chills Constitutional: No fever Eyes: No worsening of vision ENT: No hearing loss Respiratory: + cough, + wheezing Cardiovascular: No PND, No chest pain, No orthopnea Abdomen: No pain Musculoskeletal: + joint pain (chronic back pain due to compression fractures) Neurologic: No memory loss Psychiatric: + anxiety, No depression symptoms Heme: No abnormal bleeding/bruising Medications Current Inpatient Medications Medications (Trade) Dose Ordered Sig/Olimpia Route Start Time Stop Time Status Last Admin Dose Admin Enoxaparin Sodium (Lovenox Inj) 40 mg DAILY@1400 SC 11/10/16 14:00 12/10/16 13:59 Acetaminophen (Tylenol Tab) 650 mg Q4H PRN PO 11/10/16 12:15 12/10/16 12:14 Ondansetron HCl (Zofran Inj) 4 mg Q6H PRN IV 11/10/16 12:15 12/10/16 12:14 Nitroglycerin (Nitrostat Tab) 0.4 mg UD PRN SL 11/10/16 12:15 12/10/16 12:14 Polyethylene 17 gm 17 gm DAILY PRN PO 11/10/16 12:15 12/10/16 12:14 Methylprednisolone Sodium Succinate 60 mg/Syringe 0.96 ml @ 1.5 mls/min Q6H IV 11/10/16 16:00 12/10/16 12:14 11/11/16 10:06 1.5 MLS/MIN Levofloxacin/Prmx (Levaquin / D5W/ Premixed D5W) 100 ml @ 100 mls/hr Q24H IV 11/10/16 16:00 11/17/16 12:14 11/10/16 15:35 100 MLS/HR Alprazolam (Xanax Tab) 0.5 mg Q12 PRN PO 11/10/16 13:00 12/10/16 12:59 11/10/16 20:55 0.5 MG Amitriptyline HCl (Elavil Tab) 100 mg HS PO 11/10/16 21:00 12/10/16 20:59 11/10/16 20:50 100 MG Aspirin (Ecotrin Tab) 81 mg DAILY PO 11/11/16 09:00 12/11/16 08:59 11/11/16 08:08 81 MG Baclofen (Lioresal Tab) 10 mg TID PRN PO 11/10/16 13:00 12/10/16 12:59 Clopidogrel Bisulfate (plAVix TAB) 75 mg DAILY PO 11/11/16 09:00 12/11/16 08:59 11/11/16 08:10 75 MG Diltiazem HCl (TIAzac CAP) 120 mg DAILY PO 11/11/16 09:00 12/11/16 08:59 11/11/16 08:10 120 MG Docusate Sodium (coLACE CAP) 100 mg BID PO 11/10/16 21:00 12/10/16 20:59 11/11/16 08:06 100 MG Furosemide (Lasix Tab) 120 mg DAILY PO 11/11/16 09:00 12/11/16 08:59 11/11/16 08:06 120 MG Oxycodone HCl (Oxycontin Tab) 15 mg Q12 PO 11/10/16 21:00 11/24/16 20:59 11/11/16 08:15 15 MG Pantoprazole Sodium (Protonix Tab) 40 mg BID PO 11/10/16 21:00 12/10/16 20:59 11/11/16 08:06 40 MG Simvastatin (Zocor Tab) 10 mg QPM PO 11/10/16 21:00 12/10/16 20:59 11/10/16 20:50 10 MG Topiramate (Topamax Tab) 100 mg DAILY PO 11/11/16 09:00 12/11/16 08:59 11/11/16 08:11 100 MG Acetaminophen/ Butalbital/ Caffeine (Fioricet Tab) 1 tab Q4 PRN PO 11/10/16 13:00 12/10/16 12:59 Miscellaneous Information (Order Awaiting Action) 1 ea QS N/A 11/10/16 16:00 12/10/16 15:59 Miscellaneous Information (Order Awaiting Action) 1 ea QS N/A 11/10/16 16:00 12/10/16 15:59 Hydrochlorothiazide (Hydrochlorothiazide Tab) 12.5 mg DAILY PO 11/11/16 09:00 12/11/16 08:59 11/11/16 08:09 12.5 MG Miscellaneous Information (Order Awaiting Action) 1 ea QS N/A 11/10/16 16:00 12/10/16 15:59 Losartan Potassium (coZAAR TAB) 100 mg DAILY PO 11/11/16 09:00 12/11/16 08:59 11/11/16 08:10 100 MG Ipratropium Elmer (Atrovent 0.02% 0.5MG/2.5ML Neb) 0.5 mg Q6R INH 11/10/16 21:00 12/10/16 20:59 11/11/16 07:20 0.5 MG Levalbuterol (Xopenex 1.25MG/ 0.5ML Neb) 1.25 mg Q6R INH 11/10/16 21:00 12/10/16 20:59 11/11/16 07:20 1.25 MG Oxycodone HCl (Roxicodone Immediate Rel Tab) 5 mg Q4H PRN PO 11/10/16 16:00 11/24/16 15:59 11/11/16 08:12 5 MG Potassium Chloride (Klor-Con Tab) 60 meq BID PO 11/10/16 21:00 12/10/16 20:59 11/11/16 08:07 60 MEQ Objective Vital Signs Date Time Temp Pulse Resp B/P Pulse Ox O2 Delivery O2 Flow Rate FiO2 11/11/16 08:00 98 Nasal Cannula 3.0 11/11/16 07:47 36.3 93 18 113/66 98 11/11/16 07:20 98 20 91 Nasal Cannula 4.0 11/11/16 04:00 BiPAP 11/11/16 03:50 36.3 87 20 149/77 94 BiPAP 11/11/16 02:20 93 20 97 BiPAP/CPAP 4.0 11/11/16 00:00 BiPAP 11/10/16 23:36 36.4 90 20 107/68 97 BiPAP 11/10/16 20:00 BiPAP 11/10/16 19:12 37.3 95 24 148/98 98 BiPAP 11/10/16 16:00 Nasal Cannula 4.0 11/10/16 15:44 36.8 100 20 143/77 95 Nasal Cannula 4.0 11/10/16 14:25 105 22 100 Nasal Cannula 4.0 11/10/16 13:16 36.9 107 22 133/76 94 Nasal Cannula 4.0 11/10/16 12:44 104 20 174/49 96 Nasal Cannula 4.0 11/10/16 12:38 105 11/10/16 11:51 Nasal Cannula 4.0 11/10/16 11:05 108 22 143/59 99 Nasal Cannula 4.0 Physical Exam General Appearance: WD/WN Eyes: normal inspection ENT: hearing grossly normal Neck: no adenopathy Respiratory/Chest: + wheezing Cardiovascular: regular rate, rhythm, no edema Abdomen: normal bowel sounds, non tender, soft Extremities: normal range of motion Neurologic/Psychiatric: alert, normal mood/affect, oriented x 3 Laboratory Results 11/11/16 05:10 Red Blood Count 4.24, Mean Corpuscular Volume 86.6, Mean Corpuscular Hemoglobin 27.4, Mean Corpuscular Hemoglobin Concent 31.6, Mean Platelet Volume 9.0, Neutrophils (%) (Auto) 84.7, Lymphocytes (%) (Auto) 9.7, Monocytes (%) (Auto) 5.3, Eosinophils (%) (Auto) 0.0, Basophils (%) (Auto) 0.0, Neutrophils # (Auto) 5.13, Lymphocytes # (Auto) 0.59, Monocytes # (Auto) 0.32, Eosinophils # (Auto) 0.00, Basophils # (Auto) 0.00 11/11/16 05:10 Test 11/10/16 12:50 11/11/16 05:10 Arterial Blood pH 7.45 (7.35-7.45) Arterial Blood Partial Pressure CO2 44 mmHg (35-46) Arterial Blood Partial Pressure O2 100 mm/Hg (80-95) Arterial Blood HCO3 30 mmol/L (19-24) Arterial Blood Oxygen Saturation 97.7 % (90-95) Arterial Blood Base Excess 4.9 mEq/L (-9-1.8) Arterial Blood Gas Delivery 4L Pedro Test POS (POS) White Blood Count 6.06 K/uL (4.8-10.8) Red Blood Count 4.24 M/uL (4.2-5.4) Hemoglobin 11.6 g/dL (12.0-16.0) Hematocrit 36.7 % (37-47) Mean Corpuscular Volume 86.6 fL (80-100) Mean Corpuscular Hemoglobin 27.4 pg (25-34) Mean Corpuscular Hemoglobin Concent 31.6 g/dl (32-36) Platelet Count 284 K/uL (130-400) Mean Platelet Volume 9.0 fL (7.4-10.4) Neutrophils (%) (Auto) 84.7 % Lymphocytes (%) (Auto) 9.7 % Monocytes (%) (Auto) 5.3 % Eosinophils (%) (Auto) 0.0 % Basophils (%) (Auto) 0.0 % Neutrophils # (Auto) 5.13 K/uL (1.4-6.5) Lymphocytes # (Auto) 0.59 K/uL (1.2-3.4) Monocytes # (Auto) 0.32 K/uL (0.11-0.59) Eosinophils # (Auto) 0.00 K/uL (0-0.5) Basophils # (Auto) 0.00 K/uL (0-0.2) RDW Standard Deviation 43.9 fL (36.4-46.3) RDW Coefficient of Variation 13.9 % (11.5-14.5) Immature Granulocyte % (Auto) 0.3 % Immature Granulocyte # (Auto) 0.02 K/uL (0.00-0.02) Anion Gap 5.0 mmol/L (3-11) Est Creatinine Clear Calc Drug Dose 69.9 ml/min Estimated GFR () 98.9 Estimated GFR (Non- 85.4 BUN/Creatinine Ratio 23.2 (10-20) Calcium Level 8.6 mg/dl (8.5-10.1) Magnesium Level 2.4 mg/dl (1.8-2.4) Assessment and Plan Acute on chronic COPD Exacerbation CXR negative - DuoNeb's every 6 hours daily, and every 2 hours for shortness of breath or wheezing - Solumedrol 60 mg q6h - levaquin 500 mg qd - Echocardiogram : 10/23 * Normal biventricular systolic function. * Mild concentric left ventricular hypertrophy. * Left ventricular diastolic dysfunction. * Mild left atrial dilatation. * No significant valvular abnormalities. - CT chest:10/24 1. No acute intrathoracic findings. 2. Moderate emphysema. 3. No thoracic lymphadenopathy. 4. Severe T4 compression fracture which is old. Vertebral body height loss has significantly increased since CT of May 13, 2016. Healing fracture through the spinous process of the T4 vertebra. - Doppler ultrasound negative - Continue home inhalers and BiPAP - Tessalon Perles for cough Hyperglycemia: Likely steroid-induced - No history of diabetes - Check hemoglobin A1c in a.m. - ISS with Accu-Cheks Congestive heart failure - Continue Lasix 120 mg daily with potassium supplementation Coronary artery disease - Continue aspirin, Plavix, simvastatin - continue diltiazem Hypertension - Continue Hyzaar Chronic Back Pain - Secondary to vertebral Compression fracture - Continue Flexeril - Continue oxycodone Anxiety - Continue Xanax DVT prophylaxis: Lovenox which the patient has been refusing due to bruising Disposition: admitted to telemetry Resident Tracking Resident Involvement: Resident Care Provided Care Provided: Adult Hospital Medicine Reviewed: Pt Seen/Exam by Me History Resident Physician Supervision Note: I interviewed and examined the patient. Discussed with Dr. Austin and agree with findings and plan as documented in the note. Any exceptions or clarifications are listed here: Patient feeling better today, has no complaints other than shortness of breath. Vital signs reviewed Morbidly obese, in no acute distress Regular rate and rhythm, no murmurs gallops or rubs Decreased breath sounds throughout, no audible wheezing today Abdomen positive bowel sounds, morbidly obese, soft, nontender, nondistended Extremities right greater than left trace pitting edema which she says is chronic for her Skin no rashes 76-year-old female with multiple medical problems here with recurrent acute exacerbation of COPD. ABG with no evidence of significant hypercarbia or acidosis. -IV steroids and taper down as able to to her home dose of prednisone 10 mg daily -Nebulizers scheduled around the clock and she will bring in her home inhalers which are long-acting beta agonist with inhaled corticosteroid and long-acting muscarinic antagonist -Continue Levaquin 500 milligrams IV daily for severe exacerbation of COPD -Appreciate pulmonology consultation -BiPAP when necessary -Continue home medications for all other conditions -Lovenox for DVT prophylaxis, however patient is refusing this due to multiple bruises on her abdomen from previous admission-we'll order SCDs Documented By: Jazmin Karimi
[2016-11-11] MEDS: BENZONATATE 100MG CAP PO SCH ×2 (13:55→20:30)
[2016-11-11] MEDS: ENOXAPARIN 40 MG/0.4 ML SYR SC SCH (13:55)
--- NOTE | 2016-11-11 16:11 | PROGRESS NOTE ---
DATE: 11/11/2016 DATE: 11/11/2016. PROBLEM LIST: Includes: 1. Chronic obstructive pulmonary disease with exacerbation. 2. Obstructive sleep apnea for which she is on BiPAP. 3. Obesity. 4. Coronary artery disease. SUBJECTIVE: The patient reports that her breathing is slightly better today. She is not having as much tightness or heaviness. She still is getting out of breath with exertion, but she is not too far off her baseline. She has no chest pain or painful respirations at this time. She does have some wheezing on occasion. No sweats, no fevers, no chills, no palpitations, no GI symptoms. No nausea or vomiting, no indigestion or heartburn. She has no other complaints or problems. OBJECTIVE: GENERAL: The patient is a 76-year-old female lying in bed in no acute distress. She is alert and oriented x3. Mood is good. Affect is good. VITAL SIGNS: Temp 36.8, pulse 94, respirations 18, blood pressure is 143/71, pulse ox 97% on 4 liters. HEAD, EYES, EARS, NOSE, AND THROAT: Normocephalic, atraumatic. Pupils equal, round and reactive to light and accommodation. Extraocular movements are intact. Florence-Graham moist gingival and buccal mucosa. NECK: Supple. There is no mass. No adenopathy. No bruit. CHEST: Diminished. The patient does have a few scattered wheezes throughout. No rales or rhonchi noted. CARDIOVASCULAR: Regular rate and rhythm. No murmurs, gallops or rubs. ABDOMEN: Obese, soft, nontender. No guarding, rigidity or organomegaly. EXTREMITIES: No erythema, +1 edema with the right leg being a little bit larger than left. NEUROLOGIC: Cranial nerves II through XII are intact. No focal deficit. LABORATORY DATA: Shows a white count of 6,000, H\T\H 11.6 and 36.7, platelet count 284,000. BUN 16, creatinine 0.7. Blood cultures pending. The patient had a venous Doppler bilaterally. No evidence of DVT. Chest x-ray on admission shows no evidence of pneumonia. IMPRESSION: This is a 76-year-old female who I follow in the office as an outpatient with fairly severe COPD, which is oxygen dependent, who presented with exacerbation. At this time, she is on appropriate medications. I would recommend to continue her Solu-Medrol as it currently is. Would recommend to continue antibiotic as currently is. Will check and see if she has anything for cough. I think that may be helpful for her. Otherwise, we will continue to follow through hospitalization. I think if she remains stable over the next 24 hours we can start decreasing her steroids at that time. She is agreeable to this.
[2016-11-11] MEDS: INSULIN ASPART 100 UNITS/ML 3 ML PEN SC SCH ×2 (16:15→20:33)
[2016-11-11] MEDS ORDERED: GLUCOSE 10 TABS/TUBE PO PRN (16:15)
[2016-11-11] MEDS ORDERED: GLUCOSE 40% GEL 15 GM TUBE PO PRN (16:15)
[2016-11-11] MEDS ORDERED: GLUCAGON FOR INJ 1 MG VIAL SQ PRN (16:15)
[2016-11-11] MEDS ORDERED: DEXTROSE 50% 50 ML SYR IV PRN (16:15)
[2016-11-11] MEDS: LEVOFLOXACIN / D5W 500 MG in PREMIXED IN D5W 100 ML IV SCH (16:48)
[2016-11-11] MEDS: ALPRAZOLAM 0.5 MG TAB PO PRN (20:27)
[2016-11-11] MEDS: AMITRIPTYLINE HCL 100 MG TAB PO SCH (20:28)
[2016-11-11] MEDS: SIMVASTATIN 10 MG TAB PO SCH (20:30)
[2016-11-12] VITALS (11 sets, daily range): BP systolic 109–160; BP diastolic 68–78; PULSE 82–115; TEMP 36.5–36.8; O2SAT 96–99
[2016-11-12] MEDS: LEVALBUTEROL 1.25MG/0.5ML NEB INH SCH ×4 (02:12→19:05)
[2016-11-12] MEDS: IPRATROPIUM BROMIDE NEB SOLN 0.02% 2.5 ML VIAL INH SCH ×4 (02:12→19:05)
[2016-11-12] MEDS: METHYLPREDNISOLONE IV 60 MG in SYRINGE 0 ML IV SCH (03:55)
[2016-11-12 07:43] LABS: ESTIMATED AVERAGE GLUCOSE 143 mg/dl; HA1C FLAG Normal (Normal)
[2016-11-12] MEDS: HYDROCHLOROTHIAZIDE 25 MG TAB PO SCH (07:49)
[2016-11-12] MEDS: FUROSEMIDE 40 MG TAB PO SCH (07:49)
[2016-11-12] MEDS: POTASSIUM CHLORIDE 20 MEQ TABCR PO SCH ×2 (07:50→20:13)
[2016-11-12] MEDS: BENZONATATE 100MG CAP PO SCH ×3 (07:50→20:14)
[2016-11-12] MEDS: PANTOprazole SOD 40 MG TAB PO SCH ×2 (07:51→20:14)
[2016-11-12] MEDS: ASPIRIN 81 MG ECTAB PO SCH (07:51)
[2016-11-12] MEDS: DOCUSATE SODIUM 100 MG CAP PO SCH ×2 (07:51→20:14)
[2016-11-12] MEDS: CLOPIDOGREL BISULFATE 75 MG TAB PO SCH (07:51)
[2016-11-12] MEDS: LOSARTAN POTASSIUM 50 MG TAB PO SCH (07:52)
[2016-11-12] MEDS: TOPIRAMATE 100 MG TAB PO SCH (07:54)
[2016-11-12] MEDS: DILTIAZEM HCL 120 MG EXT REL CAP PO SCH (07:54)
[2016-11-12] MEDS: OXYCODONE HCL 15 MG TABCR (OXYCONTIN) PO SCH ×2 (07:54→20:18)
[2016-11-12] MEDS: INSULIN ASPART 100 UNITS/ML 3 ML PEN SC SCH ×4 (07:57→20:20)
[2016-11-12 09:00] LABS: CALCIUM 8.9 mg/dl (8.5-10.1); CREATININE 0.63 mg/dl (0.60-1.20); POTASSIUM 3.4 mmol/L (3.5-5.1)
--- NOTE | 2016-11-12 09:52 | PULMONARY PROGRESS NOTE ---
DATE: 11/12/2016 DATE: 11/12/2016. TIME: 9:25 a.m. SUBJECTIVE: The patient feels slightly better than on admission, but not a whole lot. She still remains short of breath with any exertion. At times she will put her BiPAP on during the day to give her some relief. She denies any chest pains. Her appetite is good. She actually was munching on candy when I was seeing her. OBJECTIVE: GENERAL: The patient appeared comfortable at rest. VITAL SIGNS: Temperature is 36.5. NECK: She has a large neck. EARS, NOSE, THROAT: Exam is otherwise unchanged. HEART: Heart rate is 100 per minute. The rhythm is regular. Blood pressure 145/72. LUNGS: Chen reveal severely diminished breath sounds. I did not hear any wheezing today. I believe this reflects some improvement. Her saturation is 98% on 4 liters. ABDOMEN: Obese. It was soft and nontender. EXTREMITIES: Showed no edema, although the right lower extremity again remains slightly larger than the left. She did have Dopplers done which were negative. LABORATORY DATA: Electrolytes today show sodium 139, potassium 3.4, chloride 103, bicarbonate 28. IMPRESSIONS: 1. Chronic obstructive pulmonary disease with exacerbation. 2. Obstructive sleep apnea. 3. Obesity. 4. Coronary artery disease. COMMENTS AND RECOMMENDATIONS: I believe the patient is somewhat improved. I believe we can start to taper the methylprednisolone. Her sugars have been elevated. Currently, the methylprednisolone is at 60 mg IV q. 6 hours. I am going to change that to 40 mg IV q. 8 hours. Hopefully, this will benefit her diabetic problems. Would continue with the other treatments as present.
--- NOTE | 2016-11-12 10:08 | Hospitalist Progress Note ---
Hospitalist Progress Note Date of Service November 12, 2016. Subjective Pt evaluation today including: conversation w/ patient Doing fairly well, still SOLIS, making urine, feels a little better than on admission. No events on tele, remains in NSR Constitutional: No fever Respiratory: + dyspnea on exertion, + shortness of breath Cardiovascular: No chest pain All Other Systems: Reviewed and Negative Objective Vital Signs Date Time Temp Pulse Resp B/P Pulse Ox O2 Delivery O2 Flow Rate FiO2 11/12/16 08:13 36.5 101 20 145/72 98 Nasal Cannula 4.0 11/12/16 08:00 98 Nasal Cannula 3.0 11/12/16 07:07 98 20 97 Nasal Cannula 4.0 11/12/16 04:00 36.6 90 22 147/74 99 CPAP 11/12/16 04:00 Nasal Cannula 4.0 Humidified Oxygen 11/12/16 02:12 87 20 98 BiPAP/CPAP 4.0 11/12/16 00:00 Nasal Cannula 4.0 Humidified Oxygen 11/11/16 23:59 36.6 86 20 137/76 95 Room Air 11/11/16 20:54 86 20 96 Nasal Cannula 4.0 11/11/16 20:00 Nasal Cannula 4.0 Humidified Oxygen 11/11/16 18:53 36.9 82 21 124/74 100 Nasal Cannula 4.0 Humidified Oxygen 11/11/16 16:00 98 Nasal Cannula 3.0 11/11/16 15:41 36.8 89 19 118/69 93 Nasal Cannula 4.0 11/11/16 14:24 97 20 95 Nasal Cannula 4.0 11/11/16 12:11 36.8 94 18 143/71 97 Nasal Cannula 4.0 11/11/16 12:00 98 Nasal Cannula 3.0 Physical Exam General Appearance: WD/WN, no apparent distress, + obese Eyes: normal inspection, sclerae normal ENT: hearing grossly normal Neck: trachea midline Respiratory/Chest: normal breath sounds, no respiratory distress, no accessory muscle use, + decreased breath sounds (throughout but slightly improved from previous) Cardiovascular: regular rate, rhythm, no edema, + systolic murmur (2/6 RITA at [facility]) Abdomen: normal bowel sounds, non tender, soft Extremities: non-tender, no pedal edema, no calf tenderness Neurologic/Psychiatric: alert, normal mood/affect, oriented x 3 Skin: normal color, warm/dry, no rash Laboratory Results Last 24 Hours Test 11/11/16 16:54 11/11/16 19:55 11/12/16 05:34 11/12/16 06:41 Bedside Glucose 185 mg/dl 194 mg/dl 180 mg/dl Sodium Level 139 mmol/L Potassium Level 3.4 mmol/L Chloride Level 103 mmol/L Carbon Dioxide Level 28 mmol/L Anion Gap 8.0 mmol/L Blood Urea Nitrogen 18 mg/dl Creatinine 0.63 mg/dl Est Creatinine Clear Calc Drug Dose 77.8 ml/min Estimated GFR () 102.4 Estimated GFR (Non- 88.4 BUN/Creatinine Ratio 29.0 Random Glucose 182 mg/dl Estimated Average Glucose 143 mg/dl Hemoglobin A1c 6.6 % Calcium Level 8.9 mg/dl Assessment and Plan 76-year-old female with multiple medical problems here with recurrent acute exacerbation of COPD. ABG with no evidence of significant hypercarbia or acidosis. Acute on chronic COPD Exacerbation/MITCH CXR negative - DuoNeb's every 6 hours daily, and every 2 hours for shortness of breath or wheezing - Solumedrol 60 mg q8h taper down as able to -continue levaquin 500 mg qd for 7 day course for severe AECOPD - CT chest:10/24 1. No acute intrathoracic findings. 2. Moderate emphysema. 3. No thoracic lymphadenopathy. 4. Severe T4 compression fracture which is old. Vertebral body height loss has significantly increased since CT of May 13, 2016. Healing fracture through the spinous process of the T4 vertebra. - Doppler ultrasound negative for bilat DVT - Continue home inhalers Incruse, Breo when brought in and BiPAP -Appreciate pulmonology consultation Hyperglycemia: Likely [id number] A1C 6.6% indicates new dx of DM - No history of diabetes diagnosed previously - ISS with Accu-Cheks -will start metformin on discharge and consult CDE on Monday CHronic diastolic Congestive heart failure-stable - Echocardiogram : 10/23 * Normal biventricular systolic function. * Mild concentric left ventricular hypertrophy. * Left ventricular diastolic dysfunction. * Mild left atrial dilatation. * No significant valvular abnormalities - Continue Lasix 120 mg daily with potassium supplementation Coronary artery disease-stable, nonobstructive CAD on cath in 2005, Dobutamine stress normal 2014 - Continue aspirin, Plavix, simvastatin Hypertension-controlled - Continue Hyzaar , diltiazem Chronic Back Pain - Secondary to vertebral Compression fracture - Continue Flexeril - Continue oxycodone Anxiety-stable - Continue Xanax -consider starting SSRI in future for anxiety related to COPD DVT prophylaxis: Lovenox which the patient has been refusing due to bruising SCDs Disposition: stable for tx to medical floor
[2016-11-12] MEDS: METHYLPREDNISOLONE IV 40 MG in SYRINGE 0 ML IV SCH ×2 (13:59→21:59)
[2016-11-12] MEDS: ENOXAPARIN 40 MG/0.4 ML SYR SC SCH (14:00)
[2016-11-12] MEDS: ACETAMINOPHEN 325 MG TAB PO PRN (14:20)
[2016-11-12] MEDS: LEVOFLOXACIN / D5W 500 MG in PREMIXED IN D5W 100 ML IV SCH (16:41)
[2016-11-12] MEDS: AMITRIPTYLINE HCL 100 MG TAB PO SCH (20:15)
[2016-11-12] MEDS: SIMVASTATIN 10 MG TAB PO SCH (20:15)
[2016-11-13] VITALS (7 sets, daily range): BP systolic 123–161; BP diastolic 55–88; PULSE 77–100; TEMP 36.4–36.9; O2SAT 98–99
[2016-11-13] MEDS: LEVALBUTEROL 1.25MG/0.5ML NEB INH SCH ×4 (02:10→20:30)
[2016-11-13] MEDS: IPRATROPIUM BROMIDE NEB SOLN 0.02% 2.5 ML VIAL INH SCH ×4 (02:10→19:45)
[2016-11-13] MEDS: METHYLPREDNISOLONE IV 40 MG in SYRINGE 0 ML IV SCH (05:33)
[2016-11-13 06:38] LABS: BASO % 0.1 %; BASO ABS # 0.01 K/uL (0-0.2); COMPLETE YES; HEMATOCRIT 37.3 % (37-47); IG% 0.4 %; LYMPH % 5.7 %; LYMPH ABS # 0.61 K/uL (1.2-3.4); MEAN CELL VOLUME 84.6 fL (80-100); MEAN CORPUSCULAR HEMOGLOBIN 26.1 pg (25-34); MEAN CORPUSCULAR HGB CONC 30.8 g/dl (32-36); MEAN PLATELET VOLUME 8.8 fL (7.4-10.4); MONO % 4.3 %; NEUT % 89.5 %; PLATELET COUNT 300 K/uL (130-400); RED BLOOD COUNT 4.41 M/uL (4.2-5.4); WHITE BLOOD COUNT 10.67 K/uL (4.8-10.8)
[2016-11-13 07:31] LABS: BUN/CREATININE RATIO 34.4 (10-20); CALCIUM 8.2 mg/dl (8.5-10.1); CREATININE 0.7 mg/dl (0.60-1.20); MAGNESIUM 2.7 mg/dl (1.8-2.4)
[2016-11-13] MEDS: DILTIAZEM HCL 120 MG EXT REL CAP PO SCH (08:17)
[2016-11-13] MEDS: FUROSEMIDE 40 MG TAB PO SCH (08:18)
[2016-11-13] MEDS: ASPIRIN 81 MG ECTAB PO SCH (08:18)
[2016-11-13] MEDS: POTASSIUM CHLORIDE 20 MEQ TABCR PO SCH ×2 (08:18→20:09)
[2016-11-13] MEDS: PANTOprazole SOD 40 MG TAB PO SCH ×2 (08:19→20:10)
[2016-11-13] MEDS: LOSARTAN POTASSIUM 50 MG TAB PO SCH (08:19)
[2016-11-13] MEDS: BENZONATATE 100MG CAP PO SCH ×3 (08:19→20:10)
[2016-11-13] MEDS: CLOPIDOGREL BISULFATE 75 MG TAB PO SCH (08:20)
[2016-11-13] MEDS: DOCUSATE SODIUM 100 MG CAP PO SCH ×2 (08:20→20:08)
[2016-11-13] MEDS: HYDROCHLOROTHIAZIDE 25 MG TAB PO SCH (08:20)
[2016-11-13] MEDS: UMECLIDINIUM BROMIDE 62.5MCG/INH INH SCH (08:21)
[2016-11-13] MEDS: FLUTICASONE FUROATE-VILANTEROL 30 PUFFS/INHALER INH INH SCH (08:21)
[2016-11-13] MEDS: TOPIRAMATE 100 MG TAB PO SCH (08:23)
[2016-11-13] MEDS: ENOXAPARIN 40 MG/0.4 ML SYR SC SCH (08:27)
[2016-11-13] MEDS: OXYCODONE HCL 15 MG TABCR (OXYCONTIN) PO SCH ×2 (08:27→20:28)
[2016-11-13] MEDS: INSULIN ASPART 100 UNITS/ML 3 ML PEN SC SCH ×4 (08:30→20:53)
--- NOTE | 2016-11-13 08:50 | PULMONARY PROGRESS NOTE ---
DATE: 11/13/2016 TIME: 7:00 a.m. SUBJECTIVE: The patient had a good night. She slept well. She states she is generally comfortable unless she moves. When she is perfectly still, she is fine. She was just awakening this morning. She is not coughing much. Her appetite is good. She states her bowels are moving. OBJECTIVE: GENERAL: The patient appears comfortable. VITAL SIGNS: Temperature is 36.4. Heart rate was 80 per minute. It was regular. Blood pressure is 123/69. LUNGS: Lung barkley revealed diminished breath sounds. I did not hear wheezing today. There was some prolongation to the expiratory phase of respiration. Her respiratory rate was 22 breaths per minute which is a little higher than her usual. However, she was just taking BiPAP off and I believe there was a brief period of readapting to the BiPAP being off. ABDOMEN: Obese. It was nontender. Good bowel sounds were heard. EXTREMITIES: Showed no cyanosis, clubbing or edema. LABORATORY DATA: White count is 10.67. Hemoglobin is 11.5. Platelets are 300,000. Chemistry profile is pending. Blood cultures have shown no growth. IMPRESSIONS: 1. Chronic obstructive pulmonary disease with exacerbation -- improved. 2. Obstructive sleep apnea. 3. Obesity. 4. Coronary artery disease. COMMENTS AND RECOMMENDATIONS: The patient seems to be clinically improving. I am going to cut her steroids back farther. She is currently on 40 mg IV q. 8 hours. I am going to cut down to 20 mg q. 12 hours. We would continue with her other medicines. The patient should be ambulated somewhat. Overall, she seems improved.
[2016-11-13] MEDS: LEVOFLOXACIN / D5W 500 MG in PREMIXED IN D5W 100 ML IV SCH (16:10)
[2016-11-13] MEDS: METHYLPREDNISOLONE IV 20 MG in SYRINGE 0 ML IV SCH (17:35)
[2016-11-13] MEDS: AMITRIPTYLINE HCL 100 MG TAB PO SCH (20:11)
[2016-11-13] MEDS: SIMVASTATIN 10 MG TAB PO SCH (20:11)
[2016-11-13] MEDS: ACETAMINOPHEN 325 MG TAB PO PRN (20:28)
[2016-11-13] MEDS: ALPRAZOLAM 0.5 MG TAB PO PRN (20:28)
--- NOTE | 2016-11-13 23:02 | Hospitalist Progress Note ---
Hospitalist Progress Note Date of Service November 13, 2016. Subjective Pt evaluation today including: conversation w/ patient Patient feeling improvement, she is still short of breath with walking to the bathroom and back. No chest pains All Other Systems: Reviewed and Negative Objective Vital Signs Date Time Temp Pulse Resp B/P Pulse Ox O2 Delivery O2 Flow Rate FiO2 11/13/16 20:00 Nasal Cannula 4.0 CPAP 11/13/16 19:45 91 18 98 Nasal Cannula 4.0 11/13/16 16:23 Nasal Cannula 4.0 11/13/16 15:08 36.9 88 20 144/55 98 Nasal Cannula 4.0 11/13/16 14:12 91 18 98 Nasal Cannula 4.0 11/13/16 08:30 Nasal Cannula 4.0 11/13/16 07:32 36.8 100 20 161/88 99 Nasal Cannula 4.0 11/13/16 07:24 88 18 98 Nasal Cannula 4.0 11/13/16 02:10 80 18 98 BiPAP/CPAP 4.0 11/13/16 00:21 36.4 77 20 123/69 98 CPAP 11/12/16 23:15 CPAP 4.0 Physical Exam General Appearance: WD/WN, no apparent distress, + obese Eyes: normal inspection, sclerae normal ENT: hearing grossly normal Neck: trachea midline Respiratory/Chest: no respiratory distress, no accessory muscle use, + decreased breath sounds (throughout due to morbid obese body habitus) Cardiovascular: regular rate, rhythm, no edema, no murmur Abdomen: normal bowel sounds, non tender, soft, no organomegaly Extremities: no pedal edema, no calf tenderness Neurologic/Psychiatric: alert, normal mood/affect, oriented x 3 Skin: normal color, warm/dry, no rash Laboratory Results Last 24 Hours Test 11/13/16 05:42 11/13/16 07:52 11/13/16 11:15 11/13/16 16:38 White Blood Count 10.67 K/uL Red Blood Count 4.41 M/uL Hemoglobin 11.5 g/dL Hematocrit 37.3 % Mean Corpuscular Volume 84.6 fL Mean Corpuscular Hemoglobin 26.1 pg Mean Corpuscular Hemoglobin Concent 30.8 g/dl Platelet Count 300 K/uL Mean Platelet Volume 8.8 fL Neutrophils (%) (Auto) 89.5 % Lymphocytes (%) (Auto) 5.7 % Monocytes (%) (Auto) 4.3 % Eosinophils (%) (Auto) 0.0 % Basophils (%) (Auto) 0.1 % Neutrophils # (Auto) 9.55 K/uL Lymphocytes # (Auto) 0.61 K/uL Monocytes # (Auto) 0.46 K/uL Eosinophils # (Auto) 0.00 K/uL Basophils # (Auto) 0.01 K/uL RDW Standard Deviation 43.3 fL RDW Coefficient of Variation 13.9 % Immature Granulocyte % (Auto) 0.4 % Immature Granulocyte # (Auto) 0.04 K/uL Sodium Level 140 mmol/L Potassium Level 4.0 mmol/L Chloride Level 105 mmol/L Carbon Dioxide Level 29 mmol/L Anion Gap 6.0 mmol/L Blood Urea Nitrogen 24 mg/dl Creatinine 0.70 mg/dl Est Creatinine Clear Calc Drug Dose 69.2 ml/min Estimated GFR () 98.9 Estimated GFR (Non- 85.4 BUN/Creatinine Ratio 34.4 Random Glucose 158 mg/dl Calcium Level 8.2 mg/dl Magnesium Level 2.7 mg/dl Bedside Glucose 148 mg/dl 219 mg/dl 135 mg/dl Test 11/13/16 20:16 Bedside Glucose 174 mg/dl Assessment and Plan 76-year-old female with multiple medical problems here with recurrent acute exacerbation of COPD. ABG with no evidence of significant hypercarbia or acidosis. Acute on chronic COPD Exacerbation/MITCH-significantly improved since admission CXR negative - DuoNeb's every 6 hours daily, and every 2 hours for shortness of breath or wheezing - Solumedrol taper down as able to 2 long slow taper of prednisone -continue levaquin 500 mg qd for 7 day course for severe AECOPD-today day #4 - CT chest:10/24 1. No acute intrathoracic findings. 2. Moderate emphysema. 3. No thoracic lymphadenopathy. 4. Severe T4 compression fracture which is old. Vertebral body height loss has significantly increased since CT of May 13, 2016. Healing fracture through the spinous process of the T4 vertebra. - Doppler ultrasound negative for bilat DVT - Continue home inhalers Incruse, Breo ,and BiPAP when necessary and daily at bedtime -Appreciate pulmonology consultation Hyperglycemia: Likely ynjshxf-[id number] A1C 6.6% indicates new dx of DM type [id number] -Glucose checks here ranging from 130s to 230s - No history of diabetes diagnosed previously - ISS with Accu-Cheks -Can start metformin on discharge and consult CDE on Monday CHronic diastolic Congestive heart failure-stable - Echocardiogram : 10/23 * Normal biventricular systolic function. * Mild concentric left ventricular hypertrophy. * Left ventricular diastolic dysfunction. * Mild left atrial dilatation. * No significant valvular abnormalities - Continue Lasix 120 mg daily with potassium supplementation Coronary artery disease-stable, nonobstructive CAD on cath in 2005, Dobutamine stress normal 2014 - Continue aspirin, Plavix, simvastatin Hypertension-controlled - Continue Hyzaar , diltiazem Chronic Back Pain - Secondary to vertebral Compression fracture - Continue Flexeril - Continue oxycodone Anxiety-stable - Continue Xanax -consider starting SSRI in future for anxiety related to COPD DVT prophylaxis: Lovenox which the patient has been refusing due to bruising SCDs Disposition: To home when able May benefit from PT evaluation
[2016-11-14] VITALS (7 sets, daily range): BP systolic 108–133; BP diastolic 72–79; PULSE 73–96; TEMP 36.5–36.6; O2SAT 97–100
[2016-11-14] MEDS: IPRATROPIUM BROMIDE NEB SOLN 0.02% 2.5 ML VIAL INH SCH ×4 (01:50→19:18)
[2016-11-14] MEDS: LEVALBUTEROL 1.25MG/0.5ML NEB INH SCH ×4 (01:50→19:18)
[2016-11-14] MEDS: METHYLPREDNISOLONE IV 20 MG in SYRINGE 0 ML IV SCH (05:32)
[2016-11-14] MEDS: ENOXAPARIN 40 MG/0.4 ML SYR SC SCH (06:51)
[2016-11-14 07:29] LABS: BUN/CREATININE RATIO 31.9 (10-20); CALCIUM 8.4 mg/dl (8.5-10.1); CREATININE 0.83 mg/dl (0.60-1.20); POTASSIUM 3.7 mmol/L (3.5-5.1)
[2016-11-14] MEDS: FLUTICASONE FUROATE-VILANTEROL 30 PUFFS/INHALER INH INH SCH (08:04)
[2016-11-14] MEDS: UMECLIDINIUM BROMIDE 62.5MCG/INH INH SCH (08:04)
[2016-11-14] MEDS: TOPIRAMATE 100 MG TAB PO SCH (08:06)
[2016-11-14] MEDS: HYDROCHLOROTHIAZIDE 25 MG TAB PO SCH (08:06)
[2016-11-14] MEDS: DOCUSATE SODIUM 100 MG CAP PO SCH ×2 (08:06→20:09)
[2016-11-14] MEDS: DILTIAZEM HCL 120 MG EXT REL CAP PO SCH (08:06)
[2016-11-14] MEDS: LOSARTAN POTASSIUM 50 MG TAB PO SCH (08:06)
[2016-11-14] MEDS: BENZONATATE 100MG CAP PO SCH ×3 (08:06→20:07)
[2016-11-14] MEDS: ASPIRIN 81 MG ECTAB PO SCH (08:06)
[2016-11-14] MEDS: CLOPIDOGREL BISULFATE 75 MG TAB PO SCH (08:07)
[2016-11-14] MEDS: POTASSIUM CHLORIDE 20 MEQ TABCR PO SCH ×2 (08:07→20:09)
[2016-11-14] MEDS: PANTOprazole SOD 40 MG TAB PO SCH ×2 (08:07→20:08)
[2016-11-14] MEDS: FUROSEMIDE 40 MG TAB PO SCH (08:07)
[2016-11-14] MEDS: OXYCODONE HCL 15 MG TABCR (OXYCONTIN) PO SCH ×2 (08:07→20:07)
[2016-11-14] MEDS: ALPRAZOLAM 0.5 MG TAB PO PRN ×2 (08:09→20:12)
[2016-11-14] MEDS: INSULIN ASPART 100 UNITS/ML 3 ML PEN SC SCH ×4 (09:14→20:34)
--- NOTE | 2016-11-14 15:21 | Pharmacy Progress Note ---
Automatic IV to PO Conversion Date of Service: November 14, 2016. [facility] has identified patient as an appropriate candidate for automatic intravenous to oral conversion. Eligible medication: LVQ IV every 24 hours. Day # 5 of IV therapy. Subjective The patient is a 76 year old female admitted on November 10, 2016 at 12:19 for SOB. Objective Vital Signs: Vital Signs Past 12 Hours Date Time Temp Pulse Resp B/P Pulse Ox O2 Delivery O2 Flow Rate FiO2 11/14/16 14:21 96 18 97 Nasal Cannula 4.0 11/14/16 09:25 Nasal Cannula 4.0 11/14/16 07:27 73 20 133/79 98 Nasal Cannula 4.0 11/14/16 07:14 73 18 98 BiPAP/CPAP 4.0 Height (Feet): 5 Height (Inches): 0.00 Weight (Kilograms): 85.200 Type of Diet: AHA Phase I Assessment & Plan The Infectious Disease Society and the [place] [employer] recommend conversion to oral therapy once a patient is determined to be clinically stable and are able to tolerate oral medications. Patient identified as appropriate candidate for IV to PO conversion of LVQ 500mg DAILY based on the following criteria: * Afebrile for greater than or equal to 12 hours * Receiving oral/enteral medications and/or tolerating oral/enteral diet for greater than 24 hours * Improvement in clinical condition evidenced by .. WBC count of 10.67 10^3/uL and trending downward, resolution of signs/symptoms of illness * Hemodynamically stable or * Receiving oral medications and/or tolerating oral diet for greater than 24 hours * Patient does not meet criteria for use of intravenous proton pump inhibitors ( negative for GI bleed, hypersecretory conditions, GERD associated with erosive esophagitis & unable to take PO) Automatic conversion to: LVQ 500mg PO every 24 hours
[2016-11-14] MEDS: LEVOFLOXACIN 500 MG TAB PO SCH (16:52)
--- NOTE | 2016-11-14 17:50 | Family Medicine Progress Note ---
Progress Note Date of Service November 14, 2016. Subjective Pt evaluation today including: conversation w/ patient, physical exam, chart review, lab review, review of studies Pain: 0/10 PO Intake: WNL Voiding: no voiding problems Ongoing imrpovement, dyspnea is back to BL but patient is anxious for d/c home because of readmission Would prefer another stay overnight Constitutional: No fever Eyes: No worsening of vision ENT: No hearing loss Respiratory: + cough, + dyspnea at rest, + dyspnea on exertion, + shortness of breath, + wheezing, No sputum Cardiovascular: No chest pain Musculoskeletal: No joint pain, No muscle pain Female : No dysuria Neurologic: + weakness, No balance problems Psychiatric: No depression symptoms Heme: No abnormal bleeding/bruising Endo: + fatigue Medications Medications Administered Medications (Trade) Dose Ordered Sig/Olimpia Route Start Time Stop Time Status Last Admin Dose Admin Levalbuterol (Xopenex 1.25MG/ 0.5ML Neb) 1.25 mg NOW STAT INH 11/10/16 08:55 11/10/16 08:59 DC 11/10/16 09:11 1.25 MG Ipratropium [place] (Atrovent 0.02% 0.5MG/2.5ML Neb) 0.5 mg NOW STAT INH 11/10/16 08:55 11/10/16 08:59 DC 11/10/16 09:11 0.5 MG Methylprednisolone Sodium Succinate (Solu-Medrol IV) 80 mg NOW STAT IV 11/10/16 08:55 11/10/16 08:59 DC 11/10/16 09:14 80 MG Ceftriaxone Sodium (Rocephin Inj) 1 gm NOW STAT IV 11/10/16 08:55 11/10/16 08:59 DC 11/10/16 09:14 1 GM Acetaminophen 650 mg 650 mg Q4H PRN PO 11/10/16 12:15 12/10/16 12:14 11/13/16 20:28 650 MG Methylprednisolone Sodium Succinate 60 mg/Syringe 0.96 ml @ 1.5 mls/min Q6H IV 11/10/16 16:00 11/12/16 09:30 DC 11/12/16 03:55 1.5 MLS/MIN Levofloxacin/Prmx (Levaquin / D5W/ Premixed D5W) 100 ml @ 100 mls/hr Q24H IV 11/10/16 16:00 11/14/16 15:04 DC 11/13/16 16:10 100 MLS/HR Alprazolam (Xanax Tab) 0.5 mg Q12 PRN PO 11/10/16 13:00 12/10/16 12:59 11/14/16 08:09 0.5 MG Amitriptyline HCl (Elavil Tab) 100 mg HS PO 11/10/16 21:00 12/10/16 20:59 11/13/16 20:11 100 MG Aspirin (Ecotrin Tab) 81 mg DAILY PO 11/11/16 09:00 12/11/16 08:59 11/14/16 08:06 81 MG Clopidogrel Bisulfate (plAVix TAB) 75 mg DAILY PO 11/11/16 09:00 12/11/16 08:59 11/14/16 08:07 75 MG Diltiazem HCl (TIAzac CAP) 120 mg DAILY PO 11/11/16 09:00 12/11/16 08:59 11/14/16 08:06 120 MG Docusate Sodium (coLACE CAP) 100 mg BID PO 11/10/16 21:00 12/10/16 20:59 11/14/16 08:06 100 MG Furosemide (Lasix Tab) 120 mg DAILY PO 11/11/16 09:00 12/11/16 08:59 11/14/16 08:07 120 MG Oxycodone HCl (Oxycontin Tab) 15 mg Q12 PO 11/10/16 21:00 11/24/16 20:59 11/14/16 08:07 15 MG Pantoprazole Sodium (Protonix Tab) 40 mg BID PO 11/10/16 21:00 12/10/16 20:59 11/14/16 08:07 40 MG Potassium Chloride (Klor-Con Tab) 60 meq TID PO 11/10/16 14:00 11/10/16 18:33 DC 11/10/16 15:35 60 MEQ Simvastatin (Zocor Tab) 10 mg QPM PO 11/10/16 21:00 12/10/16 20:59 11/13/16 20:11 10 MG Topiramate (Topamax Tab) 100 mg DAILY PO 11/11/16 09:00 12/11/16 08:59 11/14/16 08:06 100 MG Hydrochlorothiazide (Hydrochlorothiazide Tab) 12.5 mg DAILY PO 11/11/16 09:00 12/11/16 08:59 11/14/16 08:06 12.5 MG Losartan Potassium (coZAAR TAB) 100 mg DAILY PO 11/11/16 09:00 12/11/16 08:59 11/14/16 08:06 100 MG Ipratropium [place] (Atrovent 0.02% 0.5MG/2.5ML Neb) 0.5 mg Q6R INH 11/10/16 21:00 12/10/16 20:59 11/14/16 14:21 0.5 MG Levalbuterol (Xopenex 1.25MG/ 0.5ML Neb) 1.25 mg Q6R INH 11/10/16 21:00 12/10/16 20:59 11/14/16 14:21 1.25 MG Oxycodone HCl (Roxicodone Immediate Rel Tab) 5 mg Q4H PRN PO 11/10/16 16:00 11/24/16 15:59 11/11/16 08:12 5 MG Potassium Chloride (Klor-Con Tab) 60 meq BID PO 11/10/16 21:00 12/10/16 20:59 11/14/16 08:07 60 MEQ Benzonatate (Tessalon Perles Cap) 100 mg TID PO 11/11/16 14:00 12/11/16 13:59 11/14/16 12:41 100 MG Insulin Aspart SLIDING SCALE G... ACHS SC 11/11/16 16:15 12/11/16 16:14 11/14/16 12:41 6 UNITS Methylprednisolone Sodium Succinate/ Syringe (Solu-Medrol IV/ Syringe) 0.64 ml @ 1.5 mls/min Q8 IV 11/12/16 14:00 11/13/16 07:06 DC 11/13/16 05:33 1.5 MLS/MIN Fluticasone/ Vilanterol 1 puffs 1 puffs DAILY INH 11/13/16 08:00 12/13/16 07:59 11/14/16 08:04 1 PUFFS Methylprednisolone Sodium Succinate/ Syringe (Solu-Medrol IV/ Syringe) 0.32 ml @ 1.5 mls/min Q12H IV 11/13/16 18:00 11/14/16 08:46 DC 11/14/16 05:32 1.5 MLS/MIN Levofloxacin (Levaquin Tab) 500 mg DAILY@11 PO 11/14/16 16:00 11/17/16 11:00 11/14/16 16:52 500 MG Objective Vital Signs Date Time Temp Pulse Resp B/P Pulse Ox O2 Delivery O2 Flow Rate FiO2 11/14/16 17:00 Nasal Cannula 4.0 11/14/16 15:44 36.5 87 20 108/72 100 Nasal Cannula 4.0 11/14/16 14:21 96 18 97 Nasal Cannula 4.0 11/14/16 09:25 Nasal Cannula 4.0 11/14/16 07:27 73 20 133/79 98 Nasal Cannula 4.0 11/14/16 07:14 73 18 98 BiPAP/CPAP 4.0 11/14/16 01:50 86 18 97 Nasal Cannula 4.0 11/14/16 00:00 36.6 87 20 108/77 97 CPAP 11/14/16 00:00 Nasal Cannula 4.0 CPAP 11/13/16 20:00 Nasal Cannula 4.0 CPAP 11/13/16 19:45 91 18 98 Nasal Cannula 4.0 Physical Exam General Appearance: no apparent distress, + obese Eyes: normal inspection ENT: normal ENT inspection Neck: supple Respiratory/Chest: no respiratory distress, no accessory muscle use, + decreased breath sounds (throughout) Cardiovascular: regular rate, rhythm, no murmur Abdomen: normal bowel sounds, non tender, soft Extremities: non-tender, normal inspection, no pedal edema, no calf tenderness Neurologic/Psychiatric: alert, normal mood/affect, oriented x 3 Skin: normal color, warm/dry, no rash Lymphatic: no adenopathy Laboratory Results Results Past 24 Hours Test 11/13/16 20:16 11/14/16 06:35 11/14/16 07:39 11/14/16 11:19 Range/Units Bedside Glucose 174 105 189 70-90 mg/dl Sodium Level 142 136-145 mmol/L Potassium Level 3.7 3.5-5.1 mmol/L Chloride Level 105 98-107 mmol/L Carbon Dioxide Level 31 21-32 mmol/L Anion Gap 6.0 3-11 mmol/L Blood Urea Nitrogen 26 7-18 mg/dl Creatinine 0.83 0.60-1.20 mg/dl Est Creatinine Clear Calc Drug Dose 57.6 ml/min Estimated GFR () 80.5 Estimated GFR (Non- 69.5 BUN/Creatinine Ratio 31.9 10-20 Random Glucose 116 70-99 mg/dl Calcium Level 8.4 8.5-10.1 mg/dl Magnesium Level 3.0 1.8-2.4 mg/dl Test 11/14/16 16:34 11/14/16 17:26 Range/Units Bedside Glucose 133 70-90 mg/dl Assessment and Plan 76-year-old female with multiple medical problems here with recurrent acute exacerbation of COPD. ABG with no evidence of significant hypercarbia or acidosis. Acute on chronic COPD Exacerbation/MITCH-significantly improved since admission- 10 mg of prednisone daily is BL CXR negative - Xopenex every 6 hours daily, and every 2 hours for shortness of breath or wheezing - Solumedrol taper down and currently on prednisone 50 mg daily -continue levaquin 500 mg qd for 7 day course for severe AECOPD-today day #5 - CT chest:10/24 1. No acute intrathoracic findings. 2. Moderate emphysema. 3. No thoracic lymphadenopathy. 4. Severe T4 compression fracture which is old. Vertebral body height loss has significantly increased since CT of May 13, 2016. Healing fracture through the spinous process of the T4 vertebra. - Doppler ultrasound negative for bilat DVT - Continue home inhalers Incruse, Breo ,and BiPAP when necessary and daily at bedtime -Appreciate pulmonology consultation Hyperglycemia: Likely yklzwdp-lydpens-Ude A1C 6.6% indicates new dx of DM type [id number] -Glucose checks here ranging from 130s to 230s - No history of diabetes diagnosed previously - ISS with Accu-Cheks -Can start metformin on discharge and consult CDE on Monday - diabetes consult CHronic diastolic Congestive heart failure-stable - Echocardiogram : 10/23 * Normal biventricular systolic function. * Mild concentric left ventricular hypertrophy. * Left ventricular diastolic dysfunction. * Mild left atrial dilatation. * No significant valvular abnormalities - Continue Lasix 120 mg daily with potassium supplementation Coronary artery disease-stable, nonobstructive CAD on cath in 2005, Dobutamine stress normal 2014 - Continue aspirin, Plavix, simvastatin Hypertension-controlled - Continue Hyzaar , diltiazem Chronic Back Pain - Secondary to vertebral Compression fracture - Continue Flexeril - Continue oxycodone Anxiety-stable - Continue Xanax -consider starting SSRI in future for anxiety related to COPD DVT prophylaxis: Lovenox which the patient has been refusing due to bruising SCDs Disposition: To home when able PT/OT Resident Physician Supervision Note: I interviewed and examined the patient. Discussed with Dr. Ferrera and agree with findings and plan as documented in the note. Any exceptions or clarifications are listed here: None Documented By: Sam Casperur feeling better but still worried about goign home - wants to be sure she's going to do OK ros otherwise negative except for as above vitals noted, nad breathing unlabored very quiet but no accessory muscles good effort COPD exac - ?environmental (seasonal) exposures as culprit ? improving. hopefully home tomorrow otherwise as above Continued [facility] stay due to: other Discharge planning: uncertain
[2016-11-14] MEDS: SIMVASTATIN 10 MG TAB PO SCH (20:08)
[2016-11-14] MEDS: AMITRIPTYLINE HCL 100 MG TAB PO SCH (20:09)
[2016-11-15] VITALS (7 sets, daily range): BP systolic 114–141; BP diastolic 63–73; PULSE 88–102; TEMP 36.4–36.6; O2SAT 95–100; Ht 152.4 cm; Wt 84.5 kg
[2016-11-15] MEDS: LEVALBUTEROL 1.25MG/0.5ML NEB INH SCH ×3 (01:37→14:39)
[2016-11-15] MEDS: IPRATROPIUM BROMIDE NEB SOLN 0.02% 2.5 ML VIAL INH SCH ×3 (01:37→14:39)
[2016-11-15] MEDS ORDERED: ERGOCALCIFEROL 50,000 INTER.UNIT CAP PO SCH (07:00)
[2016-11-15 07:19] LABS: HEMATOCRIT 41.2 % (37-47); MEAN CELL VOLUME 83.9 fL (80-100); MEAN CORPUSCULAR HEMOGLOBIN 26.7 pg (25-34); MEAN CORPUSCULAR HGB CONC 31.8 g/dl (32-36); MEAN PLATELET VOLUME 8.7 fL (7.4-10.4); PLATELET COUNT 310 K/uL (130-400); RED BLOOD COUNT 4.91 M/uL (4.2-5.4); WHITE BLOOD COUNT 8.81 K/uL (4.8-10.8)
[2016-11-15 07:51] LABS: BUN/CREATININE RATIO 36.5 (10-20); CALCIUM 8.6 mg/dl (8.5-10.1); CREATININE 0.86 mg/dl (0.60-1.20); POTASSIUM 3.5 mmol/L (3.5-5.1)
[2016-11-15] MEDS: PANTOprazole SOD 40 MG TAB PO SCH (08:03)
[2016-11-15] MEDS: DOCUSATE SODIUM 100 MG CAP PO SCH (08:03)
[2016-11-15] MEDS: FUROSEMIDE 40 MG TAB PO SCH (08:04)
[2016-11-15] MEDS: LOSARTAN POTASSIUM 50 MG TAB PO SCH (08:15)
[2016-11-15] MEDS: ASPIRIN 81 MG ECTAB PO SCH (08:15)
[2016-11-15] MEDS: HYDROCHLOROTHIAZIDE 25 MG TAB PO SCH (08:15)
[2016-11-15] MEDS: POTASSIUM CHLORIDE 20 MEQ TABCR PO SCH (08:16)
[2016-11-15] MEDS: DILTIAZEM HCL 120 MG EXT REL CAP PO SCH (08:17)
[2016-11-15] MEDS: FLUTICASONE FUROATE-VILANTEROL 30 PUFFS/INHALER INH INH SCH (08:17)
[2016-11-15] MEDS: TOPIRAMATE 100 MG TAB PO SCH (08:17)
[2016-11-15] MEDS: UMECLIDINIUM BROMIDE 62.5MCG/INH INH SCH (08:17)
[2016-11-15] MEDS: BENZONATATE 100MG CAP PO SCH ×2 (08:17→14:30)
[2016-11-15] MEDS: CLOPIDOGREL BISULFATE 75 MG TAB PO SCH (08:17)
[2016-11-15] MEDS: OXYCODONE HCL 15 MG TABCR (OXYCONTIN) PO SCH (08:20)
[2016-11-15] MEDS: INSULIN ASPART 100 UNITS/ML 3 ML PEN SC SCH ×2 (09:15→12:38)
[2016-11-15] MEDS: ALPRAZOLAM 0.5 MG TAB PO PRN (09:23)
[2016-11-15] MEDS: LEVOFLOXACIN 500 MG TAB PO SCH (12:11)
[2016-11-15] MEDS: ENOXAPARIN 40 MG/0.4 ML SYR SC SCH (13:00)
[2016-11-15] MEDS ORDERED: LVQ500 PO (14:28)
[2016-11-15] MEDS ORDERED: PRED10TA PO (14:28)
[2016-11-15] MEDS ORDERED: ERGO500011 PO (14:28)
--- NOTE | 2016-11-15 14:34 | Discharge Instructions ---
Discharge Instructions Date of Service November 15, 2016. Admission Reason for Admission: SOB Discharge Discharge Diagnosis / Problem: COPD exacerbation Discharge Goals Goal(s): Learn about illness, Therapeutic intervention Activity Recommendations Activity Limitations: resume your previous activity . Instructions / Follow-Up Instructions / Follow-Up You were admitted to the hospital because of a COPD exacerbation. You were treated with solumedrol ( a steroid) and antibiotics. We would like you to continue your steroids until you return to your original dose which you noted to be 10 mg of prednisone daily. We would also like you to take one final dose of antibiotics tomorrow. 1. Prednisone taper - 50 mg x 2 days - 40 mg x 2 days - 30 mg x 2day - 20 mg x 2 days - continue your 10 mg dose 2. Take one dose of antibiotics tomorrow around 11 am 3. Follow up with your PCP within the week As discussed, your HBA1C was 6.6% which typically reflects diabetes however because of the recent high dose steroids approx a month ago these may not reflect your true sugar status. As discussed, we recommend a recheck of your HBA1C in three months and during that time healthy eating choices and avoiding starchy foods like white pasta or mountain dew may help control the sugar. Finally, we recommend that you do take vit D for healthy bones on a daily basis however we do understand the hesitancy to take so many pills. Try this summer to get some sun on a daily basis. We have also prescribed a once a week Vit D medication to take over the next three months. A recheck of your vitamin D in approx January would be optimal. We wish you chanel Ferrera Current Hospital Diet Patient's current hospital diet: AHA Diet (Heart Healthy) Discharge Diet Recommended Diet: Low Sodium Diet (2gm Na), Diabetes Type 2 Diet Pending Studies Studies pending at discharge: no Laboratory Results Hemoglobin A1c Test 11/12/16 05:34 Range/Units Estimated Average Glucose 143 mg/dl Hemoglobin A1c 6.6 H 4.5-5.6 % Medical Emergencies . Who to Call and When: Medical Emergencies: If at any time you feel your situation is an emergency, please call 911 immediately. . Non-Emergent Contact Non-Emergency issues call your: Primary Care Provider . . "Provider Documentation" section prepared by Savanah Ferrera. . VTE Core Measure Inpt VTE Proph given/why not?: Enoxaparin (Lovenox)SQ
--- NOTE | 2016-11-15 16:13 | PROGRESS NOTE ---
DATE: 11/15/2016 DATE: 11/15/2016. PROBLEM LIST: Includes: 1. Chronic obstructive pulmonary disease with exacerbation. 2. Obstructive sleep apnea. 3. Obesity. 4. Coronary artery disease suspected. SUBJECTIVE: The patient reports that she is doing a little bit better. She feels that she is not quite at her baseline, but is getting close to it. States that she still has some cough at times. She does have a little bit of mucus. She still feels short of breath, but it is not as bad. She is using her oxygen, her nebulizer and her inhalers and feels that they are helpful. She is not having any chest pain, no abdominal pain, no nausea or vomiting. Denies any other concerns at this time. OBJECTIVE: GENERAL: The patient is a 76-year-old female in no acute distress. She is alert and oriented x3. Mood is good. Affect is good. VITAL SIGNS: Temp 36.6, pulse 102, respirations 22, blood pressure is 141/73, pulse ox 95 on 4 liters. HEAD, EYES, EARS, NOSE, AND THROAT: Normocephalic, atraumatic. Pupils equally round and reactive to light and accommodation. Extraocular movements are intact. [place] moist gingival and buccal mucosa. NECK: Supple. There is no mass. No adenopathy. No bruit. CHEST: Significantly diminished breath sounds bilaterally. No appreciated wheeze, rale or rhonchi noted. CARDIOVASCULAR: Regular rate and rhythm. No murmurs, gallops or rubs. ABDOMEN: Soft, nontender. No guarding, rigidity or organomegaly. EXTREMITIES: No erythema. No edema, no tenderness to palpation. NEUROLOGIC: Cranial nerves II through XII are intact. No focal deficit noted. LABORATORY DATA: Show a white count of 8,000, H\T\H 13.1 and 41.2, platelet count of 310,000. BUN 31, creatinine 0.86. Blood cultures negative to date. No new imaging data. IMPRESSION: This is a 76-year-old female with severe COPD who was recently hospitalized for COPD exacerbation. At this time, she is doing better. Recommendation is to continue slow prednisone taper. Continue antibiotic. Apparently patient is being discharged to home today. I would like to see her in the office at her regularly scheduled appointment on 11/20/2016. She is agreeable to this. At that time we will discuss her medications. Patient seen and case reviewed. Plan agreed on. GARY
--- NOTE | 2016-11-15 16:49 | Discharge Summary ---
Discharge Summary Date of Service November 15, 2016. (Savanah Ferrera MD) Discharge Summary Admission Date: November 10, 2016 at 12:19 Discharge Date: November 15, 2016 Discharge Disposition: Home Principal Diagnosis: acute on chronic COPD exacerbation Immunizations: Have You Had Influenza Vaccine: No History of Tetanus Vaccine?: No Tetanus Immunization Date: Jun 07, 2003 History of Pneumococcal: Yes Pneumococcal Date: Jun 07, 2004 History of Hepatitis B Vaccine: No (Savanah Ferrera MD) Medication Reconciliation New Medications: Prednisone (Prednisone) 10 Mg Tab 10 MG PO DIRECTED for 30 Days, #30 TAB 50mg x 2 days 40 x 2 day 30x 2 days 20 x 2 days end at 10 mg daily Ergocalciferol (Vitamin D 48633 Unit) 50,000 Unit Cap 81824 INTERUNIT PO Tu@0900 for 90 Days, #12 CAP Levofloxacin (Levofloxacin) 500 Mg Tab 500 MG PO DAILY@11 for 1 Day, #1 TAB Continued Medications: Acetaminophen (Tylenol) 325 Mg Tab 650 MG PO Q4 PRN for Pain or Fever, TAB Alprazolam (Xanax) 0.5 Mg Tab 0.5 MG PO Q12 PRN for Anxiety and/or Sedation, TAB Amitriptyline HCl (Amitriptyline HCl) 100 Mg Tab 100 MG PO HS Aspirin (Aspirin 81) 81 Mg Tab 81 MG PO DAILY Baclofen (Lioresal) 10 Mg Tab 10 MG PO TID PRN for spasms, TAB Bvgepqjqga-Eudpazbjpubxy-Fesad (Fioricet) 1 Cap Cap 1 TAB PO Q4 PRN for headache Clopidogrel Bisulfate (Clopidogrel) 75 Mg Tab 75 MG PO DAILY Diltiazem Hcl Extended Release (Diltiazem Hcl Er) 120 Mg Cap 120 MG PO DAILY Docusate Sodium (Docusate Sodium) 100 Mg Cap 10 MG PO BID, #60 CAP Fluticasone Furoate-Vilanterol (Breo Ellipta 200-25 Mcg/INH) 1 Inh Inh 1 INHA PO DAILY, #1 INHALER Furosemide (Lasix) 40 Mg Tab 120 MG PO DAILY, 0 Refills Hydrocortisone (Topical) (Hydrocortisone) 2.5 % Lot 1 APPLN TOP BID for 10 Days, #60 ML Ipratropium-Albuterol (Combivent Respimat) 1 Aer Aer 1 PUFFS INH QID, INH Ipratropium-Albuterol (Duoneb) 3 Ml Nebu 1 TREATMENT INH Q4H, INHA Losartan Potassium & Hydrochlo (Hyzaar) 1 Tab Tab 12.5-100 MG PO DAILY for 90 Days, TAB 3 Refills Nitroglycerin (Nitrostat) 0.4 Mg Sub 0.4 MG UT UD PRN for Chest Pain, BTL PLACE ONE TABLET UNDER THE TONGUE EVERY MINUTES FOR UP TO 3 DOSES IF NEEDED FOR CHEST PAIN. Oxycodone Hcl (Oxycontin) 15 Mg Tab 15 MG PO Q12, #60 Oxycodone HCl (Oxycodone HCl) 5 Mg Tab 5 MG PO Q3.5H PRN for Pain, #75 Oxygen (Oxygen) Gas 4 LITERS NA CONTINOUS Pantoprazole (Protonix) 40 Mg Tab 40 MG PO BID, TAB Potassium Ext Rel (Klor-Con) 20 Meq Tabcr 60 MEQ PO TID, TAB Simvastatin (Zocor) 10 Mg Tab 10 MG PO QPM, 0 Refills Topiramate (Topamax) 100 Mg Tab 100 MG PO DAILY, TAB Triamcinolone Acet (Aristocort 0.1%) 90 Appln/30 Gm Cr 1 APPLN TOP BID APPLY SPARINGLY TO AFFECTED AREA(S). Umeclidinium [place] (Incruse Ellipta) 62.5 Mcg/Inh Inh 1 INHA PO DAILY for 30 Days, #1 INHALER Discontinued Medications: Prednisone Tab (Prednisone) 10 Mg Tab 10 MG PO DIRECTED, #24 TABS Use 4 tabs ( 4X10 mg )40 mg tabs for 3 days Use 3 tabs and half tab ( 3X 10 mg tabs and half tab) 35 mg for 3 days Discharge Exam Patient feeling well and is ready for d/c we discussed the plan and patient reflected understanding of d/c and agreeable Review of Systems: Constitutional: No chills, No fever Eyes: No worsening of vision ENT: No hearing loss Respiratory: + cough, + dyspnea at rest, + dyspnea on exertion, + shortness of breath, No sputum, No wheezing Cardiovascular: No chest pain Abdomen: No constipation, No diarrhea, No nausea, No pain, No vomiting Musculoskeletal: No joint pain, No muscle pain Genitourinary - Female: No dysuria Neurologic: + weakness, No balance problems, No numbness/tingling Psychiatric: No depression symptoms Endocrine: + fatigue Hematologic / Lymphatic: No abnormal bleeding/bruising Integumentary: No rash Physical Exam: General Appearance: no apparent distress Eyes: normal inspection ENT: normal ENT inspection Neck: supple Respiratory/Chest: no respiratory distress, no accessory muscle use, + decreased breath sounds (throughout), + wheezing (occasionally) Cardiovascular: regular rate, rhythm, no murmur Abdomen / GI: normal bowel sounds, non tender, soft Neurologic/Psychiatric: alert, normal mood/affect, oriented x 3 Skin: normal color, warm/dry, no rash Lymphatic: no adenopathy (Savanah Ferrera MD) Hospital Course 76-year-old female with multiple medical problems here with recurrent acute exacerbation of COPD. ABG with no evidence of significant hypercarbia or acidosis. She was treated inpatient for an acute on chronic COPD exacerbation with Xopenex q6h, continuation of her BL inhalers and a Solumedrol taper. She was treated with Levaquin 500 mg daily empirically and discharged with a dose to complete a full 7 day course of antibiotics. She was also d/c with a slow prednisone taper and plan to follow up with her PCP. She was noted to have an HBA1C of 6.6 % which would technically make her a new onset diabetic however with her more recent high dose steroid use approx a month ago it is suspicious that she may only be prediabetic. Education was given and plan to recheck in 3 month recommended. We also discussed importance of bone health and to take Vit D. Since she dislikes taking so many pills it was decided to continue Ergocalciferol weekly and recheck in January. Acute on chronic COPD Exacerbation/MITCH-significantly improved since admission- 10 mg of prednisone daily is BL CXR negative - Slow steroid taper levaquin 500 mg qd for 7 day course for severe AECOPD- d/c with one dose to complete the 7 day - CT chest:10/24 1. No acute intrathoracic findings. 2. Moderate emphysema. 3. No thoracic lymphadenopathy. 4. Severe T4 compression fracture which is old. Vertebral body height loss has significantly increased since CT of May 13, 2016. Healing fracture through the spinous process of the T4 vertebra. - Doppler ultrasound negative for bilat DVT - Continued home inhalers Incruse, Breo ,and BiPAP when necessary and daily at bedtime Hyperglycemia: Likely akmubuv-twdirto-Gpd A1C 6.6% -Glucose checks here ranging from 130s to 230s - No history of diabetes diagnosed previously - recommend recheck of HBA1C in 3 months CHronic diastolic Congestive heart failure-stable - Echocardiogram : 10/23 * Normal biventricular systolic function. * Mild concentric left ventricular hypertrophy. * Left ventricular diastolic dysfunction. * Mild left atrial dilatation. * No significant valvular abnormalities - Continued Lasix 120 mg daily with potassium supplementation Coronary artery disease-stable, nonobstructive CAD on cath in 2005, Dobutamine stress normal 2014 - Continued aspirin, Plavix, simvastatin Hypertension-controlled - Continued Hyzaar , diltiazem Chronic Back Pain - Secondary to vertebral Compression fracture - Continued Flexeril - Continued oxycodone - Rx for Ergocalciferol for a Vit D of 14 - recommend recheck in 3 month DVT prophylaxis: Lovenox which the patient has been refusing due to bruising SCDs Total Time Spent: Less than 30 minutes This includes examination of the patient, discharge planning, medication reconciliation, and communication with other providers. (Savanah Ferrera MD) Resident Physician Supervision Note: I interviewed and examined the patient. Discussed with Dr. Ferrera and agree with findings and plan as documented in the note. Any exceptions or clarifications are listed here: None Documented By: Sam Shelton feeling Ok w going home understands treatment for COPD discussed D deficiency and osteoporosis - pt/dtr perspective is in wanting to minimize pills and value quality of life vitals noted nad breathing unlabored no pallor or icterus COPD exacerbation - improving. stable for home. taper steroids. outpt pulmonary f/u osteoporosis - discussed quality of life implications for new fractures - discussed sun exposure in spring/summer/fall for vitamin D - 15mins daily to BID , repeat D level in ~3 months. discussed bisphophonate - open to reclast since IV once a year instead of PO - but will leave open to discuss w PCP stable for home Total Time Spent: Less than 30 minutes (Sam Shelton, D.O.) Discharge Instructions Please refer to the electronic Patient Visit Report (Discharge Instructions) for additional information. (Savanah Ferrera MD) Additional Copies To Jaswant Patel M.D.
[2016-11-16] MEDS ORDERED: CHOLECALCIFEROL 1000 INTER.UNIT TAB PO SCH (08:00)
[2016-11-22] MEDS ORDERED: ERGOCALCIFEROL 50,000 INTER.UNIT CAP PO SCH (09:00)
== END 2016-11-15 15:48 | disposition home or self-care (01) | DRG 191 ==
LOC: ENRESERVDT → ENRESERVTM → C.EDB 08:43 → C.2T 12:19 → C.4E 11-12 10:38
PROVIDERS: ADMIT Family Medicine; ATTEND Family Medicine
DX: J44.1 Chronic obstructive pulmonary disease with (acute) exacerbation (principal); I50.32 Chronic diastolic (congestive) heart failure; J96.10 Chronic respiratory failure, unspecified whether with hypoxia or hypercapnia; R73.03 Prediabetes; T38.0X5A Adverse effect of glucocorticoids and synthetic analogues, initial encounter; R60.0 Localized edema; J45.909 Unspecified asthma, uncomplicated; I11.0 Hypertensive heart disease with heart failure; I25.2 Old myocardial infarction; E78.5 Hyperlipidemia, unspecified; K21.9 Gastro-esophageal reflux disease without esophagitis; I25.10 Atherosclerotic heart disease of native coronary artery without angina pectoris; M81.0 Age-related osteoporosis without current pathological fracture; E55.9 Vitamin D deficiency, unspecified; G89.29 Other chronic pain; M54.9 Dorsalgia, unspecified; F41.9 Anxiety disorder, unspecified; G47.33 Obstructive sleep apnea (adult) (pediatric); E66.01 Morbid (severe) obesity due to excess calories; Z99.81 Dependence on supplemental oxygen; Z51.81 Encounter for therapeutic drug level monitoring; Z79.899 Other long term (current) drug therapy; Z79.52 Long term (current) use of systemic steroids; Z79.02 Long term (current) use of antithrombotics/antiplatelets; Z79.82 Long term (current) use of aspirin; Z79.891 Long term (current) use of opiate analgesic; Z68.36 Body mass index [BMI] 36.0-36.9, adult; Z86.19 Personal history of other infectious and parasitic diseases; Z87.891 Personal history of nicotine dependence; Z80.0 Family history of malignant neoplasm of digestive organs; Z82.49 Family history of ischemic heart disease and other diseases of the circulatory system

== ENCOUNTER 2016-11-23 08:22 | Inpatient (IN) | payer OTHER, MEDICARE ==
[~2016-11-23] VITALS: Ht 152.4 cm; Wt 85.8 kg
[2016-11-23] VITALS (7 sets, daily range): BP systolic 103–120; BP diastolic 62–73; PULSE 74–103; TEMP 36.8–37.3; O2SAT 97–100; Ht 152.4 cm; Wt 85.8 kg
[~2016-11-23 08:22] MED LIST changes: +ACET-1311 PO; -CYNI1000 SC; +ERGO500011 PO; +LVQ500 PO; -ROFL1TAB5 PO; -TYL325X PO
[2016-11-23] MEDS ORDERED: SODIUM CHLORIDE 0.9% 1000ML 500 ML IV STA (08:44)
[2016-11-23] MEDS ORDERED: ACETAMINOPHEN 325 MG TAB PO STA (08:44)
[2016-11-23] MEDS ORDERED: ONDANSETRON INJ 2 MG/ML 2 ML VIAL ONE (08:50)
--- NOTE | 2016-11-23 09:06 | DIAGNOSTIC IMAGING REPORT ---
SINGLE VIEW CHEST CLINICAL HISTORY: Dyspnea. COPD. FINDINGS: An AP, portable, upright chest radiograph is compared to study dated 11/10/2016 and correlated with chest CT dated 10/24/2016. The examination is degraded by portable technique and patient rotation. The cardiomediastinal silhouette is unremarkable. There is atherosclerotic calcification of the thoracic aorta. Emphysema and chronic interstitial thickening are similar to previous. There is patchy airspace consolidation at the right lung base and a trace right pleural effusion. The left lung is grossly clear. No pneumothorax is seen. The skeletal structures are osteopenic. There are healed right-sided rib fractures. Calcific tendinopathy is noted in the right shoulder. IMPRESSION: 1. There is patchy airspace consolidation at the right lung base with a trace right pleural effusion. The appearance is typical for pneumonia. Radiographic follow-up to resolution is recommended. 2. The left lung is grossly clear. 3. Emphysema. Electronically signed by: Cyril Saldivar M.D. 11/23/2016 9:05 AM Dictated Date/Time: 11/23/2016 9:03 AM
[2016-11-23 09:10] LABS: HEMATOCRIT 43.9 % (37-47); MEAN CELL VOLUME 83.9 fL (80-100); MEAN PLATELET VOLUME 9.1 fL (7.4-10.4); PLATELET COUNT 392 K/uL (130-400); RED BLOOD COUNT 5.23 M/uL (4.2-5.4); WHITE BLOOD COUNT 28.86 K/uL (4.8-10.8)
[2016-11-23] MEDS ORDERED: ALBUT/IPRATROP 3MG/0.5MG NEB 3 ML VIAL INH STA (09:14)
[2016-11-23] MEDS ORDERED: SODIUM CHLORIDE 0.9% 1000ML 1,000 ML IV STA ×2 (09:14→09:26)
[2016-11-23] MEDS ORDERED: LEVAQUIN 750MG / 150ML D5W IV ONE (09:15)
[2016-11-23] MEDS ORDERED: LINEZOLID / D5W 600 MG in PREMIXED IN D5W 300 ML IV STA (09:20)
[2016-11-23 09:25] LABS: CALCIUM 8.8 mg/dl (8.5-10.1); INR 1.1 (0.9-1.1); PARTIAL THROMBOPLASTIN RATIO 0.9; PROTHROMBIN TIME (PATIENT) 11.4 SECONDS (9.0-12.0)
--- NOTE | 2016-11-23 09:26 | EMERGENCY ROOM VISIT NOTE ---
History Report prepared by Sharmin: Brian Hernandez Under the Supervision of: Dr. Jaswant Bruner D.O. First contact with patient: 09:03 Chief Complaint: RESPIRATORY DISTRESS Stated Complaint: RESPIRATORY Nursing Triage Summary: pt here with increased resp distress since last pm pt normally wears bipap at night at home and wears 4 liters oxygen nc. pt has scattered wheezes throughout. pt given 1 duoneb in route and 2 albuterol treatments. History of Present Illness The patient is a 76 year old female who presents to the Emergency Room with complaints of shortness of breath and cough. The patient has a history of COPD but also has CHF history. She wears BiPAP at night as well as 4 liters of oxygen. The patient has been noticing increasing shortness of breath over the last 2-3 days. She was recently admitted to our facility for significant respiratory problems. The patient has a history of COPD and was treated with bronchodilator therapy as well as steroids 125 milligrams of slight Medrol prior to arrival by the flame planer. The patient states that her symptoms have significantly improved but she still continues to have significant shortness of breath. The patient denies having any chest pain. She does complain of shortness of breath with exertion but denies orthopnea or swelling in the leg. She states her symptoms are very severe at this time. She has not follow-up with her primary care physician after her discharge from our facility. Source of History: patient Onset: Last 2-3 days Position: other (global - shortness of breath) Timing: worsening Modifying Factors (Relieving): other (bronchodilator therarpy and steroid) Associated Symptoms: + cough, No chest pain Note: Associated symptoms: Denies orthopnea or leg swelling. Review of Systems See HPI for pertinent positives & negatives. A total of 10 systems reviewed and were otherwise negative. Past Medical & Surgical Medical Problems: (1) AC MYOCARDIAL INFARCT,SUBENDO INFARCT,INITIAL EPIS (2) Acute bronchitis (3) ANXIETY STATE NOS (4) AORTIC VALVE DISORDER (5) ASTHMA, UNSPECIFIED (6) c diff colitis (7) CARDIOMYOPATH IN OTH DIS (8) Chest wall pain (9) CHRONIC RESPIRATORY FAILURE (10) Clostridium difficile colitis (11) CONGESTIVE HEART FAILURE NOS (12) COPD exacerbation (13) COPD exacerbation (14) copd exacerbation (15) ESOPHAGEAL REFLUX (16) HCAP (healthcare-associated pneumonia) (17) Herpes zoster (18) HYPERLIPIDEMIA NEC/NOS (19) inflamation in lung (20) Multiple rib fractures (21) Multiple rib fractures (22) Multiple rib fractures (23) Neck pain, bilateral (24) OBSTR CHRONIC BRONCHITIS, W (ACUTE) EXACERBATION (25) OBSTRUCTIVE SLEEP APNEA (ADULT) (PEDIATRIC) (26) OSTEOARTHROS NOS-UNSPEC (27) OSTEOPOROSIS NOS (28) Rib pain on right side (29) Shortness of breath (30) SOB (shortness of breath) (31) Thoracic compression fracture (32) TOBACCO USE DISORDER Family History FHx: lung disease Social History Smoking Status: Former Smoker Alcohol Use: none Drug Use: none Marital Status: Housing Status: lives with family Occupation Status: retired Current/Historical Medications Scheduled Amitriptyline HCl (Amitriptyline HCl), 100 MG PO HS Aspirin (Aspirin 81), 81 MG PO DAILY Clopidogrel Bisulfate (Clopidogrel), 75 MG PO DAILY Diltiazem Hcl Extended Release (Diltiazem Hcl Er), 120 MG PO DAILY Docusate Sodium (Docusate Sodium), 10 MG PO BID Ergocalciferol (Vitamin D 37154 Unit), 50,000 INTERUNIT PO Tu@0900 Fluticasone Furoate-Vilanterol (Breo Ellipta 200-25 Mcg/INH), 1 INHA PO DAILY Furosemide (Lasix), 120 MG PO DAILY Hydrocortisone (Topical) (Hydrocortisone), 1 APPLN TOP BID Ipratropium-Albuterol (Combivent Respimat), 1 PUFFS INH QID Ipratropium-Albuterol (Duoneb), 1 TREATMENT INH Q4H Levofloxacin (Levofloxacin), 500 MG PO DAILY@11 Losartan Potassium & Hydrochlo (Hyzaar), 12.5-100 MG PO DAILY Oxycodone Hcl (Oxycontin), 15 MG PO Q12 Oxygen (Oxygen), 4 LITERS NA CONTINOUS Pantoprazole (Protonix), 40 MG PO BID Potassium Ext Rel (Klor-Con), 60 MEQ PO TID Prednisone (Prednisone), 10 MG PO DIRECTED Simvastatin (Zocor), 10 MG PO QPM Topiramate (Topamax), 100 MG PO DAILY Triamcinolone Acet (Aristocort 0.1%), 1 APPLN TOP BID Umeclidinium [place]uc[place] (Incruse Ellipta), 1 INHA PO DAILY Scheduled PRN Acetaminophen (Tylenol), 650 MG PO Q4 PRN for Pain or Fever Alprazolam (Xanax), 0.5 MG PO Q12 PRN for Anxiety and/or Sedation Baclofen (Lioresal), 10 MG PO TID PRN for spasms Iavhuogvxc-Nbdakqtcqeeoo-Ptnvb (Fioricet), 1 TAB PO Q4 PRN for headache Nitroglycerin (Nitrostat), 0.4 MG UT UD PRN for Chest Pain Oxycodone HCl (Oxycodone HCl), 5 MG PO Q3.5H PRN for Pain Allergies Coded Allergies: Zolpidem (Verified Allergy, Intermediate, RASH, 11/23/16) Banana (Verified Allergy, Unknown, 11/23/16) Metoprolol (Verified Adverse Reaction, Severe, BRONCHOSPASM,EXAC.COPD, ) Uncoded Allergies: "CLEANING PRODUCTS" (Allergy, Intermediate, Cleaning Products, 01/18/15) Physical Exam Vital Signs Date Time Temp Pulse Resp B/P Pulse Ox O2 Delivery O2 Flow Rate FiO2 11/23/16 09:35 123 20 113/59 11/23/16 09:33 97 Nasal Cannula 4.0 11/23/16 09:33 123 20 113/59 11/23/16 09:30 97 Nasal Cannula 4.0 11/23/16 08:35 132 11/23/16 08:33 38.9 132 22 94/61 99 Nasal Cannula 6.0 11/23/16 08:33 98 Nasal Cannula 6.0 Physical Exam GENERAL: Patient is awake and alert. She appears very anxious and in respiratory distress. EYES: The conjunctivae are clear. The pupils are round and reactive. EARS, NOSE, MOUTH AND THROAT: The nose is without any evidence of any deformity. Mucous membranes are moist tongue is midline NECK: The neck is nontender and supple. RESPIRATORY: Tachypnea was noted to auscultation. There was no conversational dyspnea noted. Diminished breath sounds were noted in the right lung field. There was extra wheezing both upper lung barkley. CARDIOVASCULAR: Tachycardic rate with regular rhythm was noted. No definite murmur was noted. GASTROINTESTINAL: The abdomen is soft. Bowel sounds are present in all quadrants. Abdomen is nontender MUSCULOSKELETAL/EXTREMITIES: There is no deformity or pain noted in either lower extremity. SKIN: Trace pedal edema was noted bilaterally. No calf tenderness was noted bilaterally. NEUROLOGIC: Patient is awake alert and oriented x3. Medical Decision & Procedures ER Provider Diagnostic Interpretation: X-ray results as stated below per interpretation by me and the radiologist. SINGLE VIEW CHEST CLINICAL HISTORY: Dyspnea. COPD. FINDINGS: An AP, portable, upright chest radiograph is compared to study dated 11/10/2016 and correlated with chest CT dated 10/24/2016. The examination is degraded by portable technique and patient rotation. The cardiomediastinal silhouette is unremarkable. There is atherosclerotic calcification of the thoracic aorta. Emphysema and chronic interstitial thickening are similar to previous. There is patchy airspace consolidation at the right lung base and a trace right pleural effusion. The left lung is grossly clear. No pneumothorax is seen. The skeletal structures are osteopenic. There are healed right-sided rib fractures. Calcific tendinopathy is noted in the right shoulder. IMPRESSION: 1. There is patchy airspace consolidation at the right lung base with a trace right pleural effusion. The appearance is typical for pneumonia. Radiographic follow-up to resolution is recommended. 2. The left lung is grossly clear. 3. Emphysema. Electronically signed by: Cyril Saldivar M.D. 11/23/2016 9:05 AM Dictated Date/Time: 11/23/2016 9:03 AM Laboratory Results 11/23/16 08:45 Red Blood Count 5.23, Mean Corpuscular Volume 83.9, Mean Corpuscular Hemoglobin 26.0, Mean Corpuscular Hemoglobin Concent 31.0, Mean Platelet Volume 9.1, Neutrophils (%) (Auto) 84.1, Lymphocytes (%) (Auto) 9.8, Monocytes (%) (Auto) 5.0, Eosinophils (%) (Auto) 0.2, Basophils (%) (Auto) 0.1, Neutrophils # (Auto) 24.28, Lymphocytes # (Auto) 2.84, Monocytes # (Auto) 1.44, Eosinophils # (Auto) 0.05, Basophils # (Auto) 0.03 11/23/16 08:45 Test 11/23/16 08:45 11/23/16 08:53 11/23/16 09:20 White Blood Count 28.86 K/uL (4.8-10.8) Red Blood Count 5.23 M/uL (4.2-5.4) Hemoglobin 13.6 g/dL (12.0-16.0) Hematocrit 43.9 % (37-47) Mean Corpuscular Volume 83.9 fL (80-100) Mean Corpuscular Hemoglobin 26.0 pg (25-34) Mean Corpuscular Hemoglobin Concent 31.0 g/dl (32-36) Platelet Count 392 K/uL (130-400) Mean Platelet Volume 9.1 fL (7.4-10.4) Neutrophils (%) (Auto) 84.1 % Lymphocytes (%) (Auto) 9.8 % Monocytes (%) (Auto) 5.0 % Eosinophils (%) (Auto) 0.2 % Basophils (%) (Auto) 0.1 % Neutrophils # (Auto) 24.28 K/uL (1.4-6.5) Lymphocytes # (Auto) 2.84 K/uL (1.2-3.4) Monocytes # (Auto) 1.44 K/uL (0.11-0.59) Eosinophils # (Auto) 0.05 K/uL (0-0.5) Basophils # (Auto) 0.03 K/uL (0-0.2) RDW Standard Deviation 44.0 fL (36.4-46.3) RDW Coefficient of Variation 14.1 % (11.5-14.5) Immature Granulocyte % (Auto) 0.8 % Immature Granulocyte # (Auto) 0.22 K/uL (0.00-0.02) Polychromasia 1+ Hypochromasia PRESENT Stomatocytes 1+ Prothrombin Time 11.4 SECONDS (9.0-12.0) Prothromb Time International Ratio 1.1 (0.9-1.1) Activated Partial Thromboplast Time 24.4 SECONDS (21.0-31.0) Partial Thromboplastin Ratio 0.9 Anion Gap 9.0 mmol/L (3-11) Est Creatinine Clear Calc Drug Dose 52.0 ml/min Estimated GFR () 70.2 Estimated GFR (Non- 60.5 BUN/Creatinine Ratio 23.0 (10-20) Calcium Level 8.8 mg/dl (8.5-10.1) Magnesium Level 1.4 mg/dl (1.8-2.4) Total Bilirubin 0.5 mg/dl (0.2-1) Aspartate Amino Transf (AST/SGOT) 17 U/L (15-37) Alanine Aminotransferase (ALT/SGPT) 23 U/L (12-78) Alkaline Phosphatase 81 U/L (45-117) Pro-B-Type Natriuretic Peptide 217 pg/ml (0-900) Total Protein 6.7 gm/dl (6.4-8.2) Albumin 3.3 gm/dl (3.4-5.0) Globulin 3.4 gm/dl (2.5-4.0) Albumin/Globulin Ratio 1.0 (0.9-2) Procalcitonin 0.33 ng/ml (0-0.5) Bedside Lactic Acid Venous 3.17 mmol/L (0.90-1.70) Venous Blood pH 7.46 (7.36-7.41) Venous Blood Partial Pressure CO2 38 mmHg (38.0-50.0) Venous Blood Partial Pressure O2 49 mmHg Venous Blood HCO3 26 mmol/L Venous Blood Oxygen Saturation 83.7 % Venous Blood Base Excess 2.5 mmol/L Laboratory results per my review. Medications Administered Medications (Trade) Dose Ordered Sig/Olimpia Route Start Time Stop Time Status Last Admin Dose Admin Sodium Chloride (Nss 1000ml) 500 ml @ 999 mls/hr Q31M STAT IV 11/23/16 08:44 11/23/16 09:14 DC 11/23/16 10:57 999 MLS/HR Acetaminophen (Tylenol Tab) 650 mg NOW STAT PO 11/23/16 08:44 11/23/16 08:48 DC 11/23/16 09:43 650 MG Ondansetron HCl 4 mg 4 mg STK-MED ONCE .ROUTE 11/23/16 08:50 11/23/16 08:51 DC 11/23/16 08:50 4 MG Sodium Chloride (Nss 1000ml) 1,000 ml @ 999 mls/hr Q1H1M STAT IV 11/23/16 09:14 11/23/16 10:15 DC 11/23/16 10:57 999 MLS/HR Albuterol/ Ipratropium (Duoneb) 3 ml NOW STAT INH 11/23/16 09:14 11/23/16 09:15 DC 11/23/16 09:52 3 ML Levofloxacin 750 mg 750 mg NOW ONCE IV 11/23/16 09:15 11/23/16 09:16 DC 11/23/16 09:52 750 MG Linezolid/Prmx (Zyvox / D5W/ Premixed D5W) 300 ml @ 300 mls/hr ONE STAT IV 11/23/16 09:20 11/23/16 10:19 DC 11/23/16 10:56 300 MLS/HR Magnesium Sulfate 1 gm 1 gm NOW STAT IV 11/23/16 09:39 11/23/16 09:40 DC 11/23/16 10:56 1 GM Sodium Chloride (Nss 1000ml) 1,000 ml @ 100 mls/hr Q10H IV 11/23/16 09:44 12/23/16 09:43 11/23/16 13:33 100 MLS/HR ECG Indication: SOB/dyspnea Rate (beats per minute): 123 Rhythm: sinus tachycardia Findings: no ectopy, other (diffuse ST segment depressions noted likely rate related ischemia) Comparison ECG Date: changes are new compared to Nov 10 2016 ED Course 0843: The patient was evaluated in room B4B. A complete history and physical examination were performed. 0844: Ordered Tylenol Tab 650 mg PO, NSS 500 ml @ 999 mls/hr IV. 0914: Ordered Duoneb 3 ml INH, NSS 1000 ml @ 999 mls/hr IV. 0915: Ordered Levaquin / D5W 750 mg IV. 0920: Ordered Linezolid 600 mg/Prmx 300 ml @ 300 mls/hr IV. 0924: I discussed the patient with Dr. Garth Pascal [facility] joss house keeper. He will evaluate the patient for further treatment. 0939: Ordered Magnesium Sulfate 1 gm IV. 0955: I reevaluated the patient and she is resting. The patient verbally expressed understanding and agreement with the treatment plan. The patient will be evaluated for further treatment. Medical Decision Prior records/ancillary studies reviewed. Triage Nursing notes reviewed. Additional history obtained from the patient's family members as well as the prehospital personnel.. The patient's history was concerning for fever. Differential diagnosis: Etiologies such as viral syndrome, otitis, pharyngitis, pneumonia, influenza, meningitis, urinary tract infection, sepsis, bacteremia, as well as others were entertained. The patient is a 76-year-old female who presented to the emergency department for evaluation of severe shortness of breath. The patient has a history of COPD. She has been coughing and presented with a fever as well. She was treated with IV fluids bronchodilator therapy and IV antibiotics in the emergency department. She was reevaluated multiple times. The patient appears to have signs of pneumonia on chest x-ray. Given the patient's point care lactate she was treated with further IV hydration. The patient appears to have some degree of pneumonia with sepsis at this time. I discussed her case with the on-call [facility] hospitalist group. They've agreed to evaluate the patient in the emergency department for further management and disposition. Consults Time Called: [phone] Consulting Physician: Dr. Garth LEWIS joss house keeper Returned Call: [phone] I discussed the patient with Dr. Gatrh LEWIS joss house keeper. He will evaluate the patient for further treatment. Impression Primary Impression: PNA (pneumonia) Additional Impression: Sepsis Critical Care I have personally spent greater than 45 minutes of critical care time in the direct management of this patient. This includes bedside care, interpretation of diagnostic studies, and testing, discussion with consultants, patient, and family members, and other required patient management activities. This 45 minutes is in excess of all separately billable procedures. Scribe Attestation The scribe's documentation has been prepared under my direction and personally reviewed by me in its entirety. I confirm that the note above accurately reflects all work, treatment, procedures, and medical decision making performed by me. Departure Information Dispostion Being Evaluated By Hospitalist Referrals Jaswant Patel M.D. (PCP) Patient Instructions Asthma - [facility], COPD - [facility], Croup - [facility], [facility] Health Problem Qualifiers Primary Impression: PNA (pneumonia) Pneumonia type: due to unspecified organism Laterality: right Lung location : lower lobe of lung Qualified Codes: J18.1 - Lobar pneumonia, unspecified organism Additional Impression: Sepsis Sepsis type: sepsis due to unspecified organism Qualified Codes: A41.9 - Sepsis, unspecified organism
[2016-11-23 09:28] LABS: CREATININE 0.93 mg/dl (0.60-1.20); MAGNESIUM 1.4 mg/dl (1.8-2.4); POTASSIUM 3.2 mmol/L (3.5-5.1)
[2016-11-23 09:30] LABS: BASO % 0.1 %; BASO ABS # 0.03 K/uL (0-0.2); COMPLETE YES; EOS % 0.2 %; HYPOCHROMIA PRESENT; IG% 0.8 %; LYMPH % 9.8 %; LYMPH ABS # 2.84 K/uL (1.2-3.4); NEUT % 84.1 %; POLYCHROMASIA 1+; STOMATOCYTE 1+
[2016-11-23 09:37] LABS: VEN BLD GAS O2 SATURATION 83.7 %; VEN BLOOD GAS BASE EXCESS 2.5 mmol/L
[2016-11-23] MEDS ORDERED: MAGNESIUM SULFATE 1GM / D5W 1 GM BAG IV STA (09:39)
[2016-11-23] MEDS ORDERED: ONDANSETRON INJ 2 MG/ML 2 ML VIAL IV PRN (09:45)
[2016-11-23] MEDS ORDERED: POTASSIUM CHLORIDE 10 MEQ TABCR PO STA (09:46)
--- NOTE | 2016-11-23 10:08 | History and Physical ---
History & Physical Date & Time of Service: November 23, 2016 at 09:56 Chief Complaint: Respiratory Primary Care Physician: Jaswant Patel M.D. History of Present Illness Source: patient Pt is a 76 yo female who presents to the ER with complaints of worsening shortness of breath and productive cough x 2 days. Pt has a hx of COPD and was just recently admitted this month for COPD exacerbation. At that time she was discharged to finish a 7 day course of levaquin and taper of prednisone. Pt states initially feeling better but states for past 2 days she was getting progressively more short of breath at rest as well. Pt wears BiPAP at night and also during the days when shes not feeling well and also dependant on 4L O2. Pt did not note any fevers or chills in past few days. No chest pain, abd pain, N/V/D or urinary symptoms. Pt reports worsening congestion and occasional headaches. Pt follows up with Dr Patel as an OP Past Medical/Surgical History Medical Problems: (1) AC MYOCARDIAL INFARCT,SUBENDO INFARCT,INITIAL EPIS Status: Chronic (2) Acute bronchitis Status: Resolved (3) ANXIETY STATE NOS Status: Chronic (4) AORTIC VALVE DISORDER Status: Chronic (5) ASTHMA, UNSPECIFIED Status: Chronic (6) CARDIOMYOPATH IN OTH DIS Status: Chronic (7) Chest wall pain Status: Resolved (8) CHRONIC RESPIRATORY FAILURE Status: Chronic (9) Clostridium difficile colitis Status: Resolved (10) CONGESTIVE HEART FAILURE NOS Status: Chronic (11) COPD exacerbation Status: Resolved (12) ESOPHAGEAL REFLUX Status: Chronic (13) Herpes zoster Status: Chronic (14) HYPERLIPIDEMIA NEC/NOS Status: Chronic (15) Multiple rib fractures Status: Resolved (16) Multiple rib fractures Status: Resolved (17) Multiple rib fractures Status: Resolved (18) OBSTR CHRONIC BRONCHITIS, W (ACUTE) EXACERBATION Status: Chronic (19) OBSTRUCTIVE SLEEP APNEA (ADULT) (PEDIATRIC) Status: Chronic (20) OSTEOARTHROS NOS-UNSPEC Status: Chronic (21) OSTEOPOROSIS NOS Status: Chronic (22) Rib pain on right side Status: Resolved (23) Shortness of breath Status: Resolved (24) TOBACCO USE DISORDER Status: Chronic Family History FHx: lung disease Social History Smoking Status: Former Smoker Drug Use: none Marital Status: Housing status: lives with family Occupational Status: retired Immunizations History of Influenza Vaccine: No History of Tetanus Vaccine?: No Tetanus Immunization Date: Jun 07, 2003 History of Pneumococcal: Yes Pneumococcal Date: Jun 07, 2004 History of Hepatitis B Vaccine: No Multi-Drug Resistant Organisms History of MDRO: No Allergies Coded Allergies: Zolpidem (Verified Allergy, Intermediate, RASH, 11/23/16) Banana (Verified Allergy, Unknown, 11/23/16) Metoprolol (Verified Adverse Reaction, Severe, BRONCHOSPASM,EXAC.COPD, ) Uncoded Allergies: "CLEANING PRODUCTS" (Allergy, Intermediate, Cleaning Products, 01/18/15) Home Medications Scheduled Amitriptyline HCl (Amitriptyline HCl), 100 MG PO HS Aspirin (Aspirin 81), 81 MG PO DAILY Clopidogrel Bisulfate (Clopidogrel), 75 MG PO DAILY Diltiazem Hcl Extended Release (Diltiazem Hcl Er), 120 MG PO DAILY Docusate Sodium (Docusate Sodium), 10 MG PO BID Ergocalciferol (Vitamin D 27467 Unit), 50,000 INTERUNIT PO Tu@0900 Fluticasone Furoate-Vilanterol (Breo Ellipta 200-25 Mcg/INH), 1 INHA PO DAILY Furosemide (Lasix), 120 MG PO DAILY Hydrocortisone (Topical) (Hydrocortisone), 1 APPLN TOP BID Ipratropium-Albuterol (Combivent Respimat), 1 PUFFS INH QID Ipratropium-Albuterol (Duoneb), 1 TREATMENT INH Q4H Levofloxacin (Levofloxacin), 500 MG PO DAILY@11 Losartan Potassium & Hydrochlo (Hyzaar), 12.5-100 MG PO DAILY Oxycodone Hcl (Oxycontin), 15 MG PO Q12 Oxygen (Oxygen), 4 LITERS NA CONTINOUS Pantoprazole (Protonix), 40 MG PO BID Potassium Ext Rel (Klor-Con), 60 MEQ PO TID Prednisone (Prednisone), 10 MG PO DIRECTED Simvastatin (Zocor), 10 MG PO QPM Topiramate (Topamax), 100 MG PO DAILY Triamcinolone Acet (Aristocort 0.1%), 1 APPLN TOP BID Umeclidinium [place] (Incruse Ellipta), 1 INHA PO DAILY Scheduled PRN Acetaminophen (Tylenol), 650 MG PO Q4 PRN for Pain or Fever Alprazolam (Xanax), 0.5 MG PO Q12 PRN for Anxiety and/or Sedation Baclofen (Lioresal), 10 MG PO TID PRN for spasms Gizmjzanro-Auyksawbjlkrr-Ryryr (Fioricet), 1 TAB PO Q4 PRN for headache Nitroglycerin (Nitrostat), 0.4 MG UT UD PRN for Chest Pain Oxycodone HCl (Oxycodone HCl), 5 MG PO Q3.5H PRN for Pain Review of Systems Constitutional: + chills, + fever Eyes: No eye pain, No worsening of vision ENT: No sore throat, No trouble swallowing Respiratory: + cough, + dyspnea on exertion, + shortness of breath, + sputum, + wheezing, No hemoptysis Cardiovascular: No chest pain, No edema, No orthopnea Abdomen: No diarrhea, No nausea, No pain, No vomiting Musculoskeletal: + joint pain, + muscle pain Genitourinary - Female: No dysuria, No urinary frequency, No urinary urgency Neurologic: No paralysis, No weakness Psychiatric: No anxiety, No depression symptoms Endocrine: No excessive thirst, No fatigue Integumentary: No itch, No rash Physical Exam Vital Signs Date Time Temp Pulse Resp B/P Pulse Ox O2 Delivery O2 Flow Rate FiO2 11/23/16 09:35 123 20 113/59 11/23/16 09:33 97 Nasal Cannula 4.0 11/23/16 09:33 123 20 113/59 11/23/16 08:35 132 11/23/16 08:33 38.9 132 22 94/61 99 Nasal Cannula 6.0 11/23/16 08:33 98 Nasal Cannula 6.0 General Appearance: WD/WN, no apparent distress Head: normocephalic, atraumatic Eyes: normal inspection, PERRL Neck: supple, no adenopathy Respiratory/Chest: + decreased breath sounds, + wheezing Cardiovascular: no edema, no gallop Abdomen/GI: non tender, soft Back: normal inspection, no CVA tenderness Extremities/Musculoskelatal: no calf tenderness, normal capillary refill Neurologic/Psych: alert, normal mood/affect Skin: warm/dry, no rash Diagnostics Laboratory Results Results Past 24 Hours Test 11/23/16 08:45 11/23/16 08:53 11/23/16 09:20 Range/Units White Blood Count 28.86 4.8-10.8 K/uL Red Blood Count 5.23 4.2-5.4 M/uL Hemoglobin 13.6 12.0-16.0 g/dL Hematocrit 43.9 37-47 % Mean Corpuscular Volume 83.9 80-100 fL Mean Corpuscular Hemoglobin 26.0 25-34 pg Mean Corpuscular Hemoglobin Concent 31.0 32-36 g/dl Platelet Count 392 130-400 K/uL Mean Platelet Volume 9.1 7.4-10.4 fL Neutrophils (%) (Auto) 84.1 % Lymphocytes (%) (Auto) 9.8 % Monocytes (%) (Auto) 5.0 % Eosinophils (%) (Auto) 0.2 % Basophils (%) (Auto) 0.1 % Neutrophils # (Auto) 24.28 1.4-6.5 K/uL Lymphocytes # (Auto) 2.84 1.2-3.4 K/uL Monocytes # (Auto) 1.44 0.11-0.59 K/uL Eosinophils # (Auto) 0.05 0-0.5 K/uL Basophils # (Auto) 0.03 0-0.2 K/uL RDW Standard Deviation 44.0 36.4-46.3 fL RDW Coefficient of Variation 14.1 11.5-14.5 % Immature Granulocyte % (Auto) 0.8 % Immature Granulocyte # (Auto) 0.22 0.00-0.02 K/uL Polychromasia 1+ Hypochromasia PRESENT Stomatocytes 1+ Prothrombin Time 11.4 9.0-12.0 SECONDS Prothromb Time International Ratio 1.1 0.9-1.1 Activated Partial Thromboplast Time 24.4 21.0-31.0 SECONDS Partial Thromboplastin Ratio 0.9 Sodium Level 136 136-145 mmol/L Potassium Level 3.2 3.5-5.1 mmol/L Chloride Level 98 98-107 mmol/L Carbon Dioxide Level 29 21-32 mmol/L Anion Gap 9.0 3-11 mmol/L Blood Urea Nitrogen 21 7-18 mg/dl Creatinine 0.93 0.60-1.20 mg/dl Est Creatinine Clear Calc Drug Dose 52.0 ml/min Estimated GFR () 70.2 Estimated GFR (Non- 60.5 BUN/Creatinine Ratio 23.0 10-20 Random Glucose 171 70-99 mg/dl Calcium Level 8.8 8.5-10.1 mg/dl Magnesium Level 1.4 1.8-2.4 mg/dl Total Bilirubin 0.5 0.2-1 mg/dl Aspartate Amino Transf (AST/SGOT) 17 15-37 U/L Alanine Aminotransferase (ALT/SGPT) 23 12-78 U/L Alkaline Phosphatase 81 45-117 U/L Pro-B-Type Natriuretic Peptide 217 0-900 pg/ml Total Protein 6.7 6.4-8.2 gm/dl Albumin 3.3 3.4-5.0 gm/dl Globulin 3.4 2.5-4.0 gm/dl Albumin/Globulin Ratio 1.0 0.9-2 Bedside Lactic Acid Venous 3.17 0.90-1.70 mmol/L Venous Blood pH 7.46 7.36-7.41 Venous Blood Partial Pressure CO2 38 38.0-50.0 mmHg Venous Blood Partial Pressure O2 49 mmHg Venous Blood HCO3 26 mmol/L Venous Blood Oxygen Saturation 83.7 % Venous Blood Base Excess 2.5 mmol/L Microbiology Results 11/23/16 Blood Culture, Received Pending 11/23/16 Blood Culture, Received Pending Impression Assessment and Plan 76 yo female admitted recently with acute exacerbation of COPD now presents with worsening sob x 2 days and found to have right sided infiltrae on CXR Sepsis secondary to HCAP Lactate elev 3.17, elev WBC 28.86 and febrile in ER CXR indicative of right sided infiltrate at base of lung Will cont IVF at this time Initiate levaquin, zosyn and vanc Obtain pancx Duonebs PRN SOB Flutter valve Acute on chronic COPD Exacerbation liked secondary to HCAP CXR as stated above Initiate solumedrol Continued home inhalers Incruse, Breo ,and BiPAP when necessary and daily at bedtime Chronic diastolic congestive heart failure-stable Echocardiogram: 10/23 * Normal biventricular systolic function. * Mild concentric left ventricular hypertrophy. * Left ventricular diastolic dysfunction. * Mild left atrial dilatation. * No significant valvular abnormalities Continue lasix once BP stabilizes Coronary artery disease-stable, nonobstructive CAD on cath in 2005, Dobutamine stress normal 2014 Continued aspirin, plavix, simvastatin Hypertension Hold hyzaar and diltiazem until BP normalizes Chronic Back Pain Secondary to vertebral compression fracture Continue flexeril Continued oxycodone Pt is FULL CODE VTE Prophylaxis VTE Risk Assessment Done? Y/N: Yes Risk Level: Moderate
[2016-11-23] MEDS ORDERED: BUTALBITAL/ACETAMIN/CAFFEINE TAB PO PRN (10:15)
[2016-11-23] MEDS ORDERED: BACLOFEN 10 MG TAB PO PRN (10:15)
[2016-11-23] MEDS ORDERED: POTASSIUM CHLORIDE 10 MEQ TABCR ONE (10:47)
[2016-11-23] MEDS ORDERED: VANCOMYCIN CONSULT ACTIVE PRN (11:45)
[2016-11-23] MEDS ORDERED: PIPERACILL/TAZOBAC CONSULT ACTIVE PRN (11:45)
[2016-11-23] MEDS: ALBUT/IPRATROP 3MG/0.5MG NEB 3 ML VIAL INH SCH ×3 (12:00→19:43)
[2016-11-23] MEDS ORDERED: PIPERACILL/TAZOBAC IV 3.375 GM in DEXTROSE 5% 100ML 100 ML IV SCH (12:00)
[2016-11-23] MEDS: SODIUM CHLORIDE 0.9% 1000ML 1,000 ML IV SCH ×2 (13:33→20:34)
[2016-11-23] MEDS: POTASSIUM CHLORIDE 20 MEQ TABCR PO SCH ×2 (13:34→21:05)
[2016-11-23] MEDS: HEPARIN SOD 5000 UNIT/0.5 ML CARP SQ SCH ×2 (13:36→22:26)
[2016-11-23 14:31] LABS: URINE APPEARANCE CLEAR (CLEAR); URINE BILIRUBIN NEG (NEG); URINE COLOR YELLOW; URINE NITRITE NEG (NEG); URINE PH 5.5 (4.5-7.5); URINE SPECIFIC GRAVITY 1.015 (1.000-1.030); UROBILINOGEN NEG (NEG)
[2016-11-23 14:37] LABS: MANUAL MICROSCOPIC REQUIRED? NO; REVIEW REQ? NO
[2016-11-23] MEDS ORDERED: PIPERACILL/TAZOBAC IV 4.5 GM in DEXTROSE 5% 100ML IV ONE (15:00)
[2016-11-23] MEDS ORDERED: VANCOMYCIN INJ 2,100 MG in SODIUM CHLORIDE 0.9% 500ML 500 ML IV SCH (15:00)
--- NOTE | 2016-11-23 15:28 | Pharmacy Progress Note ---
Pharmacy Antibiotic Consult Date of Service: November 23, 2016. Pharmacy Dosing Scope Pharmacy is consulted to initiate vancomycin and Zosyn IV dosing therapy, order appropriate labs and adjust drug dose/frequency. Subjective The patient is a 76 year old female admitted on November 23, 2016 at 09:46. Pt ER with complaints of worsening shortness of breath and productive cough x 2 days. Pt has a hx of COPD and was just recently admitted this month for COPD exacerbation. At that time she was discharged to finish a 7 day course of levaquin and taper of prednisone. Pt states initially feeling better but states for past 2 days she was getting progressively more short of breath at rest as well. Objective Height (Feet): 5 Height (Inches): 0.00 Weight (Kilograms): 87.000 Lab Results (24hrs): Test 11/23/16 08:45 11/23/16 08:53 11/23/16 09:20 11/23/16 13:03 White Blood Count 28.86 K/uL (4.8-10.8) Red Blood Count 5.23 M/uL (4.2-5.4) Hemoglobin 13.6 g/dL (12.0-16.0) Hematocrit 43.9 % (37-47) Mean Corpuscular Volume 83.9 fL (80-100) Mean Corpuscular Hemoglobin 26.0 pg (25-34) Mean Corpuscular Hemoglobin Concent 31.0 g/dl (32-36) Platelet Count 392 K/uL (130-400) Mean Platelet Volume 9.1 fL (7.4-10.4) Neutrophils (%) (Auto) 84.1 % Lymphocytes (%) (Auto) 9.8 % Monocytes (%) (Auto) 5.0 % Eosinophils (%) (Auto) 0.2 % Basophils (%) (Auto) 0.1 % Neutrophils # (Auto) 24.28 K/uL (1.4-6.5) Lymphocytes # (Auto) 2.84 K/uL (1.2-3.4) Monocytes # (Auto) 1.44 K/uL (0.11-0.59) Eosinophils # (Auto) 0.05 K/uL (0-0.5) Basophils # (Auto) 0.03 K/uL (0-0.2) RDW Standard Deviation 44.0 fL (36.4-46.3) RDW Coefficient of Variation 14.1 % (11.5-14.5) Immature Granulocyte % (Auto) 0.8 % Immature Granulocyte # (Auto) 0.22 K/uL (0.00-0.02) Polychromasia 1+ Hypochromasia PRESENT Stomatocytes 1+ Prothrombin Time 11.4 SECONDS (9.0-12.0) Prothromb Time International Ratio 1.1 (0.9-1.1) Activated Partial Thromboplast Time 24.4 SECONDS (21.0-31.0) Partial Thromboplastin Ratio 0.9 Sodium Level 136 mmol/L (136-145) Potassium Level 3.2 mmol/L (3.5-5.1) Chloride Level 98 mmol/L (98-107) Carbon Dioxide Level 29 mmol/L (21-32) Anion Gap 9.0 mmol/L (3-11) Blood Urea Nitrogen 21 mg/dl (7-18) Creatinine 0.93 mg/dl (0.60-1.20) Est Creatinine Clear Calc Drug Dose 52.0 ml/min Estimated GFR () 70.2 Estimated GFR (Non- 60.5 BUN/Creatinine Ratio 23.0 (10-20) Random Glucose 171 mg/dl (70-99) Calcium Level 8.8 mg/dl (8.5-10.1) Magnesium Level 1.4 mg/dl (1.8-2.4) Total Bilirubin 0.5 mg/dl (0.2-1) Aspartate Amino Transf (AST/SGOT) 17 U/L (15-37) Alanine Aminotransferase (ALT/SGPT) 23 U/L (12-78) Alkaline Phosphatase 81 U/L (45-117) Pro-B-Type Natriuretic Peptide 217 pg/ml (0-900) Total Protein 6.7 gm/dl (6.4-8.2) Albumin 3.3 gm/dl (3.4-5.0) Globulin 3.4 gm/dl (2.5-4.0) Albumin/Globulin Ratio 1.0 (0.9-2) Procalcitonin 0.33 ng/ml (0-0.5) Bedside Lactic Acid Venous 3.17 mmol/L (0.90-1.70) Venous Blood pH 7.46 (7.36-7.41) Venous Blood Partial Pressure CO2 38 mmHg (38.0-50.0) Venous Blood Partial Pressure O2 49 mmHg Venous Blood HCO3 26 mmol/L Venous Blood Oxygen Saturation 83.7 % Venous Blood Base Excess 2.5 mmol/L Lactic Acid Level 4.0 mmol/L (0.4-2.0) Test 11/23/16 13:45 11/23/16 14:48 Urine Color YELLOW Urine Appearance CLEAR (CLEAR) Urine pH 5.5 (4.5-7.5) Urine Specific [place] 1.015 (1.000-1.030) Urine Protein NEG (NEG) Urine Glucose (UA) 1+ (NEG) Urine Ketones NEG (NEG) Urine Occult Blood NEG (NEG) Urine Nitrite NEG (NEG) Urine Bilirubin NEG (NEG) Urine Urobilinogen NEG (NEG) Urine Leukocyte Esterase TRACE (NEG) Urine WBC (Auto) 1-5 /hpf (0-5) Urine RBC (Auto) 0-4 /hpf (0-4) Urine Hyaline Casts (Auto) 0 /lpf (0-5) Urine Epithelial Cells (Auto) 10-20 /lpf (0-5) Urine Bacteria (Auto) NEG (NEG) Micro Results: BC's x 2 pending Recent Pertinent Medications Zyvox 600mg IV and Levaquin 750mg IV given in ERl Assessment & Plan Pt with recent acute exacerbation of COPD, now presents with worsening SOB x 2 days with right sided infiltrates on CXR. Recent hospital stay for same. There is a concern for vancomycin accumulation in an obese patient so will dose cautiously and monitor closely. Vancomycin: Loading dose: 2100 mg IV X 1 dose (~25mg/kg) then: 1350 mg IV every 18 hours. Goal trough level estimate: between 15 - 20 mcg/mL. Peak and trough or random level has been ordered for: 11/25 prior to 2000 dose. Pharmacy will continue to follow and will adjust dose/frequency as necessary. Thank you
[2016-11-23] MEDS ORDERED: FLUT1INH INH (17:39)
[2016-11-23] MEDS: ACETAMINOPHEN 325 MG TAB PO PRN (20:07)
[2016-11-23] MEDS: OXYCODONE HCL 15 MG TABCR (OXYCONTIN) PO SCH (20:34)
[2016-11-23] MEDS: AMITRIPTYLINE HCL 100 MG TAB PO SCH (21:05)
[2016-11-23] MEDS: SIMVASTATIN 10 MG TAB PO SCH (21:06)
[2016-11-23] MEDS: PANTOprazole SOD 40 MG TAB PO SCH (21:07)
[2016-11-23] MEDS: ALPRAZOLAM 0.5 MG TAB PO PRN (21:18)
[2016-11-23] MEDS: PIPERACILL/TAZOBAC IV 4.5 GM in DEXTROSE 5% 100ML IV SCH (22:22)
[2016-11-24] VITALS (17 sets, daily range): BP systolic 114–143; BP diastolic 69–82; PULSE 66–115; TEMP 36.6–36.9; O2SAT 84–99
[2016-11-24] MEDS: ALBUT/IPRATROP 3MG/0.5MG NEB 3 ML VIAL INH SCH ×7 (04:23→23:19)
[2016-11-24] MEDS: PIPERACILL/TAZOBAC IV 4.5 GM in DEXTROSE 5% 100ML IV SCH ×3 (05:49→21:39)
[2016-11-24] MEDS: SODIUM CHLORIDE 0.9% 1000ML 1,000 ML IV SCH ×2 (05:51→17:17)
[2016-11-24] MEDS: HEPARIN SOD 5000 UNIT/0.5 ML CARP SQ SCH ×3 (05:51→21:45)
[2016-11-24 06:08] LABS: HEMATOCRIT 32.8 % (37-47); MEAN CELL VOLUME 85.4 fL (80-100); MEAN CORPUSCULAR HEMOGLOBIN 27.3 pg (25-34); PLATELET COUNT 261 K/uL (130-400); RED BLOOD COUNT 3.84 M/uL (4.2-5.4); WHITE BLOOD COUNT 18.05 K/uL (4.8-10.8)
[2016-11-24 06:22] LABS: BASO % 0.1 %; BASO ABS # 0.02 K/uL (0-0.2); COMPLETE YES; EOS % 0.1 %; IG% 0.6 %; LYMPH % 7.3 %; LYMPH ABS # 1.31 K/uL (1.2-3.4); MONO % 6.6 %; NEUT % 85.3 %
[2016-11-24 06:33] LABS: BLOOD UREA NITROGEN 14 mg/dl (7-18); CALCIUM 7.7 mg/dl (8.5-10.1); CARBON DIOXIDE 28 mmol/L (21-32); CHLORIDE 110 mmol/L (98-107); CREATININE 0.65 mg/dl (0.60-1.20); GLUCOSE 112 mg/dl (70-99); POTASSIUM 4.4 mmol/L (3.5-5.1); SODIUM 142 mmol/L (136-145)
[2016-11-24] MEDS ORDERED: VANCOMYCIN INJ 1,350 MG in SODIUM CHLORIDE 0.9% 250ML 250 ML IV SCH (08:00)
[2016-11-24] MEDS: OXYCODONE HCL 15 MG TABCR (OXYCONTIN) PO SCH ×2 (08:19→21:39)
[2016-11-24] MEDS: CLOPIDOGREL BISULFATE 75 MG TAB PO SCH (08:25)
[2016-11-24] MEDS: TOPIRAMATE 100 MG TAB PO SCH (08:25)
[2016-11-24] MEDS: ASPIRIN 81 MG ECTAB PO SCH (08:25)
[2016-11-24] MEDS: POTASSIUM CHLORIDE 20 MEQ TABCR PO SCH ×3 (08:25→21:40)
[2016-11-24] MEDS: FLUTICASONE FUROATE-VILANTEROL 30 PUFFS/INHALER INH INH SCH (08:26)
[2016-11-24] MEDS: PANTOprazole SOD 40 MG TAB PO SCH ×2 (08:26→21:41)
[2016-11-24] MEDS ORDERED: UMECLIDINIUM-VILANTEROL (ANORO) INH SCH (09:00)
[2016-11-24] MEDS ORDERED: NURSING VERBAL MED ORDER ONE ×4 (09:30→18:00)
[2016-11-24] MEDS: METHYLPREDNISOLONE 80 MG in SYRINGE 0 ML IV SCH ×2 (10:03→17:37)
[2016-11-24] MEDS: LEVOFLOXACIN / D5W 750 MG in PREMIXED IN D5W 150 ML IV SCH (10:03)
[2016-11-24] MEDS: ALPRAZOLAM 0.5 MG TAB PO PRN ×2 (10:14→21:58)
--- NOTE | 2016-11-24 15:37 | Progress Note ---
Subjective Date of Service: November 24, 2016. Subjective Pt evaluation today including: conversation w/ patient, physical exam, chart review, lab review, review of studies, review of inpatient medication list Pt reports feeling short of breath this AM Breathing tx to room No fevers or chills Resting comfortably in bed No acute events overnight Problem List Medical Problems: (1) Back pain Status: Acute (2) Dehydration Status: Acute (3) Left sided chest pain Status: Acute (4) Neck pain Status: Acute (5) PNA (pneumonia) Status: Acute (6) Right-sided chest pain Status: Acute (7) Right-sided chest pain Status: Acute (8) Sepsis Status: Acute (9) SOB (shortness of breath) Status: Acute (10) UTI (urinary tract infection) Status: Acute Review of Systems Constitutional: No chills, No fever Respiratory: + cough, + shortness of breath, + wheezing, No sputum Cardiac: + edema, No PND, No chest pain, No orthopnea Abdomen: No constipation, No diarrhea, No nausea, No pain, No vomiting Musculoskeletal: No joint pain, No muscle pain, No swelling Female : No dysuria, No urinary frequency Neurologic: No memory loss, No numbness/tingling, No paralysis, No weakness Psychiatric: No anhedonism, No anxiety, No depression symptoms Objective Vital Signs Date Time Temp Pulse Resp B/P Pulse Ox O2 Delivery O2 Flow Rate FiO2 11/24/16 12:00 94 BiPAP 4.0 11/24/16 11:54 66 18 95 Nasal Cannula 4.0 11/24/16 11:35 36.9 103 16 143/82 95 Nasal Cannula 4.0 11/24/16 09:05 115 28 94 Nasal Cannula 4.0 11/24/16 08:00 96 BiPAP 4.0 11/24/16 07:56 36.7 95 16 120/78 96 BiPAP 11/24/16 06:05 82 18 97 Nasal Cannula 4.0 11/24/16 05:13 CPAP 4.0 11/24/16 05:01 36.7 98 20 133/70 97 Nasal Cannula 4.0 11/24/16 04:23 114 16 84 Nasal Cannula 4.0 11/24/16 00:00 CPAP 4.0 11/23/16 23:20 36.9 74 20 107/64 100 CPAP 11/23/16 20:00 Nasal Cannula 4.0 11/23/16 19:49 36.8 82 18 120/73 98 Nasal Cannula 4.0 11/23/16 19:43 100 16 97 BiPAP/CPAP 4.0 11/23/16 16:00 Nasal Cannula 4.0 11/23/16 16:00 36.8 90 18 106/62 98 Nasal Cannula 4.0 Physical Exam General Appearance: WD/WN, no apparent distress Eyes: normal inspection, PERRL, EOMI Neck: supple, no adenopathy, thyroid normal, no JVD Respiratory/Chest: chest non-tender, no accessory muscle use, + decreased breath sounds, + wheezing Cardiovascular: regular rate, rhythm, no gallop, no JVD, no murmur Abdomen: normal bowel sounds, non tender, soft, no organomegaly Extremities: normal range of motion, non-tender, normal inspection, + pedal edema Neurologic/Psychiatric: no motor/sensory deficits, alert, normal mood/affect, oriented x 3 Skin: normal color, warm/dry, no rash Laboratory Results Last 24 Hours Test 11/23/16 22:02 11/24/16 05:28 11/24/16 09:50 Troponin I < 0.015 ng/ml < 0.015 ng/ml White Blood Count 18.05 K/uL Red Blood Count 3.84 M/uL Hemoglobin 10.5 g/dL Hematocrit 32.8 % Mean Corpuscular Volume 85.4 fL Mean Corpuscular Hemoglobin 27.3 pg Mean Corpuscular Hemoglobin Concent 32.0 g/dl Platelet Count 261 K/uL Mean Platelet Volume 9.0 fL Neutrophils (%) (Auto) 85.3 % Lymphocytes (%) (Auto) 7.3 % Monocytes (%) (Auto) 6.6 % Eosinophils (%) (Auto) 0.1 % Basophils (%) (Auto) 0.1 % Neutrophils # (Auto) 15.40 K/uL Lymphocytes # (Auto) 1.31 K/uL Monocytes # (Auto) 1.20 K/uL Eosinophils # (Auto) 0.02 K/uL Basophils # (Auto) 0.02 K/uL RDW Standard Deviation 45.4 fL RDW Coefficient of Variation 14.5 % Immature Granulocyte % (Auto) 0.6 % Immature Granulocyte # (Auto) 0.10 K/uL Sodium Level 142 mmol/L Potassium Level 4.4 mmol/L Chloride Level 110 mmol/L Carbon Dioxide Level 28 mmol/L Anion Gap 4.0 mmol/L Blood Urea Nitrogen 14 mg/dl Creatinine 0.65 mg/dl Est Creatinine Clear Calc Drug Dose 74.4 ml/min Estimated GFR () 101.4 Estimated GFR (Non- 87.5 BUN/Creatinine Ratio 22.0 Random Glucose 112 mg/dl Calcium Level 7.7 mg/dl Lactic Acid Level 2.9 mmol/L Assessment and Plan 76 yo female admitted recently with acute exacerbation of COPD now presents with worsening sob x 2 days and found to have right sided infiltrae on CXR Sepsis secondary to HCAP - resolving, improvement in leukocytosis Lactate elev 3.17, elev WBC 28.86 and febrile in ER CXR indicative of right sided infiltrate at base of lung Will cont IVF at this time Initiate levaquin, zosyn and vanc day# 2 Pancx pending Started on solumedrol 80mg q 8 hrs Duonebs PRN SOB Flutter valve Acute on chronic COPD Exacerbation liked secondary to HCAP CXR as stated above Continued home inhalers Incruse, Breo ,and BiPAP when necessary and daily at bedtime Chronic diastolic congestive heart failure-stable Echocardiogram: 10/23 * Normal biventricular systolic function. * Mild concentric left ventricular hypertrophy. * Left ventricular diastolic dysfunction. * Mild left atrial dilatation. * No significant valvular abnormalities Continue lasix once BP stabilizes Coronary artery disease-stable, nonobstructive CAD on cath in 2005, Dobutamine stress normal 2014 Continued aspirin, plavix, simvastatin Hypertension Hold hyzaar and diltiazem until BP normalizes Chronic Back Pain Secondary to vertebral compression fracture Continue flexeril Continued oxycodone Pt is FULL CODE
[2016-11-24] MEDS: DOCUSATE SODIUM 100 MG CAP PO SCH (21:40)
[2016-11-24] MEDS: SIMVASTATIN 10 MG TAB PO SCH (21:40)
[2016-11-24] MEDS: AMITRIPTYLINE HCL 100 MG TAB PO SCH (21:40)
[2016-11-25] VITALS (18 sets, daily range): BP systolic 111–161; BP diastolic 58–87; PULSE 67–107; TEMP 36.5–37.3; O2SAT 95–100
[2016-11-25] MEDS: SODIUM CHLORIDE 0.9% 1000ML 1,000 ML IV SCH (00:53)
[2016-11-25] MEDS: METHYLPREDNISOLONE 80 MG in SYRINGE 0 ML IV SCH ×2 (01:46→10:41)
[2016-11-25] MEDS: HEPARIN SOD 5000 UNIT/0.5 ML CARP SQ SCH ×4 (05:50→21:44)
[2016-11-25] MEDS: PIPERACILL/TAZOBAC IV 4.5 GM in DEXTROSE 5% 100ML IV SCH ×3 (05:50→21:44)
[2016-11-25 06:38] LABS: CALCIUM 8.1 mg/dl (8.5-10.1); CREATININE 0.72 mg/dl (0.60-1.20); POTASSIUM 4.8 mmol/L (3.5-5.1)
[2016-11-25] MEDS: ALBUT/IPRATROP 3MG/0.5MG NEB 3 ML VIAL INH SCH ×4 (07:26→19:20)
[2016-11-25] MEDS: DOCUSATE SODIUM 100 MG CAP PO SCH ×2 (08:10→20:36)
[2016-11-25] MEDS: PANTOprazole SOD 40 MG TAB PO SCH ×2 (08:11→20:37)
[2016-11-25] MEDS: OXYCODONE HCL 15 MG TABCR (OXYCONTIN) PO SCH ×2 (08:11→20:36)
[2016-11-25] MEDS: FUROSEMIDE 40 MG TAB PO SCH ×3 (08:11→17:24)
[2016-11-25] MEDS: CLOPIDOGREL BISULFATE 75 MG TAB PO SCH (08:11)
[2016-11-25] MEDS: TOPIRAMATE 100 MG TAB PO SCH (08:11)
[2016-11-25] MEDS: ASPIRIN 81 MG ECTAB PO SCH (08:11)
[2016-11-25] MEDS: ALPRAZOLAM 0.5 MG TAB PO PRN ×2 (08:12→20:43)
[2016-11-25] MEDS: POTASSIUM CHLORIDE 20 MEQ TABCR PO SCH ×3 (08:12→20:37)
[2016-11-25] MEDS: FLUTICASONE FUROATE-VILANTEROL 30 PUFFS/INHALER INH INH SCH (08:13)
[2016-11-25] MEDS ORDERED: NURSING VERBAL MED ORDER ONE (10:30)
[2016-11-25] MEDS: LEVOFLOXACIN / D5W 750 MG in PREMIXED IN D5W 150 ML IV SCH (10:41)
[2016-11-25] MEDS ORDERED: FUROSEMIDE INJ 60 MG in SYRINGE 0 ML IV SCH (13:45)
--- NOTE | 2016-11-25 14:21 | Hospitalist Progress Note ---
Hospitalist Progress Note Date of Service November 25, 2016. (Kurtis Zheng, RIAN) Subjective Pt evaluation today including: conversation w/ patient, conversation w/ family , physical exam, lab review, review of studies, review of inpatient medication list Pain: denies PO Intake: fair Voiding: no voiding problems still with shortness of breath denies chest pain no fever or chills feels puffy Constitutional: No see HPI, No fever, No chills, No sweats, No weight loss, No weakness, No fatigue, No problem reported Eyes: No see HPI, No worsening of vision, No eye pain, No redness, No discharge, No diplopia, No problem reported ENT: No see HPI, No hearing loss, No unusual epistaxis, No nasal symptoms, No sore throat, No tinnitus, No dental problems, No trouble swallowing, No problem reported Respiratory: + cough, + wheezing, + shortness of breath, + dyspnea on exertion Cardiovascular: + orthopnea, + edema, No see HPI, No chest pain, No PND, No claudication, No palpitations, No problem reported Abdomen: No see HPI, No pain, No nausea, No vomiting, No diarrhea, No constipation, No GI bleeding, No problem reported Musculoskeletal: + swelling Neurologic: + weakness, No see HPI, No memory loss, No paralysis, No numbness/tingling, No vertigo, No balance problems, No problem reported Psychiatric: + anxiety Skin: No see HPI, No rash, No itch, No new/changing skin lesions, No color change, No bleeding, No problem reported (Kurtis Zheng CRNP) Medications reviewed (Kurtis Zheng CRNP) Objective Vital Signs Date Time Temp Pulse Resp B/P Pulse Ox O2 Delivery O2 Flow Rate FiO2 11/25/16 12:35 76 120/78 11/25/16 12:20 72 122/65 11/25/16 12:05 88 121/58 11/25/16 12:00 BiPAP 4.0 11/25/16 11:50 85 134/82 11/25/16 11:37 84 150/65 11/25/16 11:30 102 158/79 11/25/16 11:25 102 151/66 11/25/16 11:13 36.5 73 20 111/68 95 Nasal Cannula 4.0 11/25/16 10:53 99 20 97 Nasal Cannula 5.0 11/25/16 07:59 CPAP 4.0 11/25/16 07:26 102 20 97 Nasal Cannula 5.0 11/25/16 07:19 36.7 81 20 161/87 97 4.0 11/25/16 04:57 36.6 67 18 120/70 97 CPAP 4.0 11/25/16 04:00 BiPAP 4.0 11/25/16 00:00 BiPAP 4.0 11/24/16 23:24 36.8 89 18 129/75 98 Nasal Cannula 4.0 CPAP 11/24/16 23:19 88 24 96 BiPAP/CPAP 4.0 11/24/16 20:00 99 Nasal Cannula 4.0 CPAP 11/24/16 19:44 36.6 83 18 114/69 99 Nasal Cannula 4.0 11/24/16 18:57 84 20 98 Nasal Cannula 4.0 11/24/16 16:00 99 Nasal Cannula 4.0 CPAP 11/24/16 15:50 36.8 93 18 114/69 99 Nasal Cannula 4.0 11/24/16 15:41 100 24 98 BiPAP/CPAP 4.0 (Kurtis Zheng ., [employer]) Physical Exam General Appearance: + mild distress Eyes: sclerae normal ENT: hearing grossly normal, pharynx normal Neck: supple (exam limited due to body habitus) Respiratory/Chest: + crackles, + wheezing Cardiovascular: regular rate, rhythm, no edema, no gallop, no murmur Abdomen: normal bowel sounds, non tender (obese), soft Extremities: + swelling (chronic venous stasis dermatitis) Neurologic/Psychiatric: alert, normal mood/affect, oriented x 3 Skin: normal color, warm/dry (Kurtis Zheng ., [employer]) Laboratory Results Last 24 Hours Test 11/25/16 05:25 Sodium Level 145 mmol/L Potassium Level 4.8 mmol/L Chloride Level 115 mmol/L Carbon Dioxide Level 24 mmol/L Anion Gap 6.0 mmol/L Blood Urea Nitrogen 14 mg/dl Creatinine 0.72 mg/dl Est Creatinine Clear Calc Drug Dose 68.2 ml/min Estimated GFR () 95.6 Estimated GFR (Non- 82.5 BUN/Creatinine Ratio 20.0 Random Glucose 174 mg/dl Calcium Level 8.1 mg/dl (Kurtis Zheng CRNP) Assessment and Plan 76 yo female admitted recently with acute exacerbation of COPD now presents with worsening sob x 2 days and found to have right sided infiltrate on chest x-ray. 1. Sepsis secondary to HCAP - improving -leukocytosis from 28k to 18k. Afebrile -cont levaquin, zosyn, vanco stopped as MRSA nares negative. - blood cultures no growth 2. Acute on chronic COPD Exacerbation liked secondary to HCAP - Duonebs, Incruse, Breo ,and BiPAP when necessary and daily at bedtime - taper steroids from 80mg Q8h to 60mg Q8h 3. Chronic diastolic heart failure now with acute exacerbation - likely secondary to hydration received during sepsis treatment. - 8 lb wt gain. - already on lasix 40mg TID PO. Stop IVF. - lasix 60mg IV x 1 Echocardiogram: 10/23 * Normal biventricular systolic function. * Mild concentric left ventricular hypertrophy. * Left ventricular diastolic dysfunction. * Mild left atrial dilatation. * No significant valvular abnormalities 4. Coronary artery disease-stable, nonobstructive CAD on cath in 2005, Dobutamine stress normal 2014 - Continued aspirin, plavix, simvastatin 5. hypertension - stable for now. Hold hyzaar and diltiazem until BP normalizes - may add one back tomorrow. 6. Weakness - has been refusing PT/OT 7. Pt is FULL CODE 8. DVT prophylaxis with heparin Continued [facility] stay due to: abnormal vital signs, multiple IV medications needed Discharge planning: uncertain (Kurtis Zheng CRNP) History Chart reviewed and I agree with the plan. (Jazmin Karimi MD)
[2016-11-25] MEDS: METHYLPREDNISOLONE IV 60 MG in SYRINGE 0 ML IV SCH (17:24)
[2016-11-25] MEDS ORDERED: VANCOMYCIN TROUGH SCH (19:30)
[2016-11-25] MEDS: AMITRIPTYLINE HCL 100 MG TAB PO SCH (20:36)
[2016-11-25] MEDS: SIMVASTATIN 10 MG TAB PO SCH (20:36)
[2016-11-26] VITALS (13 sets, daily range): BP systolic 117–164; BP diastolic 60–80; PULSE 61–102; TEMP 36.5–36.9; O2SAT 94–100
[2016-11-26] MEDS: METHYLPREDNISOLONE IV 60 MG in SYRINGE 0 ML IV SCH ×3 (02:32→17:17)
[2016-11-26] MEDS: PIPERACILL/TAZOBAC IV 4.5 GM in DEXTROSE 5% 100ML IV SCH ×3 (05:46→21:49)
[2016-11-26] MEDS: HEPARIN SOD 5000 UNIT/0.5 ML CARP SQ SCH ×3 (05:48→21:49)
[2016-11-26] MEDS: ALBUT/IPRATROP 3MG/0.5MG NEB 3 ML VIAL INH SCH ×4 (06:51→19:26)
[2016-11-26 08:09] LABS: COMPLETE YES; HEMATOCRIT 33.6 % (37-47); IG% 0.3 %; LYMPH % 4.8 %; LYMPH ABS # 0.57 K/uL (1.2-3.4); MEAN CELL VOLUME 84.8 fL (80-100); MEAN CORPUSCULAR HEMOGLOBIN 26.8 pg (25-34); MEAN CORPUSCULAR HGB CONC 31.5 g/dl (32-36); MEAN PLATELET VOLUME 9.1 fL (7.4-10.4); MONO % 2.2 %; NEUT % 92.7 %; PLATELET COUNT 315 K/uL (130-400); RED BLOOD COUNT 3.96 M/uL (4.2-5.4); WHITE BLOOD COUNT 11.89 K/uL (4.8-10.8)
[2016-11-26] MEDS: DOCUSATE SODIUM 100 MG CAP PO SCH ×2 (08:22→20:48)
[2016-11-26 08:25] LABS: BUN/CREATININE RATIO 19.4 (10-20); CREATININE 0.95 mg/dl (0.60-1.20); POTASSIUM 4.4 mmol/L (3.5-5.1)
[2016-11-26 08:36] LABS: CALCIUM 8.7 mg/dl (8.5-10.1)
[2016-11-26] MEDS: ALPRAZOLAM 0.5 MG TAB PO PRN ×2 (08:45→20:48)
[2016-11-26] MEDS: CLOPIDOGREL BISULFATE 75 MG TAB PO SCH (08:45)
[2016-11-26] MEDS: ASPIRIN 81 MG ECTAB PO SCH (08:45)
[2016-11-26] MEDS: PANTOprazole SOD 40 MG TAB PO SCH ×2 (08:45→20:48)
[2016-11-26] MEDS: OXYCODONE HCL 15 MG TABCR (OXYCONTIN) PO SCH ×2 (08:45→20:48)
[2016-11-26] MEDS: FUROSEMIDE 40 MG TAB PO SCH ×3 (08:46→17:18)
[2016-11-26] MEDS: POTASSIUM CHLORIDE 20 MEQ TABCR PO SCH ×3 (08:46→20:48)
[2016-11-26] MEDS: TOPIRAMATE 100 MG TAB PO SCH (08:46)
[2016-11-26] MEDS: FLUTICASONE FUROATE-VILANTEROL 30 PUFFS/INHALER INH INH SCH (08:46)
[2016-11-26] MEDS: LEVOFLOXACIN / D5W 750 MG in PREMIXED IN D5W 150 ML IV SCH (10:32)
--- NOTE | 2016-11-26 12:07 | Hospitalist Progress Note ---
Hospitalist Progress Note Date of Service November 26, 2016. (Kurtis Zheng CRNP) Subjective Pt evaluation today including: conversation w/ patient, physical exam, lab review, review of studies, review of inpatient medication list Pain: denies PO Intake: tolerating po Voiding: no voiding problems still SOB and SOLIS although getting better no chest pain very weak - has been refusing therapy (Kurtis Zheng CRNP) Medications reviewed (Kurtis Zheng CRNP) Objective Vital Signs Date Time Temp Pulse Resp B/P Pulse Ox O2 Delivery O2 Flow Rate FiO2 11/26/16 11:29 36.8 84 22 117/60 100 BiPAP 11/26/16 10:54 95 20 99 Nasal Cannula 4.0 11/26/16 07:52 BiPAP 4.0 11/26/16 07:20 36.9 102 20 164/76 99 Nasal Cannula 4.0 11/26/16 06:51 73 20 94 BiPAP/CPAP 4.0 11/26/16 04:48 36.5 62 20 123/75 96 BiPAP 11/26/16 04:00 97 CPAP 4.0 11/26/16 00:45 36.7 82 20 138/76 97 BiPAP 11/26/16 00:00 97 CPAP 4.0 11/25/16 22:34 36.5 84 20 112/66 100 BiPAP 11/25/16 19:59 Nasal Cannula 4.0 BiPAP CPAP 11/25/16 19:20 81 20 97 BiPAP/CPAP 4.0 11/25/16 19:13 36.6 96 20 135/70 96 BiPAP 11/25/16 17:23 107 138/69 96 BiPAP 11/25/16 16:06 BiPAP 4.0 11/25/16 15:45 86 20 99 BiPAP/CPAP 3.0 11/25/16 15:02 37.3 96 20 122/75 98 Nasal Cannula 4.0 11/25/16 12:35 76 120/78 11/25/16 12:20 72 122/65 11/25/16 12:05 88 121/58 11/25/16 12:00 BiPAP 4.0 (Kurtis Zheng CRNP) Physical Exam General Appearance: no apparent distress Eyes: PERRL, sclerae normal ENT: hearing grossly normal, pharynx normal Neck: supple, no JVD Respiratory/Chest: chest non-tender, no respiratory distress, + decreased breath sounds, + wheezing Cardiovascular: regular rate, rhythm, no murmur Abdomen: normal bowel sounds, non tender, soft (obese) Extremities: non-tender, + pedal edema (trace to plus one) Neurologic/Psychiatric: alert, normal mood/affect, oriented x 3 Skin: normal color, warm/dry, no rash (Kurtis Zheng, RIAN) Laboratory Results Last 24 Hours Test 11/26/16 07:20 11/26/16 07:48 White Blood Count 11.89 K/uL Red Blood Count 3.96 M/uL Hemoglobin 10.6 g/dL Hematocrit 33.6 % Mean Corpuscular Volume 84.8 fL Mean Corpuscular Hemoglobin 26.8 pg Mean Corpuscular Hemoglobin Concent 31.5 g/dl Platelet Count 315 K/uL Mean Platelet Volume 9.1 fL Neutrophils (%) (Auto) 92.7 % Lymphocytes (%) (Auto) 4.8 % Monocytes (%) (Auto) 2.2 % Eosinophils (%) (Auto) 0.0 % Basophils (%) (Auto) 0.0 % Neutrophils # (Auto) 11.03 K/uL Lymphocytes # (Auto) 0.57 K/uL Monocytes # (Auto) 0.26 K/uL Eosinophils # (Auto) 0.00 K/uL Basophils # (Auto) 0.00 K/uL RDW Standard Deviation 45.2 fL RDW Coefficient of Variation 14.4 % Immature Granulocyte % (Auto) 0.3 % Immature Granulocyte # (Auto) 0.03 K/uL Sodium Level 144 mmol/L Potassium Level 4.4 mmol/L Chloride Level 109 mmol/L Carbon Dioxide Level 25 mmol/L Anion Gap 10.0 mmol/L Blood Urea Nitrogen 18 mg/dl Creatinine 0.95 mg/dl Est Creatinine Clear Calc Drug Dose 52.0 ml/min Estimated GFR () 68.4 Estimated GFR (Non- 59.0 BUN/Creatinine Ratio 19.4 Random Glucose 190 mg/dl Calcium Level 8.7 mg/dl (Kurtis Zheng, RIAN) Diagnostic Results Reported Home Medications Medications Dose Route/Sig Max Daily Dose Days Date Category Dose Instructions Breo Ellipta (Fluticasone Furoate-Vilanterol) 1 Inh Inh 1 Puff INH DAILY 11/23/16 Reported 100/25 Prednisone 10 Mg Tab 10 Mg PO DIRECTED 30 11/15/16 Rx 50mg x 2 days 40 x 2 day 30x 2 days 20 x 2 days end at 10 mg daily Vitamin D 56113 Unit (Ergocalciferol) 50,000 Unit Cap 50,000 Interunit PO TU@0900 90 11/15/16 Rx Levofloxacin 500 Mg Tab 500 Mg PO DAILY@11 1 11/15/16 Rx Tylenol (Acetaminophen) 325 Mg Tab 650 Mg PO Q4 PRN 11/10/16 Reported Hyzaar (Losartan Potassium & Hydrochlo) 1 Tab Tab 12.5-100 Mg PO DAILY 90 10/23/16 Reported Xanax (Alprazolam) 0.5 Mg Tab 0.5 Mg PO Q12 PRN 10/23/16 Reported Lioresal (Baclofen) 10 Mg Tab 10 Mg PO TID PRN 10/23/16 Reported Topamax (Topiramate) 100 Mg Tab 100 Mg PO DAILY 10/23/16 Reported Oxycodone HCl 5 Mg Tab 5 Mg PO Q3.5H PRN 06/17/16 Reported Oxycontin (Oxycodone Hcl) 15 Mg Tab 15 Mg PO Q12 06/17/16 Reported Duoneb (Ipratropium-Albuterol) 3 Ml Nebu 1 Treatment INH Q4H 06/17/16 Reported Hydrocortisone (Hydrocortisone (Topical)) 2.5 % Lot 1 Appln TOP BID 10 06/17/16 Reported Combivent Respimat (Ipratropium-Albuterol) 1 Aer Aer 1 Puffs INH QID 06/17/16 Reported Fioricet (Hstwypbqep-Lzxvjhvrfdfll-Cjdcp) 1 Cap Cap 1 Tab PO Q4 PRN 06/17/16 Reported Aspirin 81 (Aspirin) 81 Mg Tab 81 Mg PO DAILY 06/17/16 Reported Docusate Sodium 100 Mg Cap 10 Mg PO BID 05/23/16 Rx Incruse Ellipta (Umeclidinium [place]) 62.5 Mcg/Inh Inh 1 Inha PO DAILY 30 05/23/16 Rx Klor-Con (Potassium Chloride) 20 Meq Tabcr 60 Meq PO TID 05/15/16 Reported Protonix (Pantoprazole Sodium) 40 Mg Tab 40 Mg PO BID 01/18/15 Reported Diltiazem Hcl Er (Diltiazem Hcl Extended Release) 120 Mg Cap 120 Mg PO DAILY 01/18/15 Reported Amitriptyline HCl 100 Mg Tab 100 Mg PO HS 01/18/15 Reported Clopidogrel (Clopidogrel Bisulfate) 75 Mg Tab 75 Mg PO DAILY 01/18/15 Reported Aristocort 0.1% (Triamcinolone Acet) 90 Appln/30 Gm Cr 1 Appln TOP BID 01/19/13 Reported APPLY SPARINGLY TO AFFECTED AREA(S). Nitrostat (Nitroglycerin) 0.4 Mg Sub 0.4 Mg UT UD PRN 01/19/[address] ONE TABLET UNDER THE TONGUE EVERY MINUTES FOR UP TO 3 DOSES IF NEEDED FOR CHEST PAIN. Oxygen Gas 4 Liters NA CONTINOUS 01/19/13 Reported Zocor (Simvastatin) 10 Mg Tab 10 Mg PO QPM 04/19/11 Reported Lasix (Furosemide) 40 Mg Tab 120 Mg PO DAILY 04/19/11 Reported (Kurtis Zheng, RIAN) Assessment and Plan 76 yo female admitted recently with acute exacerbation of COPD now presents with worsening sob x 2 days and found to have right sided infiltrate on chest x-ray. 1. Sepsis secondary to HCAP - improving -leukocytosis from 28k initially to 11k today. Afebrile -change levaquin to PO, continue zosyn until WBC normalizes, vanco stopped as MRSA nares negative. - blood cultures no growth 2. Acute on chronic COPD Exacerbation liked secondary to HCAP - Duonebs, Incruse, Breo ,and BiPAP when necessary and daily at bedtime - continue solumedrol 60mg Q8h - taper tomorrow 3. Chronic diastolic heart failure now with acute exacerbation - likely secondary to hydration received during sepsis treatment. - 8 lb wt gain initially. weight down 6 lbs from yesterday - Continue lasix 40mg TID PO. - give one more IV dose lasix 40mg IV x 1today 4. Coronary artery disease-stable, nonobstructive CAD on cath in 2005, Dobutamine stress normal 2014 - Continued aspirin, plavix, simvastatin 5. hypertension - increasing slightly - resume home losartan. Continue to hold Cardizem. 6. Weakness - has been refusing PT/OT 7. Pt is FULL CODE 8. DVT prophylaxis with heparin 9. Disposition - ELS 2 to 3 midnight - PT, continue to taper steroids and transition antibiotics to PO Continued [facility] stay due to: multiple IV medications needed Discharge planning: home with home health (Kurtis Zheng, RIAN) History Chart reviewed and I agree with the plan of care (Jazmin Karimi MD)
[2016-11-26] MEDS ORDERED: FUROSEMIDE INJ 40 MG in SYRINGE 0 ML IV ONE (12:15)
[2016-11-26] MEDS: FLUCONAZOLE 100 MG TAB PO SCH (13:21)
[2016-11-26] MEDS: LOSARTAN POTASSIUM 50 MG TAB PO SCH (13:21)
[2016-11-26] MEDS: AMITRIPTYLINE HCL 100 MG TAB PO SCH (20:47)
[2016-11-26] MEDS: SIMVASTATIN 10 MG TAB PO SCH (20:48)
[2016-11-27] VITALS (13 sets, daily range): BP systolic 108–149; BP diastolic 55–87; PULSE 65–99; TEMP 36.1–37; O2SAT 95–100
[2016-11-27] MEDS: METHYLPREDNISOLONE IV 60 MG in SYRINGE 0 ML IV SCH (01:33)
[2016-11-27] MEDS: HEPARIN SOD 5000 UNIT/0.5 ML CARP SQ SCH ×3 (05:33→21:39)
[2016-11-27] MEDS: PIPERACILL/TAZOBAC IV 4.5 GM in DEXTROSE 5% 100ML IV SCH ×3 (05:33→21:39)
[2016-11-27 05:59] LABS: COMPLETE YES; HEMATOCRIT 32.5 % (37-47); IG% 0.6 %; LYMPH ABS # 0.43 K/uL (1.2-3.4); MEAN CELL VOLUME 84.2 fL (80-100); MEAN CORPUSCULAR HEMOGLOBIN 25.9 pg (25-34); MEAN CORPUSCULAR HGB CONC 30.8 g/dl (32-36); MEAN PLATELET VOLUME 8.9 fL (7.4-10.4); MONO % 5.4 %; PLATELET COUNT 332 K/uL (130-400); RED BLOOD COUNT 3.86 M/uL (4.2-5.4); WHITE BLOOD COUNT 8.53 K/uL (4.8-10.8)
[2016-11-27 06:33] LABS: BUN/CREATININE RATIO 23.2 (10-20); CALCIUM 8.2 mg/dl (8.5-10.1); CREATININE 0.78 mg/dl (0.60-1.20)
[2016-11-27] MEDS: ALBUT/IPRATROP 3MG/0.5MG NEB 3 ML VIAL INH SCH ×4 (07:03→19:42)
[2016-11-27] MEDS: DOCUSATE SODIUM 100 MG CAP PO SCH ×2 (08:31→20:38)
[2016-11-27] MEDS: FLUTICASONE FUROATE-VILANTEROL 30 PUFFS/INHALER INH INH SCH (08:31)
[2016-11-27] MEDS: ALPRAZOLAM 0.5 MG TAB PO PRN ×2 (08:32→20:37)
[2016-11-27] MEDS: ASPIRIN 81 MG ECTAB PO SCH (08:32)
[2016-11-27] MEDS: CLOPIDOGREL BISULFATE 75 MG TAB PO SCH (08:32)
[2016-11-27] MEDS: PANTOprazole SOD 40 MG TAB PO SCH ×2 (08:32→20:37)
[2016-11-27] MEDS: TOPIRAMATE 100 MG TAB PO SCH (08:32)
[2016-11-27] MEDS: OXYCODONE HCL 15 MG TABCR (OXYCONTIN) PO SCH ×2 (08:32→20:37)
[2016-11-27] MEDS: LOSARTAN POTASSIUM 50 MG TAB PO SCH (08:33)
[2016-11-27] MEDS: FLUCONAZOLE 100 MG TAB PO SCH (08:33)
[2016-11-27] MEDS: FUROSEMIDE 40 MG TAB PO SCH ×3 (08:34→17:22)
[2016-11-27] MEDS: POTASSIUM CHLORIDE 20 MEQ TABCR PO SCH ×3 (08:34→20:38)
[2016-11-27] MEDS: LEVOFLOXACIN 750 MG TAB PO SCH (10:41)
[2016-11-27] MEDS: METHYLPREDNISOLONE IV 40 MG in SYRINGE 0 ML IV SCH ×2 (10:41→17:21)
--- NOTE | 2016-11-27 13:57 | Hospitalist Progress Note ---
Hospitalist Progress Note Date of Service November 27, 2016. (Kurtis Zheng ., RIAN) Subjective Pt evaluation today including: conversation w/ patient, conversation w/ family , physical exam, lab review, review of studies, review of inpatient medication list Pain: denies PO Intake: tolerating Voiding: no voiding problems not as short of breath today. "not as puffy". [place] [facility] [place] no chest pain, fever, chills. Feels like can participate in PT now. Constitutional: No see HPI, No fever, No chills, No sweats, No weight loss, No weakness, No fatigue, No problem reported Respiratory: + cough, + shortness of breath Cardiovascular: No see HPI, No chest pain, No orthopnea, No PND, No edema, No claudication, No palpitations, No problem reported Abdomen: No see HPI, No pain, No nausea, No vomiting, No diarrhea, No constipation, No GI bleeding, No problem reported Musculoskeletal: No see HPI, No joint pain, No muscle pain, No swelling, No calf pain, No problem reported Neurologic: No see HPI, No memory loss, No paralysis, No weakness, No numbness/tingling, No vertigo, No balance problems, No problem reported Skin: No see HPI, No rash, No itch, No new/changing skin lesions, No color change, No bleeding, No problem reported (Kurtis Zheng, RIAN) Medications reviewed (Kurtis Zheng, RIAN) Objective Vital Signs Date Time Temp Pulse Resp B/P Pulse Ox O2 Delivery O2 Flow Rate FiO2 11/27/16 07:07 36.1 75 16 148/87 99 BiPAP 11/27/16 07:03 68 20 99 BiPAP/CPAP 4.0 11/27/16 04:31 36.5 84 20 112/55 95 CPAP 11/27/16 04:00 Nasal Cannula 4.0 CPAP 11/27/16 00:20 36.8 78 20 130/77 98 4.0 11/27/16 00:00 Nasal Cannula 4.0 CPAP 11/26/16 20:05 Nasal Cannula 4.0 CPAP 11/26/16 19:58 36.5 82 20 128/73 97 4.0 11/26/16 19:26 73 14 98 BiPAP/CPAP 4.0 11/26/16 16:05 87 14 99 Nasal Cannula 4.0 11/26/16 16:00 BiPAP 4.0 11/26/16 15:08 36.9 61 22 127/80 100 Nasal Cannula 4.0 BiPAP 11/26/16 13:00 85 142/74 11/26/16 12:00 BiPAP 4.0 11/26/16 11:29 36.8 84 22 117/60 100 BiPAP 11/26/16 10:54 95 20 99 Nasal Cannula 4.0 11/26/16 07:52 BiPAP 4.0 (Kurtis Zheng, RIAN) Physical Exam General Appearance: no apparent distress (does not look nearly as SOB today) Eyes: PERRL, sclerae normal ENT: hearing grossly normal, pharynx normal Neck: supple, no JVD Respiratory/Chest: + decreased breath sounds, + wheezing (lungs with better air movement) Cardiovascular: regular rate, rhythm, no JVD, + systolic murmur Abdomen: non tender, soft (obese) Extremities: non-tender, normal inspection, + pedal edema, + swelling (+2 BLE edema, less than yesterday) Neurologic/Psychiatric: alert, normal mood/affect, oriented x 3 Skin: normal color, warm/dry, no rash (Kurtis Zheng, RIAN) Laboratory Results Last 24 Hours Test 11/26/16 07:48 11/27/16 05:12 11/27/16 05:13 White Blood Count 11.89 K/uL 8.53 K/uL Red Blood Count 3.96 M/uL 3.86 M/uL Hemoglobin 10.6 g/dL 10.0 g/dL Hematocrit 33.6 % 32.5 % Mean Corpuscular Volume 84.8 fL 84.2 fL Mean Corpuscular Hemoglobin 26.8 pg 25.9 pg Mean Corpuscular Hemoglobin Concent 31.5 g/dl 30.8 g/dl Platelet Count 315 K/uL 332 K/uL Mean Platelet Volume 9.1 fL 8.9 fL Neutrophils (%) (Auto) 92.7 % 89.0 % Lymphocytes (%) (Auto) 4.8 % 5.0 % Monocytes (%) (Auto) 2.2 % 5.4 % Eosinophils (%) (Auto) 0.0 % 0.0 % Basophils (%) (Auto) 0.0 % 0.0 % Neutrophils # (Auto) 11.03 K/uL 7.59 K/uL Lymphocytes # (Auto) 0.57 K/uL 0.43 K/uL Monocytes # (Auto) 0.26 K/uL 0.46 K/uL Eosinophils # (Auto) 0.00 K/uL 0.00 K/uL Basophils # (Auto) 0.00 K/uL 0.00 K/uL RDW Standard Deviation 45.2 fL 44.3 fL RDW Coefficient of Variation 14.4 % 14.3 % Immature Granulocyte % (Auto) 0.3 % 0.6 % Immature Granulocyte # (Auto) 0.03 K/uL 0.05 K/uL Sodium Level 144 mmol/L 144 mmol/L Potassium Level 4.4 mmol/L 4.0 mmol/L Chloride Level 109 mmol/L 109 mmol/L Carbon Dioxide Level 25 mmol/L 27 mmol/L Anion Gap 10.0 mmol/L 8.0 mmol/L Blood Urea Nitrogen 18 mg/dl 18 mg/dl Creatinine 0.95 mg/dl 0.78 mg/dl Est Creatinine Clear Calc Drug Dose 52.0 ml/min 63.3 ml/min Estimated GFR () 68.4 86.8 Estimated GFR (Non- 59.0 74.9 BUN/Creatinine Ratio 19.4 23.2 Random Glucose 190 mg/dl 218 mg/dl Calcium Level 8.7 mg/dl 8.2 mg/dl (Kurtis Zheng ., RIAN) Assessment and Plan 76 yo female admitted recently with acute exacerbation of COPD now presents with worsening sob x 2 days and found to have right sided infiltrate on chest x-ray. 1. Sepsis secondary to HCAP - improving -leukocytosis from 28k initially. finally normalized today at 8.6. Afebrile - cont levaquin PO, continue zosyn another day or so, vanco stopped as MRSA nares negative. - blood cultures no growth 2. Acute on chronic COPD Exacerbation liked secondary to HCAP - not as short of breath - Duonebs, Incruse, Breo ,and BiPAP when necessary and daily at bedtime - taper solumedrol to 40mg Q8h 3. Chronic diastolic heart failure now with acute exacerbation - improving - likely secondary to hydration received during sepsis treatment. - weight almost back down to admit weight - Continue lasix 40mg TID PO. 4. Coronary artery disease-stable, nonobstructive CAD on cath in 2005, Dobutamine stress normal 2014 - Continued aspirin, plavix, simvastatin 5. hypertension - increasing slightly - resume home losartan. Continue to hold Cardizem. 6. Weakness - has been refusing PT/OT 7. Pt is FULL CODE 8. DVT prophylaxis with heparin 9. Hx of C.Diff - has some diarrhea - C. Diff negative 10. Disposition - Likely 2 more nights - PT (has been refusing), continue to taper steroids and transition antibiotics to PO Continued [facility] stay due to: multiple IV medications needed Discharge planning: home with home health (Kurtis Zheng CRNP) History Chart reviewed and I agree with the plan of care. (Jazmin Karimi MD)
--- NOTE | 2016-11-27 16:31 | Pulmonary Consultation ---
History General Date of Service: November 27, 2016. Stated Complaint: Hcap,Sob HPI The patient is a 76 year old female with h/o advanced COPD, on 4 liters NC, nocturnal BIPAP and as needed during the day, multiple admission for respiratory failure, last admission November 10- , states that she never recovered, and returned to ED on 11/23 to ED for worsening shortness of breath, cough, fever, leukocytosis of 28. She finished a 7 day course of Levaquin. In the hospital she has been on Levaquin, Zosyn and Vancomycin, and today she finally seemed to improve. Home, she takes Breo Ellipta and Incruse Ellipta. She also takes samples of Daliresp for approx 1 year. Review of Systems Constitutional: reports: fever Eyes: reports: no symptoms Cardiovascular: reports: edema Respiratory: reports: SOLIS, cough, shortness of breath, wheezing Gastrointestinal: reports: no symptoms Genitourinary - Female: reports: no symptoms Musculoskeletal: reports: no symptoms Integumentary: reports: no symptoms Neurologic: reports: no symptoms Hematologic / Lymphatic: no symptoms Past Medical History Past Medical History: congestive heart failure (Diastolic), COPD Family History FHx: lung disease Social History Hx Tobacco Use In Past Year?: No Smoking Status: Former Smoker Marital status: Housing status: lives with family Occupational Status: retired Immunizations History of Influenza Vaccine: No History of Tetanus Vaccine?: No Tetanus Immunization Date: Jun 07, 2003 History of Pneumococcal: Yes Pneumococcal Date: Jun 07, 2004 History of Hepatitis B Vaccine: No History of MDRO History of MDRO: No Allergies Coded Allergies: Zolpidem (Verified Allergy, Intermediate, RASH, 11/23/16) Banana (Verified Allergy, Unknown, 11/23/16) Metoprolol (Verified Adverse Reaction, Severe, BRONCHOSPASM,EXAC.COPD, ) Uncoded Allergies: "CLEANING PRODUCTS" (Allergy, Intermediate, Cleaning Products, 01/18/15) Current Medications Reported Home Medications Medications Dose Route/Sig Max Daily Dose Days Date Category Dose Instructions Breo Ellipta (Fluticasone Furoate-Vilanterol) 1 Inh Inh 1 Puff INH DAILY 11/23/16 Reported 100/25 Prednisone 10 Mg Tab 10 Mg PO DIRECTED 30 11/15/16 Rx 50mg x 2 days 40 x 2 day 30x 2 days 20 x 2 days end at 10 mg daily Vitamin D 72899 Unit (Ergocalciferol) 50,000 Unit Cap 50,000 Interunit PO TU@0900 90 11/15/16 Rx Levofloxacin 500 Mg Tab 500 Mg PO DAILY@11 1 11/15/16 Rx Tylenol (Acetaminophen) 325 Mg Tab 650 Mg PO Q4 PRN 11/10/16 Reported Hyzaar (Losartan Potassium & Hydrochlo) 1 Tab Tab 12.5-100 Mg PO DAILY 90 10/23/16 Reported Xanax (Alprazolam) 0.5 Mg Tab 0.5 Mg PO Q12 PRN 10/23/16 Reported Lioresal (Baclofen) 10 Mg Tab 10 Mg PO TID PRN 10/23/16 Reported Topamax (Topiramate) 100 Mg Tab 100 Mg PO DAILY 10/23/16 Reported Oxycodone HCl 5 Mg Tab 5 Mg PO Q3.5H PRN 06/17/16 Reported Oxycontin (Oxycodone Hcl) 15 Mg Tab 15 Mg PO Q12 06/17/16 Reported Duoneb (Ipratropium-Albuterol) 3 Ml Nebu 1 Treatment INH Q4H 06/17/16 Reported Hydrocortisone (Hydrocortisone (Topical)) 2.5 % Lot 1 Appln TOP BID 10 06/17/16 Reported Combivent Respimat (Ipratropium-Albuterol) 1 Aer Aer 1 Puffs INH QID 06/17/16 Reported Fioricet (Axcnnvylyy-Qwyijmtcqgkaj-Ewdxq) 1 Cap Cap 1 Tab PO Q4 PRN 06/17/16 Reported Aspirin 81 (Aspirin) 81 Mg Tab 81 Mg PO DAILY 06/17/16 Reported Docusate Sodium 100 Mg Cap 10 Mg PO BID 05/23/16 Rx Incruse Ellipta (Umeclidinium [place]) 62.5 Mcg/Inh Inh 1 Inha PO DAILY 30 05/23/16 Rx Klor-Con (Potassium Chloride) 20 Meq Tabcr 60 Meq PO TID 05/15/16 Reported Protonix (Pantoprazole Sodium) 40 Mg Tab 40 Mg PO BID 01/18/15 Reported Diltiazem Hcl Er (Diltiazem Hcl Extended Release) 120 Mg Cap 120 Mg PO DAILY 01/18/15 Reported Amitriptyline HCl 100 Mg Tab 100 Mg PO HS 01/18/15 Reported Clopidogrel (Clopidogrel Bisulfate) 75 Mg Tab 75 Mg PO DAILY 01/18/15 Reported Aristocort 0.1% (Triamcinolone Acet) 90 Appln/30 Gm Cr 1 Appln TOP BID 01/19/13 Reported APPLY SPARINGLY TO AFFECTED AREA(S). Nitrostat (Nitroglycerin) 0.4 Mg Sub 0.4 Mg UT UD PRN 01/19/[address] ONE TABLET UNDER THE TONGUE EVERY MINUTES FOR UP TO 3 DOSES IF NEEDED FOR CHEST PAIN. Oxygen Gas 4 Liters NA CONTINOUS 01/19/13 Reported Zocor (Simvastatin) 10 Mg Tab 10 Mg PO QPM 04/19/11 Reported Lasix (Furosemide) 40 Mg Tab 120 Mg PO DAILY 04/19/11 Reported Physical Physical Exam Vital Signs: Date Time Temp Pulse Resp B/P Pulse Ox O2 Delivery O2 Flow Rate FiO2 11/27/16 15:15 36.6 88 18 134/73 97 BiPAP 11/27/16 14:09 86 98 11/27/16 12:31 37.0 99 20 137/67 100 11/27/16 12:07 BiPAP 4.0 11/27/16 11:12 65 20 98 Nasal Cannula 4.0 11/27/16 08:00 BiPAP 4.0 11/27/16 07:07 36.1 75 16 148/87 99 BiPAP 11/27/16 07:03 68 20 99 BiPAP/CPAP 4.0 11/27/16 04:31 36.5 84 20 112/55 95 CPAP 11/27/16 04:00 Nasal Cannula 4.0 CPAP 11/27/16 00:20 36.8 78 20 130/77 98 4.0 11/27/16 00:00 Nasal Cannula 4.0 CPAP 11/26/16 20:05 Nasal Cannula 4.0 CPAP 11/26/16 19:58 36.5 82 20 128/73 97 4.0 11/26/16 19:26 73 14 98 BiPAP/CPAP 4.0 11/26/16 16:05 87 14 99 Nasal Cannula 4.0 11/26/16 16:00 BiPAP 4.0 General Appearance: mild distress, obese Eyes: PERRLA Neck: TRACHEA MIDLINE, NO STRIDOR Respiratory: other (Diminished breath sounds b/l, few basilar rales) Cardiovasular: REGULAR RATE/RHYTHM, NORMAL S1S2 Abdomen: NON TENDER, NO GUARDING Lower Extremities: edema (b/l) Neuro: ALERT, ORIENTED x 3 Psychiatric: NORMAL AFFECT Diagnostics Labs Results Past 24 Hours Test 11/27/16 05:12 11/27/16 05:13 Range/Units White Blood Count 8.53 4.8-10.8 K/uL Red Blood Count 3.86 4.2-5.4 M/uL Hemoglobin 10.0 12.0-16.0 g/dL Hematocrit 32.5 37-47 % Mean Corpuscular Volume 84.2 80-100 fL Mean Corpuscular Hemoglobin 25.9 25-34 pg Mean Corpuscular Hemoglobin Concent 30.8 32-36 g/dl Platelet Count 332 130-400 K/uL Mean Platelet Volume 8.9 7.4-10.4 fL Neutrophils (%) (Auto) 89.0 % Lymphocytes (%) (Auto) 5.0 % Monocytes (%) (Auto) 5.4 % Eosinophils (%) (Auto) 0.0 % Basophils (%) (Auto) 0.0 % Neutrophils # (Auto) 7.59 1.4-6.5 K/uL Lymphocytes # (Auto) 0.43 1.2-3.4 K/uL Monocytes # (Auto) 0.46 0.11-0.59 K/uL Eosinophils # (Auto) 0.00 0-0.5 K/uL Basophils # (Auto) 0.00 0-0.2 K/uL RDW Standard Deviation 44.3 36.4-46.3 fL RDW Coefficient of Variation 14.3 11.5-14.5 % Immature Granulocyte % (Auto) 0.6 % Immature Granulocyte # (Auto) 0.05 0.00-0.02 K/uL Sodium Level 144 136-145 mmol/L Potassium Level 4.0 3.5-5.1 mmol/L Chloride Level 109 98-107 mmol/L Carbon Dioxide Level 27 21-32 mmol/L Anion Gap 8.0 3-11 mmol/L Blood Urea Nitrogen 18 7-18 mg/dl Creatinine 0.78 0.60-1.20 mg/dl Est Creatinine Clear Calc Drug Dose 63.3 ml/min Estimated GFR () 86.8 Estimated GFR (Non- 74.9 BUN/Creatinine Ratio 23.2 10-20 Random Glucose 218 70-99 mg/dl Calcium Level 8.2 8.5-10.1 mg/dl Microbiology Results 11/26/16 C.difficile Toxin B Gene (PCR) - Final, Complete No C. difficile toxin B gene detected Diagnostic Radiology CXR 11/23: 1. There is patchy airspace consolidation at the right lung base with a trace right pleural effusion. The appearance is typical for pneumonia. Radiographic follow-up to resolution is recommended. 2. The left lung is grossly clear. 3. Emphysema. Impression Assessment and Plan 76 year old female with end stage emphysema, presents with worsening reapiratory failure and PNA RLL pneumonia Acute on chronic respiratory failure End-stage COPD Diastolic heart failure Non-obstructive CAD (cath in 2005) Plan: Continue Abx, on Levaquin, Zosyn. Vanco stopped as MRSA negative WBC coming down, normalized today Repeat CXR in AM Check urine Legionella Ag Continue nasal cannula, nocturnal BIPAP. Also using BIPAP during the day as needed Continue bronchodilators Maintain on iv steroids for now, Solumedrol 40 mg q 8. Continue Breo Ellipta. Start Incruse Ellipta, when off ipratropium around the clock Continue diuresis Slowly improving. She does not want to go rehab post discharge. DVT prophylaxis:Heparin SC DVT Prophylaxis unfractionated heparin SQ Note Total Time (mins): 55
[2016-11-27] MEDS: SIMVASTATIN 10 MG TAB PO SCH (20:37)
[2016-11-27] MEDS: AMITRIPTYLINE HCL 100 MG TAB PO SCH (20:37)
[2016-11-28] VITALS (10 sets, daily range): BP systolic 113–169; BP diastolic 56–98; PULSE 72–99; TEMP 36.4–36.7; O2SAT 91–100
[2016-11-28] MEDS: METHYLPREDNISOLONE IV 40 MG in SYRINGE 0 ML IV SCH ×2 (01:46→10:49)
[2016-11-28] MEDS: HEPARIN SOD 5000 UNIT/0.5 ML CARP SQ SCH ×3 (05:50→21:59)
[2016-11-28] MEDS: PIPERACILL/TAZOBAC IV 4.5 GM in DEXTROSE 5% 100ML IV SCH ×2 (05:50→14:39)
[2016-11-28 06:20] LABS: BASO % 0.1 %; BASO ABS # 0.01 K/uL (0-0.2); COMPLETE YES; HEMATOCRIT 33.9 % (37-47); IG% 1.2 %; LYMPH % 4.9 %; MEAN CELL VOLUME 84.5 fL (80-100); MEAN CORPUSCULAR HEMOGLOBIN 26.2 pg (25-34); MEAN PLATELET VOLUME 8.8 fL (7.4-10.4); MONO % 6.2 %; NEUT % 87.6 %; PLATELET COUNT 347 K/uL (130-400); RED BLOOD COUNT 4.01 M/uL (4.2-5.4); WHITE BLOOD COUNT 10.21 K/uL (4.8-10.8)
[2016-11-28 06:59] LABS: BUN/CREATININE RATIO 22.3 (10-20); CALCIUM 8.6 mg/dl (8.5-10.1); CREATININE 0.83 mg/dl (0.60-1.20); POTASSIUM 4.8 mmol/L (3.5-5.1)
[2016-11-28] MEDS: CLOPIDOGREL BISULFATE 75 MG TAB PO SCH (07:57)
[2016-11-28] MEDS: ASPIRIN 81 MG ECTAB PO SCH (07:57)
[2016-11-28] MEDS: PANTOprazole SOD 40 MG TAB PO SCH ×2 (07:58→21:58)
[2016-11-28] MEDS: FUROSEMIDE 40 MG TAB PO SCH ×3 (07:58→17:04)
[2016-11-28] MEDS: OXYCODONE HCL 15 MG TABCR (OXYCONTIN) PO SCH ×2 (07:58→21:54)
[2016-11-28] MEDS: TOPIRAMATE 100 MG TAB PO SCH (07:58)
[2016-11-28] MEDS: ALPRAZOLAM 0.5 MG TAB PO PRN ×2 (07:58→21:54)
[2016-11-28] MEDS: FLUTICASONE FUROATE-VILANTEROL 30 PUFFS/INHALER INH INH SCH (07:59)
[2016-11-28] MEDS: DOCUSATE SODIUM 100 MG CAP PO SCH ×2 (07:59→21:55)
[2016-11-28] MEDS: POTASSIUM CHLORIDE 20 MEQ TABCR PO SCH ×3 (07:59→21:57)
[2016-11-28] MEDS: LOSARTAN POTASSIUM 50 MG TAB PO SCH (07:59)
[2016-11-28] MEDS: FLUCONAZOLE 100 MG TAB PO SCH (07:59)
[2016-11-28] MEDS: ALBUT/IPRATROP 3MG/0.5MG NEB 3 ML VIAL INH SCH ×4 (08:04→20:15)
--- NOTE | 2016-11-28 08:26 | DIAGNOSTIC IMAGING REPORT ---
CHEST ONE VIEW PORTABLE HISTORY: Short of breath. Pneumonia. COMPARISON: Chest 11/23/2016. FINDINGS: Near complete resolution of the right lower lobe airspace opacity. Trace right pleural effusion persists. The heart remains borderline enlarged. The left lung is clear. No pneumothorax. IMPRESSION: Near complete resolution of the right lower lobe airspace opacity. A trace right pleural effusion persists. Electronically signed by: Redd Buck M.D. 11/28/2016 8:25 AM Dictated Date/Time: 11/28/2016 8:24 AM
[2016-11-28] MEDS: LEVOFLOXACIN 750 MG TAB PO SCH (10:48)
--- NOTE | 2016-11-28 11:18 | Pulmonology Progress Note ---
Pulmonary Progress Note Date of Service November 28, 2016. 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 All labs and imaging reviewed Assessment & Plan (1) COPD exacerbation Assessment & Plan: improving switch to po prednisone continue bipap if she is having frequent copd exacerbations, might benefit from daliresp (2) Shortness of breath Assessment & Plan: continue pt/ot continue o2 continue bipap prn daytime and at night (3) Acute bronchitis complete 5 days of antibiotics and d/c Data Medications: Current Inpatient Medications Medications (Trade) Dose Ordered Sig/Olimpia Route Start Time Stop Time Status Last Admin Dose Admin Heparin Sodium (Porcine) (Heparin Sq 5000 Unit/0.5ml) 5,000 unit Q8 SQ 11/23/16 14:00 12/23/16 13:59 11/23/16 22:26 5,000 UNIT Acetaminophen (Tylenol Tab) 650 mg Q4H PRN PO 11/23/16 09:45 12/23/16 09:44 11/23/16 20:07 650 MG Ondansetron HCl (Zofran Inj) 4 mg Q6H PRN IV 11/23/16 09:45 12/23/16 09:44 Albuterol/ Ipratropium (Duoneb) 3 ml QIDR INH 11/23/16 12:00 12/23/16 11:59 11/28/16 08:04 3 ML Alprazolam (Xanax Tab) 0.5 mg Q12 PRN PO 11/23/16 10:15 12/23/16 10:14 11/28/16 07:58 0.5 MG Amitriptyline HCl (Elavil Tab) 100 mg HS PO 11/23/16 21:00 12/23/16 20:59 11/27/16 20:37 100 MG Aspirin (Ecotrin Tab) 81 mg DAILY PO 11/24/16 09:00 12/24/16 08:59 11/28/16 07:57 81 MG Baclofen (Lioresal Tab) 10 mg TID PRN PO 11/23/16 10:15 12/23/16 10:14 Clopidogrel Bisulfate (plAVix TAB) 75 mg DAILY PO 11/24/16 09:00 12/24/16 08:59 11/28/16 07:57 75 MG Oxycodone HCl (Oxycontin Tab) 15 mg Q12 PO 11/23/16 21:00 12/07/16 20:59 11/28/16 07:58 15 MG Pantoprazole Sodium (Protonix Tab) 40 mg BID PO 11/23/16 21:00 12/23/16 20:59 11/28/16 07:58 40 MG Potassium Chloride (Klor-Con Tab) 60 meq TID PO 11/23/16 14:00 12/23/16 13:59 11/28/16 07:59 60 MEQ Simvastatin (Zocor Tab) 10 mg QPM PO 11/23/16 21:00 12/23/16 20:59 11/27/16 20:37 10 MG Topiramate (Topamax Tab) 100 mg DAILY PO 11/24/16 09:00 12/24/16 08:59 11/28/16 07:58 100 MG Acetaminophen/ Butalbital/ Caffeine (Fioricet Tab) 1 tab Q4H PRN PO 11/23/16 10:15 12/23/16 10:14 Miscellaneous Information (Order Awaiting Action) 1 ea QS N/A 11/23/16 16:00 12/23/16 15:59 Piperacillin Sod/ Tazobactam Sod (Consult) 1 ea UD PRN N/A 11/23/16 11:45 12/23/16 11:44 Heparin Sodium (Porcine) 5 ml 5 ml PRN PRN FLUSH 11/23/16 13:45 12/23/16 13:44 11/25/16 05:21 15 ML Piperacillin Sod/ Tazobactam Sod/ Dextrose (Zosyn Iv/D5 100ml) 120 ml @ 30 mls/hr Q8H IV 11/23/16 22:00 11/30/16 21:59 11/28/16 05:50 30 MLS/HR Fluticasone/ Vilanterol (Breo Ellipta 100-25 Mcg/Inh) 1 puffs DAILY INH 11/24/16 09:00 12/24/16 08:59 11/28/16 07:59 1 PUFFS Furosemide (Lasix Tab) 40 mg TIDM PO 11/25/16 08:00 12/25/16 07:59 11/28/16 07:58 40 MG Docusate Sodium (coLACE CAP) 100 mg BID PO 11/24/16 21:00 12/24/16 20:59 11/26/16 20:48 100 MG Fluconazole (Diflucan Tab) 100 mg QAM PO 11/26/16 12:30 11/29/16 12:29 11/28/16 07:59 100 MG Levofloxacin (Levaquin Tab) 750 mg DAILY@11 PO 11/27/16 11:00 12/01/16 10:59 11/28/16 10:48 750 MG Losartan Potassium 100 mg 100 mg QAM PO 11/26/16 12:30 12/26/16 12:29 11/28/16 07:59 100 MG Methylprednisolone Sodium Succinate/ Syringe (Solu-Medrol IV/ Syringe) 0.64 ml @ 1.5 mls/min Q8H IV 11/27/16 10:00 12/27/16 09:59 11/28/16 10:49 1.5 MLS/MIN I & O: 24-Hour Column 11/28/16 08:00 Intake Total 1265 ml Output Total 2000 ml Balance -735 ml Vital Signs: Date Time Temp Pulse Resp B/P Pulse Ox O2 Delivery O2 Flow Rate FiO2 11/28/16 08:04 87 14 98 Nasal Cannula 4.0 11/28/16 07:43 Nasal Cannula 4.0 11/28/16 07:19 36.5 82 18 160/98 100 Nasal Cannula 4.0 11/28/16 04:01 Nasal Cannula 4.0 CPAP 11/28/16 04:00 36.7 72 20 128/76 99 CPAP 11/28/16 00:03 Nasal Cannula 4.0 CPAP 11/27/16 23:38 36.8 85 20 108/61 98 CPAP 11/27/16 20:09 Nasal Cannula 4.0 CPAP 11/27/16 20:05 36.4 90 20 131/74 100 CPAP 11/27/16 19:42 91 20 98 BiPAP/CPAP 4.0 11/27/16 17:20 99 149/84 11/27/16 16:00 BiPAP 4.0 11/27/16 15:19 93 20 98 Nasal Cannula 4.0 11/27/16 15:15 36.6 88 18 134/73 97 BiPAP 11/27/16 14:09 86 98 11/27/16 12:31 37.0 99 20 137/67 100 11/27/16 12:07 BiPAP 4.0 Laboratory Results: Last 24 Hours Test 11/28/16 01:45 11/28/16 05:45 White Blood Count 10.21 K/uL Red Blood Count 4.01 M/uL Hemoglobin 10.5 g/dL Hematocrit 33.9 % Mean Corpuscular Volume 84.5 fL Mean Corpuscular Hemoglobin 26.2 pg Mean Corpuscular Hemoglobin Concent 31.0 g/dl Platelet Count 347 K/uL Mean Platelet Volume 8.8 fL Neutrophils (%) (Auto) 87.6 % Lymphocytes (%) (Auto) 4.9 % Monocytes (%) (Auto) 6.2 % Eosinophils (%) (Auto) 0.0 % Basophils (%) (Auto) 0.1 % Neutrophils # (Auto) 8.95 K/uL Lymphocytes # (Auto) 0.50 K/uL Monocytes # (Auto) 0.63 K/uL Eosinophils # (Auto) 0.00 K/uL Basophils # (Auto) 0.01 K/uL RDW Standard Deviation 43.9 fL RDW Coefficient of Variation 14.0 % Immature Granulocyte % (Auto) 1.2 % Immature Granulocyte # (Auto) 0.12 K/uL Sodium Level 144 mmol/L Potassium Level 4.8 mmol/L Chloride Level 108 mmol/L Carbon Dioxide Level 31 mmol/L Anion Gap 5.0 mmol/L Blood Urea Nitrogen 19 mg/dl Creatinine 0.83 mg/dl Est Creatinine Clear Calc Drug Dose 59.4 ml/min Estimated GFR () 80.5 Estimated GFR (Non- 69.5 BUN/Creatinine Ratio 22.3 Random Glucose 173 mg/dl Calcium Level 8.6 mg/dl
[2016-11-28] MEDS: ACETAMINOPHEN 325 MG TAB PO PRN ×2 (11:53→21:55)
--- NOTE | 2016-11-28 18:54 | Progress Note ---
Subjective Date of Service: November 28, 2016. Subjective Pt evaluation today including: conversation w/ patient, physical exam, chart review, lab review, review of inpatient medication list feeling better breathing better no f/c/s got progressively sicker after discharge last admit Problem List Medical Problems: (1) Back pain Status: Acute (2) Dehydration Status: Acute (3) Left sided chest pain Status: Acute (4) Neck pain Status: Acute (5) PNA (pneumonia) Status: Acute (6) Right-sided chest pain Status: Acute (7) Right-sided chest pain Status: Acute (8) Sepsis Status: Acute (9) SOB (shortness of breath) Status: Acute (10) UTI (urinary tract infection) Status: Acute Review of Systems ros otherwise negative except for as above Objective Vital Signs Date Time Temp Pulse Resp B/P Pulse Ox O2 Delivery O2 Flow Rate FiO2 11/28/16 15:15 87 14 98 Nasal Cannula 4.0 11/28/16 14:50 36.4 82 20 113/56 91 Nasal Cannula 4.0 11/28/16 12:00 Nasal Cannula 4.0 11/28/16 11:39 36.6 90 20 169/76 93 BiPAP 4.0 11/28/16 11:35 87 14 98 Nasal Cannula 4.0 11/28/16 08:04 87 14 98 Nasal Cannula 4.0 11/28/16 07:43 Nasal Cannula 4.0 11/28/16 07:19 36.5 82 18 160/98 100 Nasal Cannula 4.0 11/28/16 04:01 Nasal Cannula 4.0 CPAP 11/28/16 04:00 36.7 72 20 128/76 99 CPAP 11/28/16 00:03 Nasal Cannula 4.0 CPAP 11/27/16 23:38 36.8 85 20 108/61 98 CPAP 11/27/16 20:09 Nasal Cannula 4.0 CPAP 11/27/16 20:05 36.4 90 20 131/74 100 CPAP 11/27/16 19:42 91 20 98 BiPAP/CPAP 4.0 Physical Exam General Appearance: no apparent distress Eyes: EOMI ENT: hearing grossly normal Neck: trachea midline Respiratory/Chest: no respiratory distress, no accessory muscle use Neurologic/Psychiatric: emergency room rn II-XII nml as tested, alert, normal mood/affect Skin: normal color, warm/dry Laboratory Results Last 24 Hours Test 11/28/16 01:45 11/28/16 05:45 White Blood Count 10.21 K/uL Red Blood Count 4.01 M/uL Hemoglobin 10.5 g/dL Hematocrit 33.9 % Mean Corpuscular Volume 84.5 fL Mean Corpuscular Hemoglobin 26.2 pg Mean Corpuscular Hemoglobin Concent 31.0 g/dl Platelet Count 347 K/uL Mean Platelet Volume 8.8 fL Neutrophils (%) (Auto) 87.6 % Lymphocytes (%) (Auto) 4.9 % Monocytes (%) (Auto) 6.2 % Eosinophils (%) (Auto) 0.0 % Basophils (%) (Auto) 0.1 % Neutrophils # (Auto) 8.95 K/uL Lymphocytes # (Auto) 0.50 K/uL Monocytes # (Auto) 0.63 K/uL Eosinophils # (Auto) 0.00 K/uL Basophils # (Auto) 0.01 K/uL RDW Standard Deviation 43.9 fL RDW Coefficient of Variation 14.0 % Immature Granulocyte % (Auto) 1.2 % Immature Granulocyte # (Auto) 0.12 K/uL Sodium Level 144 mmol/L Potassium Level 4.8 mmol/L Chloride Level 108 mmol/L Carbon Dioxide Level 31 mmol/L Anion Gap 5.0 mmol/L Blood Urea Nitrogen 19 mg/dl Creatinine 0.83 mg/dl Est Creatinine Clear Calc Drug Dose 59.4 ml/min Estimated GFR () 80.5 Estimated GFR (Non- 69.5 BUN/Creatinine Ratio 22.3 Random Glucose 173 mg/dl Calcium Level 8.6 mg/dl Assessment and Plan 1. Sepsis secondary to HCAP - improving - cont levaquin PO, stop zosyn - blood cultures no growth 2. Acute on chronic COPD Exacerbation liked secondary to HCAP - not as short of breath - Duonebs, Incruse, Breo ,and BiPAP when necessary and daily at bedtime - solumedrol at 40mg Q8h 3. Chronic diastolic heart failure now with acute exacerbation - improving - likely secondary to hydration received during sepsis treatment. - weight almost back down to admit weight - Continue lasix 40mg TID PO. - appearing stable 4. Coronary artery disease-stable, nonobstructive CAD on cath in 2005, Dobutamine stress normal 2014 - Continued aspirin, plavix, simvastatin - no symptoms 5. hypertension - continue to monitor - continue losartan. possibly resume cardizem in near future 6. Weakness - has been refusing PT/OT, won't go to rehab 7. Pt is FULL CODE 8. DVT prophylaxis with heparin 9. Hx of C.Diff - has some diarrhea - C. Diff negative
[2016-11-28] MEDS: SIMVASTATIN 10 MG TAB PO SCH (21:56)
[2016-11-28] MEDS: AMITRIPTYLINE HCL 100 MG TAB PO SCH (21:58)
[2016-11-29] VITALS (11 sets, daily range): BP systolic 112–147; BP diastolic 56–78; PULSE 75–98; TEMP 35.7–37.1; O2SAT 95–100
[2016-11-29] MEDS: HEPARIN SOD 5000 UNIT/0.5 ML CARP SQ SCH ×3 (05:12→21:14)
[2016-11-29] MEDS: ALBUT/IPRATROP 3MG/0.5MG NEB 3 ML VIAL INH SCH ×4 (06:27→19:10)
[2016-11-29 07:10] LABS: BASO % 0.1 %; BASO ABS # 0.01 K/uL (0-0.2); COMPLETE YES; EOS % 0.1 %; HEMATOCRIT 36.2 % (37-47); IG% 2.3 %; LYMPH % 9.6 %; LYMPH ABS # 1.04 K/uL (1.2-3.4); MEAN CELL VOLUME 85.4 fL (80-100); MEAN CORPUSCULAR HEMOGLOBIN 26.9 pg (25-34); MEAN CORPUSCULAR HGB CONC 31.5 g/dl (32-36); MEAN PLATELET VOLUME 8.8 fL (7.4-10.4); MONO % 8.9 %; PLATELET COUNT 359 K/uL (130-400); RED BLOOD COUNT 4.24 M/uL (4.2-5.4); WHITE BLOOD COUNT 10.81 K/uL (4.8-10.8)
[2016-11-29] MEDS: FUROSEMIDE 40 MG TAB PO SCH ×3 (07:41→16:19)
[2016-11-29] MEDS: DOCUSATE SODIUM 100 MG CAP PO SCH ×2 (07:42→21:16)
[2016-11-29] MEDS: FLUTICASONE FUROATE-VILANTEROL 30 PUFFS/INHALER INH INH SCH (07:42)
[2016-11-29] MEDS: CLOPIDOGREL BISULFATE 75 MG TAB PO SCH (07:43)
[2016-11-29] MEDS: TOPIRAMATE 100 MG TAB PO SCH (07:43)
[2016-11-29] MEDS: LOSARTAN POTASSIUM 50 MG TAB PO SCH (07:43)
[2016-11-29] MEDS: FLUCONAZOLE 100 MG TAB PO SCH (07:43)
[2016-11-29] MEDS: ASPIRIN 81 MG ECTAB PO SCH (07:43)
[2016-11-29] MEDS: PANTOprazole SOD 40 MG TAB PO SCH ×2 (07:44→21:16)
[2016-11-29] MEDS: POTASSIUM CHLORIDE 20 MEQ TABCR PO SCH ×3 (07:44→21:16)
[2016-11-29] MEDS: LEVOFLOXACIN 750 MG TAB PO SCH (07:44)
[2016-11-29 07:47] LABS: BUN/CREATININE RATIO 32.6 (10-20); CALCIUM 8.8 mg/dl (8.5-10.1); CREATININE 0.8 mg/dl (0.60-1.20); POTASSIUM 4.3 mmol/L (3.5-5.1)
[2016-11-29] MEDS: OXYCODONE HCL 15 MG TABCR (OXYCONTIN) PO SCH ×2 (07:48→21:16)
[2016-11-29] MEDS: ACETAMINOPHEN 325 MG TAB PO PRN ×2 (07:54→21:20)
[2016-11-29] MEDS: ALPRAZOLAM 0.5 MG TAB PO PRN ×2 (07:55→21:20)
--- NOTE | 2016-11-29 11:51 | Pulmonology Progress Note ---
Pulmonary Progress Note Date of Service November 29, 2016. 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 All labs and imaging reviewed Assessment & Plan (1) COPD exacerbation Assessment & Plan: improving switch to po prednisone continue bipap if she is having frequent copd exacerbations, might benefit from daliresp But patient unable to afford daliresp can try low dose alternate day zithromax as outpatient d/w her about pulmonary rehab as outpatient improving switch to po prednisone continue bipap if she is having frequent copd exacerbations, might benefit from daliresp (2) Shortness of breath Assessment & Plan: continue pt/ot continue o2 continue bipap prn daytime and at night (3) Acute bronchitis complete 5 days of antibiotics and d/c Data Medications: Current Inpatient Medications Medications (Trade) Dose Ordered Sig/Olimpia Route Start Time Stop Time Status Last Admin Dose Admin Heparin Sodium (Porcine) (Heparin Sq 5000 Unit/0.5ml) 5,000 unit Q8 SQ 11/23/16 14:00 12/23/16 13:59 11/23/16 22:26 5,000 UNIT Acetaminophen (Tylenol Tab) 650 mg Q4H PRN PO 11/23/16 09:45 12/23/16 09:44 11/29/16 07:54 650 MG Ondansetron HCl (Zofran Inj) 4 mg Q6H PRN IV 11/23/16 09:45 12/23/16 09:44 Albuterol/ Ipratropium (Duoneb) 3 ml QIDR INH 11/23/16 12:00 12/23/16 11:59 11/29/16 06:27 3 ML Alprazolam (Xanax Tab) 0.5 mg Q12 PRN PO 11/23/16 10:15 12/23/16 10:14 11/29/16 07:55 0.5 MG Amitriptyline HCl (Elavil Tab) 100 mg HS PO 11/23/16 21:00 12/23/16 20:59 11/28/16 21:58 100 MG Aspirin (Ecotrin Tab) 81 mg DAILY PO 11/24/16 09:00 12/24/16 08:59 11/29/16 07:43 81 MG Baclofen (Lioresal Tab) 10 mg TID PRN PO 11/23/16 10:15 12/23/16 10:14 Clopidogrel Bisulfate (plAVix TAB) 75 mg DAILY PO 11/24/16 09:00 12/24/16 08:59 11/29/16 07:43 75 MG Oxycodone HCl (Oxycontin Tab) 15 mg Q12 PO 11/23/16 21:00 12/07/16 20:59 11/29/16 07:48 15 MG Pantoprazole Sodium (Protonix Tab) 40 mg BID PO 11/23/16 21:00 12/23/16 20:59 11/29/16 07:44 40 MG Potassium Chloride (Klor-Con Tab) 60 meq TID PO 11/23/16 14:00 12/23/16 13:59 11/29/16 07:44 60 MEQ Simvastatin (Zocor Tab) 10 mg QPM PO 11/23/16 21:00 12/23/16 20:59 11/28/16 21:56 10 MG Topiramate (Topamax Tab) 100 mg DAILY PO 11/24/16 09:00 12/24/16 08:59 11/29/16 07:43 100 MG Acetaminophen/ Butalbital/ Caffeine (Fioricet Tab) 1 tab Q4H PRN PO 11/23/16 10:15 12/23/16 10:14 Miscellaneous Information (Order Awaiting Action) 1 ea QS N/A 11/23/16 16:00 12/23/16 15:59 Heparin Sodium (Porcine) (Heparin 10 Unit/ ml 5 ml Flush) 5 ml PRN PRN FLUSH 11/23/16 13:45 12/23/16 13:44 11/25/16 05:21 15 ML Fluticasone/ Vilanterol (Breo Ellipta 100-25 Mcg/Inh) 1 puffs DAILY INH 11/24/16 09:00 12/24/16 08:59 11/29/16 07:42 1 PUFFS Furosemide (Lasix Tab) 40 mg TIDM PO 11/25/16 08:00 12/25/16 07:59 11/29/16 07:41 40 MG Docusate Sodium (coLACE CAP) 100 mg BID PO 11/24/16 21:00 12/24/16 20:59 11/29/16 07:42 100 MG Fluconazole (Diflucan Tab) 100 mg QAM PO 11/26/16 12:30 11/29/16 12:29 11/29/16 07:43 100 MG Levofloxacin (Levaquin Tab) 750 mg DAILY@11 PO 11/27/16 11:00 12/01/16 10:59 11/29/16 07:44 750 MG Losartan Potassium (coZAAR TAB) 100 mg QAM PO 11/26/16 12:30 12/26/16 12:29 11/29/16 07:43 100 MG Prednisone (PredniSONE TAB) 20 mg BID17 PO 11/28/16 17:00 12/28/16 16:59 11/29/16 07:43 20 MG I & O: 24-Hour Column 11/29/16 08:00 Intake Total 930 ml Output Total 900 ml Balance 30 ml Vital Signs: Date Time Temp Pulse Resp B/P Pulse Ox O2 Delivery O2 Flow Rate FiO2 11/29/16 11:34 36.8 97 20 146/56 100 4.0 11/29/16 08:00 Nasal Cannula 4.0 11/29/16 07:51 36.8 75 22 112/78 99 4.0 11/29/16 06:27 88 20 97 Nasal Cannula 4.0 11/29/16 04:10 36.5 89 18 140/77 95 BiPAP 4.0 11/29/16 04:00 CPAP 4.0 11/29/16 00:00 35.7 84 20 134/78 96 CPAP 11/29/16 00:00 CPAP 4.0 11/28/16 20:15 87 22 98 BiPAP/CPAP 4.0 11/28/16 20:00 Nasal Cannula 4.0 11/28/16 19:23 36.6 99 20 147/69 93 Nasal Cannula 4.0 11/28/16 16:00 98 Nasal Cannula 4.0 11/28/16 15:15 87 14 98 Nasal Cannula 4.0 11/28/16 14:50 36.4 82 20 113/56 91 Nasal Cannula 4.0 11/28/16 12:00 Nasal Cannula 4.0 Laboratory Results: Last 24 Hours Test 5/30/17 06:37 White Blood Count 10.81 K/uL Red Blood Count 4.24 M/uL Hemoglobin 11.4 g/dL Hematocrit 36.2 % Mean Corpuscular Volume 85.4 fL Mean Corpuscular Hemoglobin 26.9 pg Mean Corpuscular Hemoglobin Concent 31.5 g/dl Platelet Count 359 K/uL Mean Platelet Volume 8.8 fL Neutrophils (%) (Auto) 79.0 % Lymphocytes (%) (Auto) 9.6 % Monocytes (%) (Auto) 8.9 % Eosinophils (%) (Auto) 0.1 % Basophils (%) (Auto) 0.1 % Neutrophils # (Auto) 8.54 K/uL Lymphocytes # (Auto) 1.04 K/uL Monocytes # (Auto) 0.96 K/uL Eosinophils # (Auto) 0.01 K/uL Basophils # (Auto) 0.01 K/uL RDW Standard Deviation 44.2 fL RDW Coefficient of Variation 14.2 % Immature Granulocyte % (Auto) 2.3 % Immature Granulocyte # (Auto) 0.25 K/uL Sodium Level 144 mmol/L Potassium Level 4.3 mmol/L Chloride Level 106 mmol/L Carbon Dioxide Level 33 mmol/L Anion Gap 5.0 mmol/L Blood Urea Nitrogen 26 mg/dl Creatinine 0.80 mg/dl Est Creatinine Clear Calc Drug Dose 61.5 ml/min Estimated GFR () 84.2 Estimated GFR (Non- 72.6 BUN/Creatinine Ratio 32.6 Random Glucose 120 mg/dl Calcium Level 8.8 mg/dl
--- NOTE | 2016-11-29 15:57 | Progress Note ---
Subjective Date of Service: November 29, 2016. Subjective Pt evaluation today including: conversation w/ patient, physical exam, chart review, lab review, review of inpatient medication list feeling about the same breathing no better no worse no f/c/s gettign to and from the bathroom without much dyspnea pulmonary input appreciated, pt notes she would like input from dr hebert or sana neves pac. reached out to sana worried about going home Problem List Medical Problems: (1) Back pain Status: Acute (2) Dehydration Status: Acute (3) Left sided chest pain Status: Acute (4) Neck pain Status: Acute (5) PNA (pneumonia) Status: Acute (6) Right-sided chest pain Status: Acute (7) Right-sided chest pain Status: Acute (8) Sepsis Status: Acute (9) SOB (shortness of breath) Status: Acute (10) UTI (urinary tract infection) Status: Acute Review of Systems ros otherwise negative except for as above Objective Vital Signs Date Time Temp Pulse Resp B/P Pulse Ox O2 Delivery O2 Flow Rate FiO2 11/29/16 15:34 36.3 96 24 125/69 98 Nasal Cannula 4.0 11/29/16 15:15 96 20 97 Nasal Cannula 4.0 11/29/16 12:45 88 20 97 Nasal Cannula 4.0 11/29/16 12:00 Nasal Cannula 4.0 11/29/16 11:34 36.8 97 20 146/56 100 4.0 11/29/16 08:00 Nasal Cannula 4.0 11/29/16 07:51 36.8 75 22 112/78 99 4.0 11/29/16 06:27 88 20 97 Nasal Cannula 4.0 11/29/16 04:10 36.5 89 18 140/77 95 BiPAP 4.0 11/29/16 04:00 CPAP 4.0 11/29/16 00:00 35.7 84 20 134/78 96 CPAP 11/29/16 00:00 CPAP 4.0 11/28/16 20:15 87 22 98 BiPAP/CPAP 4.0 11/28/16 20:00 Nasal Cannula 4.0 11/28/16 19:23 36.6 99 20 147/69 93 Nasal Cannula 4.0 11/28/16 16:00 98 Nasal Cannula 4.0 Physical Exam General Appearance: no apparent distress Eyes: EOMI ENT: hearing grossly normal Neck: trachea midline Respiratory/Chest: no respiratory distress, no accessory muscle use Extremities: normal range of motion Neurologic/Psychiatric: sole buffer II-XII nml as tested, alert, normal mood/affect Skin: normal color, warm/dry Laboratory Results Last 24 Hours Test 11/29/16 06:37 White Blood Count 10.81 K/uL Red Blood Count 4.24 M/uL Hemoglobin 11.4 g/dL Hematocrit 36.2 % Mean Corpuscular Volume 85.4 fL Mean Corpuscular Hemoglobin 26.9 pg Mean Corpuscular Hemoglobin Concent 31.5 g/dl Platelet Count 359 K/uL Mean Platelet Volume 8.8 fL Neutrophils (%) (Auto) 79.0 % Lymphocytes (%) (Auto) 9.6 % Monocytes (%) (Auto) 8.9 % Eosinophils (%) (Auto) 0.1 % Basophils (%) (Auto) 0.1 % Neutrophils # (Auto) 8.54 K/uL Lymphocytes # (Auto) 1.04 K/uL Monocytes # (Auto) 0.96 K/uL Eosinophils # (Auto) 0.01 K/uL Basophils # (Auto) 0.01 K/uL RDW Standard Deviation 44.2 fL RDW Coefficient of Variation 14.2 % Immature Granulocyte % (Auto) 2.3 % Immature Granulocyte # (Auto) 0.25 K/uL Sodium Level 144 mmol/L Potassium Level 4.3 mmol/L Chloride Level 106 mmol/L Carbon Dioxide Level 33 mmol/L Anion Gap 5.0 mmol/L Blood Urea Nitrogen 26 mg/dl Creatinine 0.80 mg/dl Est Creatinine Clear Calc Drug Dose 61.5 ml/min Estimated GFR () 84.2 Estimated GFR (Non- 72.6 BUN/Creatinine Ratio 32.6 Random Glucose 120 mg/dl Calcium Level 8.8 mg/dl Assessment and Plan 1. Sepsis secondary to HCAP - improving - cont levaquin PO (was also originally on zosyn) - blood cultures no growth 2. Acute on chronic COPD Exacerbation liked secondary to HCAP - not as short of breath - Duonebs, Incruse, Breo ,and BiPAP when necessary and daily at bedtime - tapering steroids - appreciate pulmonary thoughts on daliresp or zithromax QOD 3. Chronic diastolic heart failure now with acute exacerbation - improving - likely secondary to hydration received during sepsis treatment. - appearing compensated - Continue lasix 40mg TID PO. - follow periodic BMP 4. Coronary artery disease-stable, nonobstructive CAD on cath in 2005, Dobutamine stress normal 2014 - Continued aspirin, plavix, simvastatin - no symptoms 5. hypertension - continue to monitor - continue losartan. resume cardizem 6. Weakness - has been refusing PT/OT, won't go to rehab, encouraged activity to increase 7. Pt is FULL CODE 8. DVT prophylaxis with heparin 9. Hx of C.Diff - has some diarrhea - C. Diff negative dispo difficult - worried about going home, refuses any placement options, but here with what appears to be nosocomial infection - making risk for remaining inpt even higher
[2016-11-29] MEDS: SIMVASTATIN 10 MG TAB PO SCH (21:16)
[2016-11-29] MEDS: AMITRIPTYLINE HCL 100 MG TAB PO SCH (21:17)
[2016-11-30 04:07] VITALS: BP 125/69; PULSE 76; TEMP 36.5; O2SAT 95
[2016-11-30] MEDS: HEPARIN SOD 5000 UNIT/0.5 ML CARP SQ SCH ×2 (05:46→13:24)
[2016-11-30 06:32] LABS: BASO % 0.2 %; BASO ABS # 0.02 K/uL (0-0.2); COMPLETE YES; EOS % 0.5 %; HEMATOCRIT 37.1 % (37-47); IG% 3.2 %; LYMPH % 12.2 %; LYMPH ABS # 1.15 K/uL (1.2-3.4); MEAN CELL VOLUME 84.9 fL (80-100); MEAN CORPUSCULAR HEMOGLOBIN 26.3 pg (25-34); MONO % 8.8 %; NEUT % 75.1 %; PLATELET COUNT 364 K/uL (130-400); RED BLOOD COUNT 4.37 M/uL (4.2-5.4); WHITE BLOOD COUNT 9.42 K/uL (4.8-10.8)
[2016-11-30 07:03] LABS: CALCIUM 8.9 mg/dl (8.5-10.1); CREATININE 0.76 mg/dl (0.60-1.20); POTASSIUM 4.4 mmol/L (3.5-5.1)
[2016-11-30 07:19] VITALS: BP 145/74; PULSE 72; TEMP 36.5; O2SAT 100
[2016-11-30 07:25] VITALS: PULSE 80; O2SAT 98
[2016-11-30] MEDS: ALBUT/IPRATROP 3MG/0.5MG NEB 3 ML VIAL INH SCH ×2 (07:55→11:12)
[2016-11-30] MEDS: ALPRAZOLAM 0.5 MG TAB PO PRN (08:23)
[2016-11-30] MEDS: PANTOprazole SOD 40 MG TAB PO SCH (08:24)
[2016-11-30] MEDS: CLOPIDOGREL BISULFATE 75 MG TAB PO SCH (08:24)
[2016-11-30] MEDS: DOCUSATE SODIUM 100 MG CAP PO SCH (08:24)
[2016-11-30] MEDS: TOPIRAMATE 100 MG TAB PO SCH (08:24)
[2016-11-30] MEDS: ACETAMINOPHEN 325 MG TAB PO PRN (08:24)
[2016-11-30] MEDS: POTASSIUM CHLORIDE 20 MEQ TABCR PO SCH ×2 (08:25→13:37)
[2016-11-30] MEDS: ASPIRIN 81 MG ECTAB PO SCH (08:25)
[2016-11-30] MEDS: LOSARTAN POTASSIUM 50 MG TAB PO SCH (08:26)
[2016-11-30] MEDS: FLUTICASONE FUROATE-VILANTEROL 30 PUFFS/INHALER INH INH SCH (08:26)
[2016-11-30] MEDS: FUROSEMIDE 40 MG TAB PO SCH ×2 (08:26→12:39)
[2016-11-30] MEDS: OXYCODONE HCL 15 MG TABCR (OXYCONTIN) PO SCH (08:31)
[2016-11-30] MEDS ORDERED: DILTIAZEM HCL 120 MG EXT REL CAP PO SCH (09:00)
[2016-11-30] MEDS ORDERED: ROFL1TAB5 PO (09:46)
[2016-11-30] MEDS ORDERED: FLUC150T PO (09:46)
[2016-11-30] MEDS ORDERED: AZIT250T PO (09:46)
--- NOTE | 2016-11-30 09:50 | Discharge Instructions ---
Discharge Instructions Date of Service November 30, 2016. Admission Reason for Admission: Hcap,Sob Discharge Discharge Diagnosis / Problem: healthcare associated pneumonia Discharge Goals Goal(s): Increase independence, Improve disease control, Diagnostic testing, Therapeutic intervention Activity Recommendations Activity Limitations: resume your previous activity . Instructions / Follow-Up Instructions / Follow-Up healthcare associated pneumonia with severe COPD -fortunately this responded more quickly than hospital acquired infections usually do -you've been treated with 7 days of levaquin, as quick as this responded, this is an adequate course of treatment -- further antibiotics would likely cause more harm than good -we're going to give a trial to suppressive therapy with azithromycin 250mg every other day indefinitely - you won't really notice improvement right away, it will be more with hindsight that if it's working you'll see less exacerbations, less hospitalizations, etc. we sent an Rx for diflucan if it gives you a yeast infection, hopefully this will not be a recurring thing (if it is, it would make it necessary to revisit the +/- of continuing the zithromax) -because insurance coverage/bureaucracy is an "ever-changing game" i sent a prescription for the daliresp to the pharmacy on the off chance it's now covered. if you get there and it's $1000 again, obviously we don't expect you to get it filled -- then continue to work with Gil[facility] and Dr Patel on the other ways to get it -continue your incruse and breo as scheduled, as well as the duonebs/ albuterol as you were before -practice good handwashing / almost obsessive handwashing - to keep you safe from picking up new viruses or bacteria -while there's only limited evidence of benefit, because this pneumonia had the appearance of a hospital acquired infection, I'd have you get bacitracin ointment and use a q-tip to swab the inside of your nose with it twice a day for 5 days (this has been studied with limited efficacy for eradicating MRSA from the nose, but also the potential for harm is really low, so it's worth doing) -we'll have you referred to pulmonary rehab; in addition to that, use your flutter valve as often as you can (shoot for 5 times a day minimum) and move around the house as much as you are able -we'll run a tapering course of prednisone over the next 9 days - 30mg for 3 days then 20mg for 3 days then 10mg for three days Current Hospital Diet Patient's current hospital diet: AHA Diet (Heart Healthy) Discharge Diet Recommended Diet: AHA Diet (Heart Healthy) Pending Studies Studies pending at discharge: no Laboratory Results Hemoglobin A1c Test 11/12/16 05:34 Range/Units Estimated Average Glucose 143 mg/dl Hemoglobin A1c 6.6 H 4.5-5.6 % Medical Emergencies . Who to Call and When: Medical Emergencies: If at any time you feel your situation is an emergency, please call 911 immediately. . Non-Emergent Contact Non-Emergency issues call your: Primary Care Provider, Director Of Recreation Therapy . . "Provider Documentation" section prepared by Sam Shelton. . VTE Core Measure Inpt VTE Proph given/why not?: Unfractionated heparin SQ
[2016-11-30] MEDS ORDERED: PRED10TA PO (09:51)
[2016-11-30 10:25] VITALS: BP 145/74; PULSE 80; TEMP 36.5; O2SAT 98
[2016-11-30] MEDS: LEVOFLOXACIN 750 MG TAB PO SCH (10:38)
--- NOTE | 2016-11-30 11:07 | Pulmonology Progress Note ---
Pulmonary Progress Note Date of Service November 30, 2016. 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: AAO x4 no focal deficit All labs and imaging reviewed Assessment & Plan (1) COPD exacerbation Assessment & Plan: improving continue taper off prednisone d/c in 2 days continue bipap if she is having frequent copd exacerbations, might benefit from daliresp But patient unable to afford daliresp can try low dose alternate day zithromax as outpatient d/w her about pulmonary rehab as outpatient spiriva or tudorza along with symbicort at the time of discharge f/u with pulmonary as outpatient will sign off at this time (2) Shortness of breath Assessment & Plan: continue pt/ot continue o2 continue bipap prn daytime and at night (3) Acute bronchitis complete 5 days of antibiotics and d/c Data Medications: Current Inpatient Medications Medications (Trade) Dose Ordered Sig/Olimpia Route Start Time Stop Time Status Last Admin Dose Admin Heparin Sodium (Porcine) (Heparin Sq 5000 Unit/0.5ml) 5,000 unit Q8 SQ 11/23/16 14:00 12/23/16 13:59 11/23/16 22:26 5,000 UNIT Acetaminophen (Tylenol Tab) 650 mg Q4H PRN PO 11/23/16 09:45 12/23/16 09:44 11/30/16 08:24 650 MG Ondansetron HCl (Zofran Inj) 4 mg Q6H PRN IV 11/23/16 09:45 12/23/16 09:44 Albuterol/ Ipratropium (Duoneb) 3 ml QIDR INH 11/23/16 12:00 12/23/16 11:59 11/30/16 07:55 3 ML Alprazolam (Xanax Tab) 0.5 mg Q12 PRN PO 11/23/16 10:15 12/23/16 10:14 11/30/16 08:23 0.5 MG Amitriptyline HCl (Elavil Tab) 100 mg HS PO 11/23/16 21:00 12/23/16 20:59 11/29/16 21:17 100 MG Aspirin (Ecotrin Tab) 81 mg DAILY PO 11/24/16 09:00 12/24/16 08:59 11/30/16 08:25 81 MG Baclofen (Lioresal Tab) 10 mg TID PRN PO 11/23/16 10:15 12/23/16 10:14 Clopidogrel Bisulfate (plAVix TAB) 75 mg DAILY PO 11/24/16 09:00 12/24/16 08:59 11/30/16 08:24 75 MG Oxycodone HCl (Oxycontin Tab) 15 mg Q12 PO 11/23/16 21:00 12/07/16 20:59 11/30/16 08:31 15 MG Pantoprazole Sodium (Protonix Tab) 40 mg BID PO 11/23/16 21:00 12/23/16 20:59 11/30/16 08:24 40 MG Potassium Chloride (Klor-Con Tab) 60 meq TID PO 11/23/16 14:00 12/23/16 13:59 11/30/16 08:25 60 MEQ Simvastatin (Zocor Tab) 10 mg QPM PO 11/23/16 21:00 12/23/16 20:59 11/29/16 21:16 10 MG Topiramate (Topamax Tab) 100 mg DAILY PO 11/24/16 09:00 12/24/16 08:59 11/30/16 08:24 100 MG Acetaminophen/ Butalbital/ Caffeine (Fioricet Tab) 1 tab Q4H PRN PO 11/23/16 10:15 12/23/16 10:14 Miscellaneous Information (Order Awaiting Action) 1 ea QS N/A 11/23/16 16:00 12/23/16 15:59 Heparin Sodium (Porcine) (Heparin 10 Unit/ ml 5 ml Flush) 5 ml PRN PRN FLUSH 11/23/16 13:45 12/23/16 13:44 11/25/16 05:21 15 ML Fluticasone/ Vilanterol (Breo Ellipta 100-25 Mcg/Inh) 1 puffs DAILY INH 11/24/16 09:00 12/24/16 08:59 11/30/16 08:26 1 PUFFS Furosemide (Lasix Tab) 40 mg TIDM PO 11/25/16 08:00 12/25/16 07:59 11/30/16 08:26 40 MG Docusate Sodium (coLACE CAP) 100 mg BID PO 11/24/16 21:00 12/24/16 20:59 11/30/16 08:24 100 MG Levofloxacin (Levaquin Tab) 750 mg DAILY@11 PO 11/27/16 11:00 12/01/16 10:59 11/30/16 10:38 750 MG Losartan Potassium (coZAAR TAB) 100 mg QAM PO 11/26/16 12:30 12/26/16 12:29 11/30/16 08:26 100 MG Prednisone (PredniSONE TAB) 15 mg BID17 PO 11/29/16 17:00 12/29/16 16:59 11/30/16 08:26 15 MG Diltiazem HCl (TIAzac CAP) 120 mg DAILY PO 11/30/16 09:00 12/30/16 08:59 11/30/16 08:27 120 MG I & O: 24-Hour Column 11/30/16 08:00 Intake Total 620 ml Balance 620 ml Vital Signs: Date Time Temp Pulse Resp B/P Pulse Ox O2 Delivery O2 Flow Rate FiO2 11/30/16 10:25 36.5 80 16 98 Nasal Cannula 11/30/16 08:00 Nasal Cannula 4.0 11/30/16 07:25 80 16 98 Nasal Cannula 4.0 11/30/16 07:19 36.5 72 19 145/74 100 Nasal Cannula 4.0 11/30/16 04:07 36.5 76 20 125/69 95 CPAP 11/30/16 04:00 Nasal Cannula 4.0 11/30/16 00:00 Nasal Cannula 4.0 11/29/16 23:35 36.6 93 18 147/65 99 CPAP 11/29/16 20:00 Nasal Cannula 4.0 11/29/16 19:27 37.1 98 20 134/77 98 4.0 11/29/16 19:10 86 20 97 Nasal Cannula 4.0 11/29/16 16:00 Nasal Cannula 4.0 11/29/16 15:34 36.3 96 24 125/69 98 Nasal Cannula 4.0 11/29/16 15:15 96 20 97 Nasal Cannula 4.0 11/29/16 12:45 88 20 97 Nasal Cannula 4.0 11/29/16 12:00 Nasal Cannula 4.0 11/29/16 11:34 36.8 97 20 146/56 100 4.0 Laboratory Results: Last 24 Hours Test 11/30/16 05:56 White Blood Count 9.42 K/uL Red Blood Count 4.37 M/uL Hemoglobin 11.5 g/dL Hematocrit 37.1 % Mean Corpuscular Volume 84.9 fL Mean Corpuscular Hemoglobin 26.3 pg Mean Corpuscular Hemoglobin Concent 31.0 g/dl Platelet Count 364 K/uL Mean Platelet Volume 9.0 fL Neutrophils (%) (Auto) 75.1 % Lymphocytes (%) (Auto) 12.2 % Monocytes (%) (Auto) 8.8 % Eosinophils (%) (Auto) 0.5 % Basophils (%) (Auto) 0.2 % Neutrophils # (Auto) 7.07 K/uL Lymphocytes # (Auto) 1.15 K/uL Monocytes # (Auto) 0.83 K/uL Eosinophils # (Auto) 0.05 K/uL Basophils # (Auto) 0.02 K/uL RDW Standard Deviation 44.1 fL RDW Coefficient of Variation 14.1 % Immature Granulocyte % (Auto) 3.2 % Immature Granulocyte # (Auto) 0.30 K/uL Sodium Level 144 mmol/L Potassium Level 4.4 mmol/L Chloride Level 107 mmol/L Carbon Dioxide Level 33 mmol/L Anion Gap 4.0 mmol/L Blood Urea Nitrogen 27 mg/dl Creatinine 0.76 mg/dl Est Creatinine Clear Calc Drug Dose 63.2 ml/min Estimated GFR () 89.6 Estimated GFR (Non- 77.3 BUN/Creatinine Ratio 36.0 Random Glucose 127 mg/dl Calcium Level 8.9 mg/dl
[2016-11-30 11:12] VITALS: PULSE 74; O2SAT 98
[2016-11-30 14:24] LABS: LEGIONELLA ANTIGEN NOT DETECTED (NOT DETECTED)
--- NOTE | 2016-11-30 16:58 | Discharge Summary ---
Discharge Summary Date of Service November 30, 2016. Discharge Summary Admission Date: November 23, 2016 at 09:46 Discharge Date: November 30, 2016 Discharge Disposition: Home Principal Diagnosis: HCAP Immunizations: Have You Had Influenza Vaccine: No History of Tetanus Vaccine?: No Tetanus Immunization Date: Jun 07, 2003 History of Pneumococcal: Yes Pneumococcal Date: Jun 07, 2004 History of Hepatitis B Vaccine: No Procedures: SINGLE VIEW CHEST CLINICAL HISTORY: Dyspnea. COPD. FINDINGS: An AP, portable, upright chest radiograph is compared to study dated 11/10/2016 and correlated with chest CT dated 10/24/2016. The examination is degraded by portable technique and patient rotation. The cardiomediastinal silhouette is unremarkable. There is atherosclerotic calcification of the thoracic aorta. Emphysema and chronic interstitial thickening are similar to previous. There is patchy airspace consolidation at the right lung base and a trace right pleural effusion. The left lung is grossly clear. No pneumothorax is seen. The skeletal structures are osteopenic. There are healed right-sided rib fractures. Calcific tendinopathy is noted in the right shoulder. IMPRESSION: 1. There is patchy airspace consolidation at the right lung base with a trace right pleural effusion. The appearance is typical for pneumonia. Radiographic follow-up to resolution is recommended. 2. The left lung is grossly clear. 3. Emphysema. Electronically signed by: Cyril Saldivar M.D. 11/23/2016 9:05 AM CHEST ONE VIEW PORTABLE HISTORY: Short of breath. Pneumonia. COMPARISON: Chest 11/23/2016. FINDINGS: Near complete resolution of the right lower lobe airspace opacity. Trace right pleural effusion persists. The heart remains borderline enlarged. The left lung is clear. No pneumothorax. IMPRESSION: Near complete resolution of the right lower lobe airspace opacity. A trace right pleural effusion persists. Electronically signed by: Redd Buck M.D. 11/28/2016 8:25 AM Dictated Date/Time: 11/28/2016 8:24 AM Last Resulted CBC 11/30/16 05:56 Red Blood Count 4.37, Mean Corpuscular Volume 84.9, Mean Corpuscular Hemoglobin 26.3, Mean Corpuscular Hemoglobin Concent 31.0, Mean Platelet Volume 9.0, Neutrophils (%) (Auto) 75.1, Lymphocytes (%) (Auto) 12.2, Monocytes (%) (Auto) 8.8, Eosinophils (%) (Auto) 0.5, Basophils (%) (Auto) 0.2, Neutrophils # (Auto) 7.07, Lymphocytes # (Auto) 1.15, Monocytes # (Auto) 0.83, Eosinophils # (Auto) 0.05, Basophils # (Auto) 0.02 Last Resulted BMP 11/30/16 05:56 Consultations: pulmonary Medication Reconciliation New Medications: Azithromycin (Zithromax) 250 Mg Tab 250 MG PO UD, #30 TAB take every other day, starting 12/01 Fluconazole (Diflucan) 150 Mg Tab 150 MG PO UD, #1 TAB 2 Refills take one PO once as needed for yeast infection Prednisone Tab (Prednisone) 10 Mg Tab 10 MG PO UD, #18 TAB 3 po daily x 3 days then 2 po daily x 3 days then 1 po daily x 3 days then as directed by dr emilee Chaseflumilast (Daliresp) 500 Mcg Tab 1 TAB PO DAILY for 30 Days, #30 TAB 3 Refills Continued Medications: Acetaminophen (Tylenol) 325 Mg Tab 650 MG PO Q4 PRN for Pain or Fever, TAB Alprazolam (Xanax) 0.5 Mg Tab 0.5 MG PO Q12 PRN for Anxiety and/or Sedation, TAB Amitriptyline HCl (Amitriptyline HCl) 100 Mg Tab 100 MG PO HS Aspirin (Aspirin 81) 81 Mg Tab 81 MG PO DAILY Baclofen (Lioresal) 10 Mg Tab 10 MG PO TID PRN for spasms, TAB Chgjuznacj-Etiqzavhgdxbk-Bgjsk (Fioricet) 1 Cap Cap 1 TAB PO Q4 PRN for headache Clopidogrel Bisulfate (Clopidogrel) 75 Mg Tab 75 MG PO DAILY Diltiazem Hcl Extended Release (Diltiazem Hcl Er) 120 Mg Cap 120 MG PO DAILY Docusate Sodium (Docusate Sodium) 100 Mg Cap 10 MG PO BID, #60 CAP Ergocalciferol (Vitamin D 86667 Unit) 50,000 Unit Cap 60868 INTERUNIT PO Tu@0900 for 90 Days, #12 CAP Fluticasone Furoate-Vilanterol (Breo Ellipta) 1 Inh Inh 1 PUFF INH DAILY 100/25 Furosemide (Lasix) 40 Mg Tab 120 MG PO DAILY, 0 Refills Hydrocortisone (Topical) (Hydrocortisone) 2.5 % Lot 1 APPLN TOP BID for 10 Days, #60 ML Ipratropium-Albuterol (Combivent Respimat) 1 Aer Aer 1 PUFFS INH QID, INH Ipratropium-Albuterol (Duoneb) 3 Ml Nebu 1 TREATMENT INH Q4H, INHA Losartan Potassium & Hydrochlo (Hyzaar) 1 Tab Tab 12.5-100 MG PO DAILY for 90 Days, TAB 3 Refills Nitroglycerin (Nitrostat) 0.4 Mg Sub 0.4 MG UT UD PRN for Chest Pain, BTL PLACE ONE TABLET UNDER THE TONGUE EVERY MINUTES FOR UP TO 3 DOSES IF NEEDED FOR CHEST PAIN. Oxycodone Hcl (Oxycontin) 15 Mg Tab 15 MG PO Q12, #60 Oxycodone HCl (Oxycodone HCl) 5 Mg Tab 5 MG PO Q3.5H PRN for Pain, #75 Oxygen (Oxygen) Gas 4 LITERS NA CONTINOUS Pantoprazole (Protonix) 40 Mg Tab 40 MG PO BID, TAB Potassium Ext Rel (Klor-Con) 20 Meq Tabcr 60 MEQ PO TID, TAB Simvastatin (Zocor) 10 Mg Tab 10 MG PO QPM, 0 Refills Topiramate (Topamax) 100 Mg Tab 100 MG PO DAILY, TAB Triamcinolone Acet (Aristocort 0.1%) 90 Appln/30 Gm Cr 1 APPLN TOP BID APPLY SPARINGLY TO AFFECTED AREA(S). Umeclidinium [place] (Incruse Ellipta) 62.5 Mcg/Inh Inh 1 INHA PO DAILY for 30 Days, #1 INHALER Discontinued Medications: Levofloxacin (Levofloxacin) 500 Mg Tab 500 MG PO DAILY@11 for 1 Day, #1 TAB Prednisone (Prednisone) 10 Mg Tab 10 MG PO DIRECTED for 30 Days, #30 TAB 50mg x 2 days 40 x 2 day 30x 2 days 20 x 2 days end at 10 mg daily Discharge Exam Physical Exam: General Appearance: no apparent distress Eyes: EOMI ENT: hearing grossly normal Neck: trachea midline Respiratory/Chest: no respiratory distress, no accessory muscle use Extremities: normal inspection Neurologic/Psychiatric: dross puller II-XII nml as tested, alert, normal mood/affect Skin: normal color, warm/dry Hospital Course 1. Sepsis secondary to HCAP - improving - finished course of abx - 7 days of levaquin - no need for further ongoing abx 2. Acute on chronic COPD Exacerbation liked secondary to HCAP - not as short of breath - Duonebs, Incruse, Breo ,and BiPAP when necessary and daily at bedtime - tapering steroids - appreciate pulmonary thoughts on daliresp or zithromax QOD -- daliresp not covered, zithromax 250mg QOD started - stable for home 3. Chronic diastolic heart failure now with acute exacerbation - improving - likely secondary to hydration received during sepsis treatment. - appearing compensated - Continue lasix 40mg TID PO. - follow periodic BMP as oupt 4. Coronary artery disease-stable, nonobstructive CAD on cath in 2005, Dobutamine stress normal 2014 - Continued aspirin, plavix, simvastatin - no symptoms 5. hypertension - continue to monitor - continue losartan. resume cardizem 6. Weakness - has been refusing PT/OT, won't go to rehab, encouraged activity to increase 7. Pt is FULL CODE 8. DVT prophylaxis with heparin 9. Hx of C.Diff - has some diarrhea - C. Diff negative stable for home, close outpt f/u - updated pulmonary team for outpt f/u Total Time Spent: Greater than 30 minutes This includes examination of the patient, discharge planning, medication reconciliation, and communication with other providers. Discharge Instructions Please refer to the electronic Patient Visit Report (Discharge Instructions) for additional information. Additional Copies To Jaswant Patel M.D.; Gilmer Chandler PA-C
== END 2016-11-30 14:16 | disposition home or self-care (01) | DRG 871 ==
LOC: ENRESERVTM → ENRESERVDT → EDBD 08:22 → C.EDB 08:24 → C.MED 09:46
PROVIDERS: ADMIT Hospitalist; ATTEND Family Medicine
DX: A41.9 Sepsis, unspecified organism (principal); J18.9 Pneumonia, unspecified organism; I50.33 Acute on chronic diastolic (congestive) heart failure; J96.20 Acute and chronic respiratory failure, unspecified whether with hypoxia or hypercapnia; J44.1 Chronic obstructive pulmonary disease with (acute) exacerbation; M48.50XA Collapsed vertebra, not elsewhere classified, site unspecified, initial encounter for fracture; J44.0 Chronic obstructive pulmonary disease with (acute) lower respiratory infection; J20.9 Acute bronchitis, unspecified; I11.0 Hypertensive heart disease with heart failure; I25.10 Atherosclerotic heart disease of native coronary artery without angina pectoris; R53.1 Weakness; R19.7 Diarrhea, unspecified; Z79.52 Long term (current) use of systemic steroids; Z79.82 Long term (current) use of aspirin; Z79.899 Other long term (current) drug therapy